=== PATIENT | female | born 1945 | race Caucasian/White ===

== ENCOUNTER → 2019-02-05 | Day surgery (SDC) | payer MEDICARE, OTHER ==
[~2019-02-05] MED LIST: AMLODIPINE BESY10 MG PO; ANORO INH; ASPIR 8181 MG PO; ATORVASTATIN CA20 MG PO; CO Q-10200 MG PO; FENTANYL CITRATE/PF 100MCG/2 ML INJ ONE; FLONASE; LEVOTHYROXINE75 MCG PO; LOSARTAN POTAS100 MG PO; METOPROLOL SUCC50 MG PO; MIDAZOLAM HCL 2 MG/2 ML VIAL ONE; MONTELUKAST SOD10 MG PO; MULTIVITAMINS1 EAC7 PO; OR PHACO EYE KIT ONE; PANTOPRAZOLE SO20 MG PO; POVIDONE IODINE 5% (OPTH) 30 ML BTL ONE; PREOP PHACO EYE KIT ONE; PROMETHAZINE DM PO; VITAMIN B12-FO1 EACH PO
--- OUTSIDE RECORDS SUMMARY | 2019-02-05 08:57 | XMS REPORT | Continuity of Care Document ---
Author Author [facility] Interface Address Unknown Phone Unavailable Problems Problem Status Onset Date Classification Date Reported Comments Source * Active 11/15/2018 [facility] M54.5 Active 09/20/2018 [facility] CCL/EP STUDY POSS SVT ABLATION W/RHYTHMI Active 01/29/2018 [facility] J18.9=PNEUMONIA, UNSPECIFIED ORGANISM Active 01/25/2018 [facility] CCL/LHC W/ POSS PCI Active 01/19/2018 [facility] Bronchopneumonia, unspecified organism 11/24/2017 02/25/2018 [facility] DEHYDRATION Active 11/14/2017 [facility] BRONCHIAL PNEUMONA, DEHYDRATION Active 11/14/2017 [facility] DX: M54.5=LOW BACK PAIN M54.6=PAIN Active 07/27/2017 [facility] M54.5 M54.6 Active 07/02/2017 [facility] DX: R92.8=OTHER ABNORMAL AND INCONCLUSIV Active 08/04/2016 [facility] ROUTINE Active 06/24/2015 [facility] 461.9 Active 11/05/2014 [facility] SCREENING Active 06/07/2013 [facility] ROUTINE SCREENING Active 04/24/2012 [facility] ARF - Acute renal failure Resolved 10/12/2010 Problem 02/25/2018 [facility] Abdominal hysterectomy Active Problem 02/25/2018 [facility] Appendectomy Active Problem 02/25/2018 [facility] Degenerative joint disease Active Problem 02/25/2018 [facility] GERD - Gastro-esophageal reflux disease Active Problem 02/25/2018 [facility] HTN - Hypertension Active Problem 02/25/2018 [facility] Hypothyroidism<sup>1</sup> Active Problem 02/25/2018 Data migrated from [facility] on 03/03/15. [facility] Knee replacement Active Problem 02/25/2018 [facility] Abdominal hysterectomy Active Problem 06/13/2013 [facility] Appendectomy Active Problem 06/13/2013 [facility] ARF - Acute renal failure Resolved Problem 06/13/2013 [facility] Degenerative joint disease Active Problem 06/13/2013 [facility] GERD - Gastro-esophageal reflux disease Active Problem 06/13/2013 [facility] HTN - Hypertension Active Problem 06/13/2013 [facility] Knee replacement Active Problem 06/13/2013 [facility] 02/25/2018 [facility],Enayet Rahi Acute kidney failure, unspecified 02/25/2018 [facility] Glomerular 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 02/25/2018 [facility] Occlusion and stenosis of right carotid artery 02/25/2018 [facility] Chronic kidney disease, stage 3 02/25/2018 [facility] Hypertensive chronic kidney disease with stage 1 through stage 4 chronic kidney disease, or unspecified chronic kidney disease 02/25/2018 [facility] Hypothyroidism, unspecified 02/25/2018 [facility] Encounter for immunization 02/25/2018 [facility] Personal history of nicotine dependence 02/25/2018 [facility] Proteinuria, unspecified 02/25/2018 [facility] Murmur Active Problem 02/25/2018 [facility] Hyperlipidemia Active Problem 02/25/2018 [facility] Hypertension Active Problem 02/25/2018 [facility] Lymphedema Active Problem 02/25/2018 [facility] Mitral valve prolapse Active Problem 02/25/2018 [facility] Tricuspid regurgitation Active Problem 02/25/2018 [facility] Breast cancer screening Active Problem 01/18/2019 Enayet Rahim Essential hypertension Active Problem 01/18/2019 Enayet Rahim Other chronic pain Active Problem 01/18/2019 Enayet Rahim Difficulty walking Active Problem 01/18/2019 Enayet Rahim Patient had no falls in past year Active Problem 01/18/2019 Enayet Rahim Screening for osteoporosis Active Problem 01/18/2019 Enayet Rahim Pure hypercholesterolemia Active Problem 01/18/2019 Enayet Rahim Chronic kidney disease , stage III (moderate) Active Diagnosis 01/18/2019 Enayet Rahim Acquired hypothyroidism Active Problem 01/18/2019 Enayet Rahim Acute tracheobronchitis Active Diagnosis 12/31/2017 Enayet Rahim Lumbar spine painful on movement Active Diagnosis 07/30/2017 Enayet Rahim Thoracic spine pain Active Diagnosis 07/30/2017 Enayet Rahim Pain of lumbar spine Active Diagnosis 07/30/2017 Enjade Rahim Persistent proteinuria Active Diagnosis 07/08/2017 Enfranket Rahim Toenail fungus Active Diagnosis 07/08/2017 Enjade Thomsonm Dysphagia Active Problem 05/20/2017 [id number] HTN Active Problem 05/20/2017 [id number] Hypothyroidism Active Problem 05/20/2017 [id number] CKD Active Problem 05/20/2017 [id number] Motion sickness Active Problem 05/20/2017 [id number] HLD Active Problem 05/20/2017 [id number] GERD Active Problem 05/20/2017 [id number] Pulmonary Mycobacterium avium complex infection Active Problem 01/18/2019 Dennis Suarez Near syncope Active Diagnosis 11/27/2017 Dennis Suarez Fatigue due to excessive exertion, subsequent encounter Active Diagnosis 02/14/2018 Dennis Thomsonm SOB Active Diagnosis 01/16/2018 Dennis Suarez Acute bronchitis, unspecified organism Active Diagnosis 12/04/2017 Dennis Suarez Community acquired pneumonia of left upper lobe of lung Active Diagnosis 01/16/2018 Dennis Suarez Pain in left knee Active Diagnosis 11/13/2016 Dennis Suarez At risk for falling Active Diagnosis 11/13/2016 Enjade Thomsonm Age-related nuclear cataract of both eyes Active Problem 01/18/2019 Dennis Thomsonm Pre-operative clearance Active Diagnosis 01/18/2019 John Pauljade Suarez ACUTE SINUSITIS NOS Active [facility] SCREEN MAMMOGRAM NEC Active [facility] OTH ABN AND INCONCLUSIVE FINDINGS ON DX Active [facility] LOW BACK PAIN Active [facility] SUPRAVENTRICULAR TACHYCARDIA Active [facility] RHEUMATIC MITRAL VALVE DISEASE, UNSPECIF Active [facility] AGE-RELATED OSTEOPOROSIS W/O CURRENT PAT Active [facility] ABNORMAL ELECTROCARDIOGRAM [ECG] [EKG] Active [facility] PNEUMONIA, UNSPECIFIED ORGANISM Active [facility] DEHYDRATION Active [facility] BRONCHOPNEUMONIA, UNSPECIFIED ORGANISM Active [facility] CHRONIC SINUSITIS, UNSPECIFIED Active [facility] Medications Medication Details Route Status Patient Instructions Ordering Provider Order Date Source Atorvastatin Calcium 1 tablet Orally Active 40 MG Orally Once a day [place]ver 09/17/2018 Dennis Suarez Amlodipine 10 mg, 1 tab, Route: PO, Drug form: TAB, Daily, Dosing Weight 89.091, kg, Start date: 02/14/18 9:00:00 CDT, Duration: 30 day, Stop date: 03/15/18 9:00:00 CDTNotes: (Same as: Norvasc) No Longer Active 02/14/2018 [facility] Thyroxine 150 microgram, 1 tab, Route: PO, Drug form: TAB, Daily, Dosing Weight 89.091, kg, Start date: 02/14/18 6:30:00 CDT, Duration: 30 day, Stop date: 03/15/18 6:30:00 CDTNotes: Take 1 hour before or 2 hours after meal; Enteral feeds may interefere with the absorption of this medication. (Same as: Levothroid) No Longer Active 02/14/2018 [facility] mycophenolate mofetil 1,000 mg, 2 tab, Route: PO, Drug form: TAB, Q12H, Dosing Weight 89.091, kg, Start date: 02/13/18 21:00:00 CDT, Duration: 30 day, Stop date: 03/15/18 9:00:00 CDTNotes: SEPARATE ANTACIDS from [employer] by 2 hrs. (Same As: CellCept) Inactive 02/14/2018 [facility] atorvastatin 80 mg, 2 tab, Route: PO, Drug form: TAB, Bedtime, Dosing Weight 89.091, kg, Start date: 02/13/18 21:00:00 CDT, Duration: 30 day, Stop date: 03/14/18 21:00:00 CDTNotes: (Same as: Lipitor) Inactive 02/14/2018 [facility] Aspirin 81 MG Enteric Coated Tablet 81 mg, 1 tab, Route: PO, Drug form: ECTAB, Bedtime, Dosing Weight 89.091, kg, Start date: 02/13/18 21:00:00 CDT, Duration: 30 day, Stop date: 03/14/18 21:00:00 CDTNotes: Do not crush or chew. (Same As: Ecotrin) Inactive 02/14/2018 [facility] pantoprazole 40 mg, 1 tab, Route: PO, Drug form: ECTAB, BID-Before Meals, Dosing Weight 89.091, kg, Start date: 02/13/18 16:30:00 CDT, Duration: 30 day, Stop date: 03/15/18 7:30:00 CDTNotes: Tablet should not be chewed or crushed. (Same as: Protonix) Inactive 02/13/2018 [facility] Nitroglycerin 0.4 mg, 1 tab, Route: SL, Drug form: TAB, Q5Min, Dosing Weight 89.091, kg, PRN Chest Pain, Start date: 02/13/18 16:05:00 CDT, Duration: 3 doses or times, Stop date: Limited # of timesNotes: (Same as: Nitroquick, Nitrostat) "Do Not Crush" Sublingual tablet Inactive 02/13/2018 [facility] Losartan 100 mg, 1 tab, Route: PO, Drug form: TAB, Daily, Dosing Weight 89.091, kg, PRN Hypertension, Start date: 02/13/18 16:04:00 CDT, Duration: 30 day, Stop date: 03/15/18 16:03:00 CDTNotes: (Same as: Nae) Inactive 02/13/2018 [facility] amLODIPine 10 mg oral tablet 10 mg=1 tab, PO, Daily, # 30 tab, 0 Refill(s) Active 02/13/2018 [facility] NS 1,000 mL 1,000 mL, Rate: 100 ml/hr, Infuse over: 10 hr, Route: IV, Dosing Weight 89.091 kg, Total Volume: 1,000, Start date: 02/13/18 7:42:00 CDT, Duration: 30 day, Stop date: 03/15/18 7:41:00 CDT, 2.13, m2 Inactive 02/13/2018 [facility] atorvastatin 80 mg, 1 tab, Route: PO, Drug form: TAB, Bedtime, Dosing Weight 87.727, kg, Start date: 01/22/18 21:00:00 CDT, Duration: 30 day, Stop date: 02/20/18 21:00:00 CDTNotes: Same as Lipitor No Longer Active 01/23/2018 [facility] Aspirin 81 MG Enteric Coated Tablet 81 mg, 1 tab, Route: PO, Drug form: ECTAB, Bedtime, Dosing Weight 87.727, kg, Start date: 01/22/18 21:00:00 CDT, Duration: 30 day, Stop date: 02/20/18 21:00:00 CDTNotes: Do not crush or chew. (Same As: Ecotrin) No Longer Active 01/23/2018 [facility] mycophenolate mofetil 1,000 mg, 2 tab, Route: PO, Drug form: TAB, [id number], Dosing Weight 87.727, kg, Start date: 01/22/18 20:00:00 CDT, Duration: 30 day, Stop date: 02/21/18 8:00:00 CDTNotes: SEPARATE ANTACIDS from [employer] by 2 hrs. (Same As: CellCept) No Longer Active 01/23/2018 [facility] Amiodarone 200 mg, 1 tab, Route: PO, Drug form: TAB, BID, Dosing Weight 87.727, kg, Start date: 01/22/18 17:00:00 CDT, Duration: 30 day, Stop date: 02/21/18 9:00:00 CDTNotes: (Same as: Cordarone) No Longer Active 01/22/2018 [facility] normal saline 0.9% IV 1,000 mL 1,000 mL, Rate: 100 ml/hr, Infuse over: 10 hr, Route: IV, Dosing Weight 87.727 kg, Total Volume: 1,000, Start date: 01/22/18 15:15:00 CDT, Duration: 30 day, Stop date: 02/21/18 15:14:00 CDT, 2.11, m2 No Longer Active 01/22/2018 [facility] Amlodipine 5 mg, 1 tab, Route: PO, Drug form: TAB, Daily, Dosing Weight 87.727, kg, PRN Hypertension, Start date: 01/22/18 15:14:00 CDT, Duration: 30 day, Stop date: 02/21/18 15:13:00 CDTNotes: (Same as: Norvas) No Longer Active 01/22/2018 [facility] metoprolol 50 mg oral tablet, extended release 50 mg=1 tab, PO, Daily, # 30 tab, 0 Refill(s) Active 01/22/2018 [facility] atorvastatin 80 mg oral tablet 80 mg=1 tab, PO, Bedtime, # 90 tab, 0 Refill(s) Active 01/22/2018 [facility] Aspirin 81 MG Enteric Coated Tablet 81 mg=1 tab, PO, Bedtime, # 90 tab, 3 Refill(s) Active 01/22/2018 [facility] AMIODarone 200 mg oral tablet 200 mg=1 tab, PO, BID, # 180 tab, 0 Refill(s) Active 01/22/2018 [facility] Amlodipine 5 mg, PO, Daily, PRN Hypertension, 0 Refill(s) Active 01/22/2018 [facility] PredniSONE as directed Orally Active 20 mg Orally 40mg, 30 mg 20 mg , 10 mg, taper dose [facility] 1 tab Orally Active 500 MG Orally daily 01/12/2018 [facility] Flutic[facility] Propionate 1 spray in each nostril Nasally Active 50 MCG/ACT Nasally Once a day 11/28/2017 [facility] Atrovent HFA 2 puffs Inhalation Active 17 MCG/ACT Inhalation Four times a day as needed 11/28/2017 [facility] Fexofenadine HCl 1 tablet as needed Orally Active 60 MG Orally Twice a day 11/28/2017 [facility] predniSONE 10 mg oral tablet See Special Instructions, PO, Daily, D 1 - 3 tabs D2 - 2 1/2 tab D3 - 2 tabs D 4 -1 1/2 tab D5 - 1 tab D 6 - 1/2 tab, X 6 day, # 12 tab, 0 Refill(s), Pharmacy: [facility] [id number] No Longer Active 11/19/2017 [facility] azithromycin 500 mg oral tablet 500 mg=1 tab, PO, Daily, X 5 day, # 5 tab, 0 Refill(s), Pharmacy: [facility] [id number] No Longer Active 11/19/2017 [facility] amLODIPine 5 mg oral tablet 5 mg=1 tab, PO, Daily, # 30 tab, 3 Refill(s), Pharmacy: [facility] [id number] No Longer Active 11/19/2017 [facility] Omnipaque 350 100 ml, Route: IV, Drug Form: SOLN, Dosing Weight 93.636, kg, ONCE, Start date: 11/18/17 10:03:00 FIELD REIMBURSEMENT MANAGER, Stop date: 11/18/17 10:03:00 CSTNotes: (same as:Omnipaque 350). WASTE: F/P - Black; E - [employer] Inactive 11/18/2017 [facility] Amlodipine 5 mg, 1 tab, Route: PO, Drug form: TAB, Daily, Dosing Weight 93.636, kg, Start date: 11/18/17 9:00:00 FIELD REIMBURSEMENT MANAGER, Duration: 30 day, Stop date: 12/17/17 9:00:00 CDTNotes: (Same as: Norvasc) No Longer Active 11/18/2017 [facility] Acetylcysteine 200 MG/ML Inhalant Solution 600 mg, Route: PO, Drug form: SOLN, BID, Dosing Weight 93.636, kg, Start date: 11/17/17 17:00:00 FIELD REIMBURSEMENT MANAGER, Duration: 2 day, Stop date: 11/19/17 9:00:00 FIELD REIMBURSEMENT MANAGER Inactive 11/17/2017 [facility] Plavix 75 mg, 1 tab, Route: PO, Drug form: TAB, Daily, Dosing Weight 93.636, kg, Start date: 11/17/17 9:00:00 FIELD REIMBURSEMENT MANAGER, Duration: 30 day, Stop date: 12/16/17 9:00:00 CDTNotes: (Same As: Plavix) Inactive 11/17/2017 [facility] Acetylcysteine 200 MG/ML Inhalant Solution 600 mg, 3 mL, Route: PO, Drug form: SOLN, BID, Dosing Weight 93.636, kg, Start date: 11/17/17 9:00:00 FIELD REIMBURSEMENT MANAGER, Duration: 2 day, Stop date: 11/18/17 17:00:00 FIELD REIMBURSEMENT MANAGER No Longer Active 11/17/2017 [facility] Xopenex 0.63 mg, 3 mL, Route: NEB, Drug form: SOLN, PRN, PRN Respiratory Protocol, Start date: 11/16/17 11:55:00 FIELD REIMBURSEMENT MANAGER, Duration: 30 day, Stop date: 12/16/17 12:54:00 CDTNotes: SEE RT DOCUMENTATION (Same as:Xopenex) Non-Formulary No Longer Active 11/16/2017 [facility] methylPREDNISolone SODium SUCCinate 40 mg, 1 mL, Route: IVP, Drug form: INJ, Q12H, Dosing Weight 93.636, kg, Start date: 11/16/17 9:07:00 FIELD REIMBURSEMENT MANAGER, Duration: 30 day, Stop date: 12/16/17 9:00:00 CDTNotes: (Same as:Solu-MEDROL, A-Methapred) No Longer Active 11/16/2017 [facility] Tylenol 650 mg, 20.3 mL, Route: PO, Drug form: LIQ, Q6H, Dosing Weight 93.636, kg, PRN Pain Score 6-10, Start date: 11/16/17 9:04:00 FIELD REIMBURSEMENT MANAGER, Duration: 30 day, Stop date: 12/16/17 9:03:00 CDTNotes: Max acetaminophe p=9332fb/day (4 gm/day). (Same as: Tylenol) No Longer Active 11/16/2017 [facility] Xopenex 0.63 mg, Route: NEB, PRN, Dosing Weight 93.636, kg, PRN Respiratory Protocol, Start date: 11/16/17 7:42:00 FIELD REIMBURSEMENT MANAGER, Duration: 30 day, Stop date: 12/16/17 8:41:00 CDT, Substitute Allowed Never Inactive 11/16/2017 [facility] albuterol 1.25 mg, 3 mL, Route: NEB, Drug form: SOLN, PRN, PRN Respiratory Protocol, Start date: 11/16/17 7:35:00 FIELD REIMBURSEMENT MANAGER, Duration: 30 day, Stop date: 12/16/17 8:34:00 CDTNotes: SEE RT DOCUMENTATION (Same as: Proventil) Inactive 11/16/2017 [facility] Xopenex 0.63 mg, Route: NEB, PRN, Dosing Weight 93.636, kg, PRN Respiratory Protocol, Start date: 11/16/17 7:31:00 FIELD REIMBURSEMENT MANAGER, Duration: 30 day, Stop date: 12/16/17 8:30:00 CDT Inactive 11/16/2017 [facility] Imodium A-D 2 mg, 1 cap, Route: PO, Drug form: CAP, Q6H, Dosing Weight 93.636, kg, PRN Loose Stools, Start date: 11/15/17 20:08:00 FIELD REIMBURSEMENT MANAGER, Duration: 30 day, Stop date: 12/15/17 20:07:00 CDTNotes: (Same as: Imodium) MAX adult dose is 8 caps/day No Longer Active 11/16/2017 [facility] Losartan 100 mg, 2 tab, Route: PO, Drug form: TAB, Daily, Dosing Weight 92.273, kg, Start date: 11/15/17 9:00:00 FIELD REIMBURSEMENT MANAGER, Duration: 30 day, Stop date: 12/14/17 9:00:00 CDTNotes: (Same as: Cozaar) No Longer Active 11/15/2017 [facility] Vitamin B12 500 microgram, 1 tab, Route: PO, Drug form: TAB, Daily, Dosing Weight 92.273, kg, Start date: 11/15/17 9:00:00 FIELD REIMBURSEMENT MANAGER, Duration: 30 day, Stop date: 12/14/17 9:00:00 CDTNotes: (Same As: Vitamin B12) No Longer Active 11/15/2017 [facility] Lipitor 40 mg, 1 tab, Route: PO, Drug form: TAB, Daily, Dosing Weight 92.273, kg, Start date: 11/15/17 9:00:00 FIELD REIMBURSEMENT MANAGER, Duration: 30 day, Stop date: 12/14/17 9:00:00 CDTNotes: (Same as: Lipitor) No Longer Active 11/15/2017 [facility] influenza virus vaccine, inactivated 0.5 mL, Route: IM, Drug Form: SUSP, Daily, Start date: 11/15/17 9:00:00 FIELD REIMBURSEMENT MANAGER, Duration: 1 doses or times, Stop date: 11/15/17 9:00:00 CSTNotes: (Same as: Fluzone Quadrivalent, Fluarix Quadrivalent) For 3 years of age and older (0.5 mL IM) Shake well before use Inactive 11/15/2017 [facility] Streptococcus pneumoniae serotype 1 capsular antigen diphtheria [id number] protein conjugate vaccine / Streptococcus pneumoniae serotype 14 capsular antigen diphtheria [id number] protein conjugate vaccine / Streptococcus pneumoniae serotype 18C capsular antigen d 0.5 mL, Route: IM, Drug Form: INJ, Daily, Start date: 11/15/17 9:00:00 FIELD REIMBURSEMENT MANAGER, Duration: 1 doses or times, Stop date: 11/15/17 9:00:00 CSTNotes: Shake well prior to use (Same as: Prevnar 13) Inactive 11/15/2017 [facility] Co-Q10 200 mg, Route: PO, Drug form: CAP, Daily, Dosing Weight 92.273, kg, Start date: 11/15/17 9:00:00 FIELD REIMBURSEMENT MANAGER, Duration: 30 day, Stop date: 12/14/17 9:00:00 CDT No Longer Active 11/15/2017 [facility] mycophenolate mofetil 1,000 mg, 2 tab, Route: PO, Drug form: TAB, Daily, Dosing Weight 92.273, kg, Start date: 11/15/17 9:00:00 FIELD REIMBURSEMENT MANAGER, Duration: 30 day, Stop date: 12/14/17 9:00:00 CDTNotes: SEPARATE ANTACIDS from [employer] by 2 hrs. (Same As: CellCept) No Longer Active 11/15/2017 [facility] metoprolol extended release 25 mg, 1 tab, Route: PO, Drug form: ERTAB, BID, Dosing Weight 92.273, kg, Start date: 11/15/17 9:00:00 FIELD REIMBURSEMENT MANAGER, Duration: 30 day, Stop date: 12/14/17 21:00:00 CDTNotes: (Same as: Toprol XL) Do Not Crush No Longer Active 11/15/2017 [facility] Robitussin DM 10 mL, Route: PO, Drug Form: LIQ, Dosing Weight 92.273, kg, Q4H, PRN as needed for cough, Start date: 11/15/17 8:49:00 FIELD REIMBURSEMENT MANAGER, Duration: 30 day, Stop date: 12/15/17 8:48:00 CDTNotes: (dextromethorphan-g uaifenesin 10-100/5 ml LIQ) (Same as: Robitussin-DM) No Longer Active 11/15/2017 [facility] Albuterol 0.83 MG/ML Inhalant Solution 2.49 mg, 3 mL, Route: NEB, Drug form: SOLN, PRN, Dosing Weight 92.273, kg, PRN Respiratory Protocol, Start date: 11/15/17 8:49:00 FIELD REIMBURSEMENT MANAGER, Duration: 30 day, Stop date: 12/15/17 9:48:00 CDTNotes: SEE RT DOCUMENTATION (Same as: Proventil) No Longer Active 11/15/2017 [facility] pantoprazole 40 mg, 1 tab, Route: PO, Drug form: ECTAB, BID-Before Meals, Dosing Weight 92.273, kg, Start date: 11/15/17 7:30:00 FIELD REIMBURSEMENT MANAGER, Duration: 30 day, Stop date: 12/14/17 16:30:00 CDTNotes: Tablet should not be chewed or crushed. (Same as: Protonix) No Longer Active 11/15/2017 [facility] Thyroxine 150 microgram, 1 tab, Route: PO, Drug form: TAB, Q630AM, Dosing Weight 92.273, kg, Start date: 11/15/17 6:30:00 FIELD REIMBURSEMENT MANAGER, Duration: 30 day, Stop date: 12/14/17 6:30:00 CDTNotes: Take 1 hour before or 2 hours after meal; Enteral feeds may interefere with the absorption of this medication. (Same as: Levothroid) No Longer Active 11/15/2017 [facility] *RN pls bring pts home med Co-Q10 to pharmacy to label* *RN pls bring pts home med Co-Q10 to pharmacy to label*, Reminder, Drug form: MISC, Route: MISC, QSHIFT, 11/15/17 0:00:00 FIELD REIMBURSEMENT MANAGER, Duration: 30 day, Stop date: 12/14/17 16:00:00 CDT No Longer Active 11/15/2017 [facility] Lipitor 40 mg, 1 tab, Route: PO, Drug form: TAB, Bedtime, Dosing Weight 92.273, kg, Start date: 11/14/17 21:30:00 FIELD REIMBURSEMENT MANAGER, Duration: 30 day, Stop date: 12/14/17 21:00:00 CDTNotes: (Same as: Lipitor) No Longer Active 11/15/2017 [facility] benazepril 40 mg, Route: PO, Drug form: TAB, Bedtime, Dosing Weight 92.273, kg, Start date: 11/14/17 21:00:00 FIELD REIMBURSEMENT MANAGER, Duration: 30 day, Stop date: 12/13/17 21:00:00 CDT Inactive 11/15/2017 [facility] Robitussin 100 mg, 5 mL, Route: PO, Drug Form: LIQ, Dosing Weight 92.273, kg, Q4H, PRN as needed for congestion, Start date: 11/14/17 21:00:00 FIELD REIMBURSEMENT MANAGER, Duration: 30 day, Stop date: 12/14/17 20:59:00 CDTNotes: (Same as: Robitussin) No Longer Active 11/15/2017 [facility] mycophenolate mofetil 500 mg, 1 tab, Route: PO, Drug form: TAB, Bedtime, Dosing Weight 92.273, kg, Start date: 11/14/17 21:00:00 FIELD REIMBURSEMENT MANAGER, Duration: 30 day, Stop date: 12/13/17 21:00:00 CDTNotes: SEPARATE ANTACIDS from [employer] by 2 hrs. (Same As: CellCept) No Longer Active 11/15/2017 [facility] lisinopril 40 mg, 2 tab, Route: PO, Drug form: TAB, Bedtime, Start date: 11/14/17 21:00:00 FIELD REIMBURSEMENT MANAGER, Duration: 30 day, Stop date: 12/13/17 21:00:00 CDTNotes: (Same as: Prinivil, Zestril) No Longer Active 11/15/2017 [facility] mycophenolate mofetil 500 mg oral tablet 1,000 mg=2 tab, PO, Q12H, # 360 tab, 0 Refill(s) Active 11/15/2017 [facility] levothyroxine 150 mcg (0.15 mg) oral tablet 150 microgram=1 tab, PO, Daily, # 90 tab, 1 Refill(s) Active 11/15/2017 [facility] Promethazine DM oral syrup 5 mL, PO, BID-Before Meals, PRN for cough, # 120 mL, 0 Refill(s) No Longer Active 11/15/2017 [facility] benazepril 40 mg oral tablet 40 mg=1 tab, PO, Bedtime, # 90 tab, 0 Refill(s) No Longer Active 11/15/2017 [facility] Rocephin 1 gm, Route: IV, Drug form: PDR/INJ, [id number], Dosing Weight 90.909, kg, Start date: 11/14/17 18:00:00 FIELD REIMBURSEMENT MANAGER, Duration: 7 day, Stop date: 11/20/17 18:00:00 FIELD REIMBURSEMENT MANAGER, ABX Indication: PneumoniaNotes: (Same As: Michelle cephin). Use with 100 mL NS and infuse over 30 min MEDICATION WASTE Product Size: 1000 mg Product Wasted: ___ mg No Longer Active 11/15/2017 [facility] Azithromycin 500 mg, Route: IVPB, [id number], Dosing Weight 90.909, kg, Start date: 11/14/17 18:00:00 FIELD REIMBURSEMENT MANAGER, Duration: 10 day, Stop date: 11/23/17 18:00:00 FIELD REIMBURSEMENT MANAGER, ABX Indication: PneumoniaNotes: (Same As: Zithromax IV) No Longer Active 11/15/2017 [facility] Albuterol 0.83 MG/ML Inhalant Solution 2.49 mg, 3 mL, Route: NEB, Drug form: SOLN, PRN, Dosing Weight 92.273, kg, PRN Respiratory Protocol, Start date: 11/14/17 17:47:00 FIELD REIMBURSEMENT MANAGER, Duration: 30 day, Stop date: 12/14/17 18:46:00 CDTNotes: SEE RT DOCUMENTATION (Same as: Proventil) No Longer Active 11/14/2017 [facility] Docusate 100 mg, 1 cap, Route: PO, Drug form: CAP, BID, Dosing Weight 90.909, kg, PRN as needed for constipation, 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, Duration: 30 day, Stop date: 12/14/17 17:39:00 CDTNotes: (Same as: Colace) (Do Not Crush) No Longer Active 11/14/2017 [facility] Ondansetron 4 mg, 2 mL, Route: IVP, Drug form: INJ, Q6H, Dosing Weight 90.909, kg, PRN Nausea & Vomiting, 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, Duration: 30 day, Stop date: 12/14/17 17:39:00 CDTNotes: (Same as: Zofran) MEDICATION WASTE Product Size: 4 mg Product Wasted: ___ mg No Longer Active 11/14/2017 [facility] Morphine 6 mg, 3 mL, Route: PO, Drug form: SOLN, Q4H, Dosing Weight 90.909, kg, PRN Pain Score 7-10, 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, Duration: 30 day, Stop date: 12/14/17 17:39:00 CDTNotes: (Same as:MORPhine Sulfate) No Longer Active 11/14/2017 [facility] Saline Flush 0.9% 10 ml, Route: IVP, Drug Form: INJ, Dosing Weight 90.909, kg, PRN, PRN Line Flush, 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, Duration: 30 day, Stop date: 12/14/17 18:39:00 CDTNotes: (Same as: BD Posiflush) No Longer Active 11/14/2017 [facility] Sodium Chloride 0.9% IV 1,000 mL 1,000 mL, Rate: 75 ml/hr, Infuse over: 13.3 hr, Route: IV, Dosing Weight 93.636 kg, Total Volume: 1,000, 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, Stop date: 12/14/17 16:39:00 CDT, 2.18, m2 No Longer Active 11/14/2017 [facility] Promethazine-DM 5 ml as needed Orally Active 6.25-15 MG/5ML Orally twice a day (bid) as needed (prn) 11/06/2017 Dennis Suarez Levaquin 1 tablet Orally Active 500 MG Orally Once a day 11/06/2017 Dennis Suarez Albuterol Sulfate HFA 2 puffs as needed Inhalation Active 108 (90 Base) MCG/ACT Inhalation twice a day as needed 11/06/2017 Dennis Suarez Medrol as directed Orally Active 4 MG Orally as directed 11/06/2017 Dennis Suarez LamISIL AT [place] 1 drop to affected area Externally Active 1 % Externally Twice a day 06/28/2017 Enjade Thomsonm LamISIL AT [place] 1 drop to affected area Externally Active 1 % Externally Twice a day 06/28/2017 Dennis Suarez influenza virus vaccine, inactivated 0.5 ml, Route: IM, Drug Form: INJ, ONCALL, Start date: 10/11/10 15:00:00, Duration: 1 doses or times IM No Longer Active SYSTEM 10/11/2010 [facility] pneumococcal 23-valent vaccine 0.5 ml, Route: IM, Drug Form: INJBLANCA, Start date: 10/22/08 23:30:45, Stop date: 11/21/08 23:15:45 IM No Longer Active SYSTEM 10/23/2008 [facility] influenza virus vaccine, inactivated 0.5 ml, Route: IM, Drug Form: INJBLANCA, Start date: 10/22/08 23:30:44, Stop date: 11/21/08 23:15:44 IM No Longer Active SYSTEM 10/23/2008 [facility] Losartan Potassium 1 tablet Orally Active 100 MG Orally Once a day [facility] Dennis Thomson,[id number] Levothyroxine Sodium 1 TABLET ONCE A DAY ORALLY 90 DAYS orally Active 150 MCG orally daily [facility] Losartan Potassium 1 TABLET ONCE A DAY ORALLY 90 DAYS orally Active 100 MG orally daily [facility] Amlodipine Besylate 1 tablet Orally Active 10 mg Orally bid [facility] Benazepril HCl 1 tablet once a day orally 90 days by mouth Active 40 mg by mouth daily [facility] Atorvastatin Calcium 1 tablet Orally Active 80 MG Orally Once a day [facility] Metoprolol Succinate ER 1 tablet Orally Active 50 mg Orally Twice a day [facility] Mycophenolate Mofetil 2 tablets in the morning and 1 tablet at night time Orally Active 500 MG Orally Trever Thomson Vagifem 1 tablet Vaginal Active 10 MCG Vaginal [facility] Multi Vitamin Daily 1 tablet Orally Active Orally Once a day [facility] [id number] not defined Orally Active 1 MG Orally [facility] Benzonatate 1 capsule Orally Active 200 MG Orally Three times a day [facility] Baby Aspirin not defined NA Active [facility] Atorvastatin Calcium 1/2 tablet Orally Active 80 mg Orally at bedtime [facility] Pantoprazole Sodium 1 tablet Orally Active 40 MG Orally BID [facility] Montelukast Sodium 1 tablet Orally Active 10 MG Orally Once a day [facility] Atorvastatin Calcium 1 tablet Orally Active 40 MG Orally Once a day [facility] Breo Ellipta 1 puff Inhalation Active 100-25 MCG/INH Inhalation Once a day [facility] Mycophenolate Mofetil 1 tablet Orally Active 500 mg Orally daily [facility] Metoprolol Succinate ER 1 tablet Orally Active 50 mg Orally Twice a day [facility] Amlodipine Besylate 1 tablet Orally Active 10 mg Orally Once a day as needed [facility] Amlodipine Besylate 1 tablet Orally Active 10 MG Orally Once a day [place] [id number] Lipitor 1 tablet Orally Active 40 MG Orally Once a day [place] [id number] Metoprolol Succinate ER 1 tablet Orally Active 50 MG Orally Once a day [place] [id number] Levothyroxine Sodium TAKE 1 TABLET BY MOUTH EVERY DAY NA Active 150 [place] [id number] Lipitor 1 tablet Orally Active 80 mg Orally Once a day [place] [id number] Atorvastatin Calcium 1 tablet Orally Active 80 MG Orally Once a day [facility] [id number] Unknown Orally Active 1 MG Orally [facility] Benazepril HCl 1 tablet Orally Active 40 MG Orally Once a day [facility] Vagifem 1 tablet Vaginal Active 10 MCG Vaginal [facility] Multi Vitamin Daily 1 tablet Orally Active Orally Once a day [facility] Metoprolol Succinate ER 1 tablet Orally Active 50 MG Orally Once a day [facility] Levothyroxine Sodium 1 tablet Orally Active 150 MCG Orally Once a day [facility] Baby Aspirin Unknown NA Active [facility] Pantoprazole Sodium 1 tablet Orally Active 40 MG Orally BID [facility] Anoro Ellipta 1 puff Inhalation Active 62.5-25 MCG/INH Inhalation Once a day [facility] John Pauljade Haddadmagalyneil Allergies, Adverse Reactions, Alerts Substance Category Reaction Severity Reaction type Status Date Reported Comments Source sulfa drugs<sup>1</sup> Assertion Drug allergy Active 02/16/2009 Data migrated from [employer] on 04/30/15. Originally documented as SULFA. Dermatological problems, e.g., rash, hives [facility] sulfa Adverse Reaction Info Not Available Adverse Reaction Active 02/01/2018 Dennis Haddadmagalyneil Vicodin Adverse Reaction Info Not Available Adverse Reaction Active 01/15/2019 John Paulfrankchristiana Alixneil Celebrex Assertion Drug allergy Active [facility] codeine Assertion Drug allergy Active [facility] Albuterol Sulfate Assertion Drug allergy Active [facility] sulfa drugs drug allergy Allergy Active [facility] Immunizations Immunization Date Given Site Status Last Updated Comments Source pneumococcal 13-valent vaccine 11/15/2017 Right Deltoid completed Judy [facility] influenza virus vaccine, inactivated 11/15/2017 Left Deltoid completed Judy [facility] influenza virus vaccine, inactivated 10/14/2010 Left deltoid completed Marilee [facility] influenza virus vaccine, inactivated 10/14/2010 completed Marilee [facility] pneumococcal 23-valent vaccine 10/24/2008 Left Arm completed Deena [facility] influenza virus vaccine, inactivated 10/24/2008 Left Arm completed Deena [facility] pneumococcal 23-valent vaccine 10/24/2008 Left Arm completed Deena [facility] pneumococcal 23-valent vaccine 10/24/2008 completed Deena [facility] influenza virus vaccine, inactivated 10/24/2008 completed Deena [facility] Results Order Name Results Value Reference Range Date Interpretation Comments Source Sinus paranasal series DX Sinus paranasal series DX Exam: Sinus paranasal series DX Clinical Indication: - J32.9 Chronic sinusitis, unspecified Comparison: Brain/neck CTA 11/18/2017 FINDINGS: 3 views of the sinuses are performed. Mucosal thickening present in bilateral maxillary sinuses. Suspected mucosal thickening also present in bilateral sphenoid sinuses. The frontal sinuses and ethmoid air cells appear clear. No air-fluid levels appreciated. No acute osseous abnormality identified. The nasal septum is midline. The nasopharynx region is grossly unremarkable. The visualized mastoid air cells are adequately aerated. If there is further concern, sinus CT may be performed for complete assessment. IMPRESSION: 1. Bilateral maxillary sinus mucosal thickening and suspected bilateral sphenoid sinus mucosal thickening without appreciable air-fluid levels consistent with chronic sinusitis. Similar findings present on prior brain/neck CTA on 11/18/2017. SL: [id number] 11/15/2018 - - Read by: Jon Spears MD Dictated Date/time: 11/15/18 16:43 Electronically Signed by: Jon Spears MD 11/15/18 16:50 FINAL REPORT [facility] Spine lumbar series DX Spine lumbar series DX Exam: Spine lumbar series DX Clinical Indication: - m54.5 lower back pain Comparison: Lumbar spine radiographs 08/12/2009 FINDINGS: 5 views of the lumbar spine are performed. There are 5 nonrib-bearing lumbar type vertebral bodies identified in anatomic alignment. No significant spondylolisthesis or evidence of spondylolysis. Chronic mild to moderate compression deformity at L1 status post vertebroplasty/kyphoplasty. Remaining lumbar vertebral heights are maintained. Posterior elements, spinous processes and transverse processes are unremarkable. Moderate multilevel degenerative disc disease throughout the lumbar spine with loss of disc height and marginal endplate osteophyte formation. Facet arthropathy is present most prominent in the lower lumbar spine. The visualized sacroiliac joints are unremarkable. Atherosclerotic ulcerations are present in the abdominal aorta. IVC filter is in place. If there is further concern or neurological abnormalities on clinical exam, MRI or CT of the lumbar spine may be performed for complete assessment. IMPRESSION: 1. No acute radiographic abnormality in the lumbar spine. 2. Moderate multilevel degenerative changes of the lumbar spine. 3. Chronic mild to moderate L1 compression deformity status post vertebroplasty/kyphoplasty. SL: [id number] 09/20/2018 - - Read by: Jon Spears MD Dictated Date/time: 09/20/18 14:28 Electronically Signed by: Jon Spears MD 09/20/18 14:30 FINAL REPORT [facility] BLOOD BANK RESULTS Antibody Scrn Negative (02/13/18 7:51 AM) 02/13/2018 [facility] BLOOD BANK RESULTS ABO/Rh A POS 02/13/2018 [facility] CHEM PANEL Magnesium Lvl 2.0 mg/dL 1.8 - 2.4 02/13/2018 [facility] ELECTROLYTES AGAP 13.5 meq/L 10.0 - 20.0 02/13/2018 [facility] ELECTROLYTES eGFR 41 mL/min/1.73m2 02/13/2018 Result Comment: The eGFR is calculated using the CKD-EPI formula. In most young, healthy individuals the eGFR will be >90 mL/min/1.73m2. The eGFR declines with age. An eGFR of 60-89 may be normal in some populations, particularly the elderly, for whom the CKD-EPI formula has not been extensively validated. Use of the eGFR is not recommended in the following populations: Individuals with unstable creatinine concentrations, including patients and those with serious co-morbid conditions. Patients with extremes in muscle mass or diet. The data above are obtained from the National Kidney Disease Education Program (NKDEP) which additionally recommends that when the eGFR is used in patients with extremes of body mass index for purposes of drug dosing, the eGFR should be multiplied by the estimated BMI. [facility] ELECTROLYTES Potassium Lvl 3.5 meq/L 3.5 - 5.1 02/13/2018 [facility] ELECTROLYTES Chloride Lvl 105 meq/L 95 - 109 02/13/2018 [facility] ELECTROLYTES Glucose Lvl 117 mg/dL 70 - 99 02/13/2018 [facility] ELECTROLYTES Calcium Lvl 9.4 mg/dL 8.5 - 10.5 02/13/2018 [facility] ELECTROLYTES CO2 28 meq/L 24 - 32 02/13/2018 [facility] ELECTROLYTES Sodium Lvl 143 meq/L 135 - 145 02/13/2018 [facility] ELECTROLYTES Creatinine Lvl 1.29 mg/dL 0.50 - 1.40 02/13/2018 [facility] ELECTROLYTES BUN 16 mg/dL 7 - 22 02/13/2018 [facility] HEMATOLOGY INR 1.00 0.85 - 1.17 02/13/2018 [facility] HEMATOLOGY PT 13.2 s 12.0 - 14.7 02/13/2018 [facility] HEMATOLOGY PTT 35.3 s 22.9 - 35.8 02/13/2018 [facility] HEMATOLOGY MPV 8.4 fL 7.4 - 10.4 02/13/2018 [facility] HEMATOLOGY RDW 15.8 % 11.5 - 14.5 02/13/2018 [facility] HEMATOLOGY Platelet 203 K/CMM 133 - 450 02/13/2018 [facility] HEMATOLOGY MCHC 33.0 g/dL 32.0 - 36.0 02/13/2018 [facility] HEMATOLOGY MCH 30.1 pg 27.0 - 31.0 02/13/2018 [facility] HEMATOLOGY Hct 36.8 % 36.0 - 48.0 02/13/2018 [facility] HEMATOLOGY MCV 91.1 fL 80.0 - 98.0 02/13/2018 [facility] HEMATOLOGY WBC 5.8 K/CMM 3.7 - 10.4 02/13/2018 [facility] HEMATOLOGY RBC 4.04 M/CMM 4.20 - 5.40 02/13/2018 [facility] HEMATOLOGY Hgb 12.1 g/dL 12.0 - 16.0 02/13/2018 [facility] HEMATOLOGY Monocytes 10.8 % 2.0 - 12.0 02/13/2018 [facility] HEMATOLOGY Basophils 0.7 % 0.0 - 1.0 02/13/2018 [facility] HEMATOLOGY Eosinophils 3.6 % 0.0 - 4.0 02/13/2018 [facility] HEMATOLOGY Lymphocytes # 1.1 K/CMM 1.0 - 5.5 02/13/2018 [facility] HEMATOLOGY Segs-Bands # 3.9 K/CMM 1.5 - 8.1 02/13/2018 [facility] HEMATOLOGY Eosinophils # 0.2 K/CMM 0.0 - 0.5 02/13/2018 [facility] HEMATOLOGY Monocytes # 0.6 K/CMM 0.0 - 0.8 02/13/2018 [facility] HEMATOLOGY Segs 66.9 % 45.0 - 75.0 02/13/2018 [facility] HEMATOLOGY Lymphocytes 18.0 % 20.0 - 40.0 02/13/2018 [facility] Chest wo contrast CT Chest wo contrast CT Patient Name: ROSALINDA PRATT : 1945; Age: 72 years y/o Female MR: [id number] Study: Chest wo contrast CT 01/27/2018 12:06 PM CDT Ordering Physician: Juventino Shaffer MD Clinical Indication: - J18.9 Pneumonia, unspecified organism; Comparison: None TECHNIQUE: Sequential trans-axial images were obtained thru the chest and upper abdomen without iodinated contrast. Coronal and sagittal reconstructions were obtained. Dose: JBY=299 mGy-cm FINDINGS: LUNG PARENCHYMA AND PLEURA: Lungs are mildly hyperinflated. There is small bullous changes within the upper lobes. Very mild bronchiectatic changes are present peripherally within the right lower lobe. Small band of reticular fibrosis or atelectasis is present within the posterior lateral right lower lobe. 3 mm indeterminate nodule right lower lobe, image 129 series 4. There is tree-in-bud infiltrate within the right lower lobe and minimally within the lingular segment. No other specific pulmonary findings. AIRWAY: The central airway is otherwise normal. MEDIASTINUM: No significant mediastinal lymphadenopathy. HEART: Prominent coronary calcifications. Mitral annular calcifications. No pericardial effusion. VASCULAR STRUCTURES: No thoracic aortic aneurysm. Main pulmonary artery caliber is normal. OSSEOUS STRUCTURES: There are no significant osseous abnormalities seen. VISUALIZED UPPER ABDOMEN: The visualized upper abdomen is within normal limits. And IVC filter is present. ESOPHAGUS: No gross abnormalities. IMPRESSION: Mildly hyperinflated lungs. Mild bullous and bronchiectatic changes. Correlate for underlying obstructive lung disease. Tree-in-bud infiltrate within the right lower lobe and lingular region. Endobronchial spread of infection would be likely consideration. 3 mm nodule in the right lower lobe can be followed by noncontrast CT in 12 months to ensure stability. SL: [id number] 01/27/2018 - - Read by: Hugh Hawkins MD Dictated Date/time: 01/27/18 12:26 Electronically Signed by: Hugh Hawkins MD 01/27/18 12:34 FINAL REPORT [facility] BLOOD BANK RESULTS ABO/Rh A POS 01/22/2018 [facility] BLOOD BANK RESULTS Antibody Scrn Negative (01/22/18 11:51 AM) 01/22/2018 [facility] CHEM PANEL Magnesium Lvl 1.7 mg/dL 1.8 - 2.4 01/22/2018 [facility] CHEM PANEL B/C Ratio 14 6 - 25 01/22/2018 [facility] CHEM PANEL AGAP 13.7 meq/L 10.0 - 20.0 01/22/2018 [facility] CHEM PANEL A/G Ratio 0.8 0.7 - 1.6 01/22/2018 [facility] CHEM PANEL Globulin 3.6 g/dL 2.7 - 4.2 01/22/2018 [facility] CHEM PANEL eGFR 27 mL/min/1.73m2 01/22/2018 Result Comment: The eGFR is calculated using the CKD-EPI formula. In most young, healthy individuals the eGFR will be >90 mL/min/1.73m2. The eGFR declines with age. An eGFR of 60-89 may be normal in some populations, particularly the elderly, for whom the CKD-EPI formula has not been extensively validated. Use of the eGFR is not recommended in the following populations: Individuals with unstable creatinine concentrations, including patients and those with serious co-morbid conditions. Patients with extremes in muscle mass or diet. The data above are obtained from the National Kidney Disease Education Program (NKDEP) which additionally recommends that when the eGFR is used in patients with extremes of body mass index for purposes of drug dosing, the eGFR should be multiplied by the estimated BMI. [facility] CHEM PANEL Calcium Lvl 9.1 mg/dL 8.5 - 10.5 01/22/2018 [facility] CHEM PANEL Potassium Lvl 3.7 meq/L 3.5 - 5.1 01/22/2018 [facility] CHEM PANEL Chloride Lvl 107 meq/L 95 - 109 01/22/2018 [facility] CHEM PANEL Sodium Lvl 143 meq/L 135 - 145 01/22/2018 [facility] CHEM PANEL CO2 26 meq/L 24 - 32 01/22/2018 [facility] CHEM PANEL BUN 25 mg/dL 7 - 22 01/22/2018 [facility] CHEM PANEL Glucose Lvl 115 mg/dL 70 - 99 01/22/2018 [facility] CHEM PANEL Creatinine Lvl 1.83 mg/dL 0.50 - 1.40 01/22/2018 [facility] CHEM PANEL Bili Total 0.6 mg/dL 0.2 - 1.3 01/22/2018 [facility] CHEM PANEL AST 19 unit/L 0 - 37 01/22/2018 [facility] CHEM PANEL Total Protein 6.6 g/dL 6.4 - 8.4 01/22/2018 [facility] CHEM PANEL Albumin Lvl 3.0 g/dL 3.5 - 5.0 01/22/2018 [facility] CHEM PANEL ALT 26 unit/L 0 - 65 01/22/2018 [facility] CHEM PANEL Alk Phos 84 unit/L 39 - 136 01/22/2018 [facility] HEMATOLOGY INR 0.98 0.85 - 1.17 01/22/2018 [facility] HEMATOLOGY PT 13.0 s 12.0 - 14.7 01/22/2018 [facility] HEMATOLOGY PTT 31.7 s 22.9 - 35.8 01/22/2018 [facility] HEMATOLOGY Hgb 11.5 g/dL 12.0 - 16.0 01/22/2018 [facility] HEMATOLOGY Hct 34.8 % 36.0 - 48.0 01/22/2018 [facility] HEMATOLOGY RBC 3.92 M/CMM 4.20 - 5.40 01/22/2018 [facility] HEMATOLOGY WBC 7.6 K/CMM 3.7 - 10.4 01/22/2018 [facility] HEMATOLOGY MPV 8.6 fL 7.4 - 10.4 01/22/2018 [facility] HEMATOLOGY Platelet 216 K/CMM 133 - 450 01/22/2018 [facility] HEMATOLOGY MCHC 33.2 g/dL 32.0 - 36.0 01/22/2018 [facility] HEMATOLOGY MCH 29.5 pg 27.0 - 31.0 01/22/2018 [facility] HEMATOLOGY MCV 88.7 fL 80.0 - 98.0 01/22/2018 [facility] HEMATOLOGY RDW 14.7 % 11.5 - 14.5 01/22/2018 [facility] HEMATOLOGY Segs-Bands # 5.8 K/CMM 1.5 - 8.1 01/22/2018 [facility] HEMATOLOGY Eosinophils 2.4 % 0.0 - 4.0 01/22/2018 [facility] HEMATOLOGY Basophils 0.9 % 0.0 - 1.0 01/22/2018 [facility] HEMATOLOGY Lymphocytes 13.0 % 20.0 - 40.0 01/22/2018 [facility] HEMATOLOGY Monocytes 7.4 % 2.0 - 12.0 01/22/2018 [facility] HEMATOLOGY Segs 76.3 % 45.0 - 75.0 01/22/2018 [facility] HEMATOLOGY Eosinophils # 0.2 K/CMM 0.0 - 0.5 01/22/2018 [facility] HEMATOLOGY Basophils # 0.1 K/CMM 0.0 - 0.2 01/22/2018 [facility] HEMATOLOGY Lymphocytes # 1.0 K/CMM 1.0 - 5.5 01/22/2018 [facility] HEMATOLOGY Monocytes # 0.6 K/CMM 0.0 - 0.8 01/22/2018 [facility] Brain/Neck CTA Brain/Neck CTA Brain/Neck CTA, and CT head without IV contrast, 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 0.625 mm thick axial images of the head and neck were obtained with IV contrast via arteriographic protocol, with subsequent 2 mm thick axial reconstructions. Coronal and sagittal reformations were created. Three- dimensional reconstructions of the intracranial and cervical arterial circulation were created at an independent workstation. FINDINGS: CT HEAD: Mild bilateral patchy hypoattenuating foci noted in the subcortical deep white matter of the centrum semiovale.. No acute intracranial hemorrhage is present. Ventricles, sulci, and cisterns are slightly prominent in size. No midline shift is present. Orbits are normal. Mild mucosal thickening is noted in the bilateral maxillary sinuses and sphenoid sinuses. Otherwise, remaining sinuses and air cells are clear. Calvarium is intact. CTA HEAD: Bilateral intracranial internal carotid artery segments are patent, with mild calcified plaque in the internal carotid artery siphons. Prominent focal calcified plaque is noted in a right MCA M2 M3 junction branch within the deep sylvian fissure, but with normal patent distal branch perfusion. [place] and its major branches are patent from their respective origins to their distal perfusional territories. Mild calcified plaque is present in the intracranial right vertebral artery and proximal basilar artery. Otherwise, vertebrobasilar system is patent. No aneurysm is present. Bilateral PI Gloria,AICAs, and SCAs are patent. Dural venous sinuses are patent. CTA NECK: Mild bilateral carotid bulb and proximal internal carotid artery calcified plaque formation is present, but creating less than 25% endoluminal stenosis. Bilateral vertebral arteries are patent. Aortic arch mild scattered calcified plaque is present. Thyroid gland is present. No abnormal mass, focal fluid collection, or lymphadenopathy is present. Pharyngeal soft tissues are normal. Salivary glands are normal. Bones demonstrate lower cervical spine spondylosis. Visualized upper lungs demonstrate mild centra acinar emphysematous changes and mild scattered right apical tree-in-bud airspace opacities. IMPRESSION: 1. CT head: No acute abnormality of the brain by CT. Mild chronic microangiopathic ischemic changes with diffuse volume loss. 2. CTA head: No significant abnormality. 3. CTA neck: Bilateral carotid bulb and proximal internal carotid artery mild calcified plaque formation, but without hemodynamically significant stenosis. NASCET criteria were utilized. SL: [id number] 11/18/2017 - - Read by: Ina Cortes MD Dictated Date/time: 11/18/17 12:21 Electronically Signed by: Ina Cortes MD 11/18/17 12:36 FINAL REPORT [facility] ELECTROLYTES AGAP 13.4 meq/L 10.0 - 20.0 11/18/2017 [facility] ELECTROLYTES eGFR 83 mL/min/1.73m2 11/18/2017 Result Comment: The eGFR is calculated using the CKD-EPI formula. In most young, healthy individuals the eGFR will be >90 mL/min/1.73m2. The eGFR declines with age. An eGFR of 60-89 may be normal in some populations, particularly the elderly, for whom the CKD-EPI formula has not been extensively validated. Use of the eGFR is not recommended in the following populations: Individuals with unstable creatinine concentrations, including patients and those with serious co-morbid conditions. Patients with extremes in muscle mass or diet. The data above are obtained from the National Kidney Disease Education Program (NKDEP) which additionally recommends that when the eGFR is used in patients with extremes of body mass index for purposes of drug dosing, the eGFR should be multiplied by the estimated BMI. [facility] ELECTROLYTES CO2 23 meq/L 24 - 32 11/18/2017 [facility] ELECTROLYTES Chloride Lvl 111 meq/L 95 - 109 11/18/2017 [facility] ELECTROLYTES Calcium Lvl 7.8 mg/dL 8.5 - 10.5 11/18/2017 [facility] ELECTROLYTES Sodium Lvl 143 meq/L 135 - 145 11/18/2017 [facility] ELECTROLYTES Creatinine Lvl 0.72 mg/dL 0.50 - 1.40 11/18/2017 [facility] ELECTROLYTES BUN 16 mg/dL 7 - 22 11/18/2017 [facility] ELECTROLYTES Glucose Lvl 144 mg/dL 70 - 99 11/18/2017 [facility] ELECTROLYTES Potassium Lvl 4.4 meq/L 3.5 - 5.1 11/18/2017 [facility] Monocytes # 0.2 K/CMM 0.0 - 0.8 11/18/2017 [facility] HEMATOLOGY Basophils 0.1 % 0.0 - 1.0 11/18/2017 [facility] HEMATOLOGY Segs-Bands # 8.3 K/CMM 1.5 - 8.1 11/18/2017 [facility] Lymphocytes # 0.8 K/CMM 1.0 - 5.5 11/18/2017 [facility] Segs 89.5 % 45.0 - 75.0 11/18/2017 [facility] Lymphocytes 8.5 % 20.0 - 40.0 11/18/2017 [facility] Monocytes 1.9 % 2.0 - 12.0 11/18/2017 [facility] MPV 9.8 fL 7.4 - 10.4 11/18/2017 [facility] RDW 13.4 % 11.5 - 14.5 11/18/2017 [facility] Platelet 165 K/CMM 133 - 450 11/18/2017 [facility] MCHC 33.4 g/dL 32.0 - 36.0 11/18/2017 [facility] Hct 34.1 % 36.0 - 48.0 11/18/2017 [facility] Hgb 11.4 g/dL 12.0 - 16.0 11/18/2017 [facility] MCH 29.8 pg 27.0 - 31.0 11/18/2017 [facility] MCV 89.4 fL 80.0 - 98.0 11/18/2017 [facility] RBC 3.81 M/CMM 4.20 - 5.40 11/18/2017 [facility] WBC 9.2 K/CMM 3.7 - 10.4 11/18/2017 [facility] URINE AND STOOL UA Urobilinogen <=1.0 mg/dL 0.1 - 1.0 11/18/2017 [facility] URINE AND STOOL UA Color Ltyellow 11/18/2017 [facility] URINE AND STOOL UA Mucus Few /LPF None Seen /LPF 11/18/2017 [facility] URINE AND STOOL UA Bacteria Occasional /HPF None Seen /HPF 11/18/2017 [facility] URINE AND STOOL UA RBC null 0 - 2 11/18/2017 [facility] URINE AND STOOL UA WBC null 0 - 5 11/18/2017 [facility] URINE AND STOOL UA Sq Epi Occasional /LPF Few /LPF 11/18/2017 [facility] URINE AND STOOL UA Leuk Est Negative (11/17/17 8:31 PM) Negative 11/18/2017 [facility] URINE AND STOOL UA Nitrite Negative (11/17/17 8:31 PM) Negative 11/18/2017 [facility] URINE AND STOOL UA Blood Negative (11/17/17 8:31 PM) Negative 11/18/2017 [facility] URINE AND STOOL UA Ketones Negative mg/dL Negative mg/dL 11/18/2017 [facility] URINE AND STOOL UA Bili Negative *NA* (11/17/17 8:31 PM) Negative 11/18/2017 [facility] URINE AND STOOL UA Glucose 50 mg/dL Negative mg/dL 11/18/2017 [facility] URINE AND STOOL UA Protein 100 mg/dL Negative mg/dL 11/18/2017 [facility] URINE AND STOOL UA Spec Grav 1.013 <=1.030 11/18/2017 [facility] URINE AND STOOL UA pH 6.0 5.0 - 8.0 11/18/2017 [facility] URINE AND STOOL UA Turbidity Clear (11/17/17 8:31 PM) Clear 11/18/2017 [facility] URINE CHEM U Creatinine 69.90 mg/dL 11/18/2017 [facility] URINE CHEM U Alb/Crea 693.8 mcg/mg creat <=30.0 mcg/mg creat 11/18/2017 [facility] URINE CHEM U Microalb 485.0 mg/L 11/18/2017 [facility] CHEM PANEL eGFR 84 mL/min/1.73m2 11/17/2017 Result Comment: The eGFR is calculated using the CKD-EPI formula. In most young, healthy individuals the eGFR will be >90 mL/min/1.73m2. The eGFR declines with age. An eGFR of 60-89 may be normal in some populations, particularly the elderly, for whom the CKD-EPI formula has not been extensively validated. Use of the eGFR is not recommended in the following populations: Individuals with unstable creatinine concentrations, including patients and those with serious co-morbid conditions. Patients with extremes in muscle mass or diet. The data above are obtained from the National Kidney Disease Education Program (NKDEP) which additionally recommends that when the eGFR is used in patients with extremes of body mass index for purposes of drug dosing, the eGFR should be multiplied by the estimated BMI. [facility] CHEM PANEL AGAP 12.3 meq/L 10.0 - 20.0 11/17/2017 [facility] CHEM PANEL CO2 24 meq/L 24 - 32 11/17/2017 [facility] CHEM PANEL Calcium Lvl 7.7 mg/dL 8.5 - 10.5 11/17/2017 [facility] CHEM PANEL Chloride Lvl 110 meq/L 95 - 109 11/17/2017 [facility] CHEM PANEL Potassium Lvl 4.3 meq/L 3.5 - 5.1 11/17/2017 [facility] CHEM PANEL Sodium Lvl 142 meq/L 135 - 145 11/17/2017 [facility] CHEM PANEL Creatinine Lvl 0.71 mg/dL 0.50 - 1.40 11/17/2017 [facility] CHEM PANEL BUN 15 mg/dL 7 - 22 11/17/2017 [facility] CHEM PANEL Glucose Lvl 136 mg/dL 70 - 99 11/17/2017 [facility] Carotid artery Doppler bilat US Carotid artery Doppler bilat US Patient Name: ROSALINDA PRATT : 1945; Age: 72 years y/o Female MR: [id number] CAROTID DOPPLER Clinical Indication: - SYNCOPAL EPISODES; Comparison: 04/27/2009 TECHNIQUE: Kirby-scale, color Doppler and spectral Doppler of the carotid arteries was performed. Any reported ICA stenoses indirectly reference the distal internal carotid diameter as the denominator for the stenosis measurement, utilizing consensus panel criteria. FINDINGS: * KIRBY SCALE AND COLOR-FLOW: There is extensive soft and calcific plaquing involving the right carotid bulb and proximal internal carotid artery. Velocity measurements demonstrate elevation of the peak systolic velocity indicating a significant stenosis. Please refer to the velocity measurements below. * There is moderate soft plaquing involving the left carotid bulb and proximal internal carotid arteries. There is also a velocity elevation within the left internal carotid artery which will be described below. * VELOCITY MEASUREMENTS RIGHT CAROTID SYSTEM : -Right internal carotid artery peak systolic velocity: Markedly elevated, 279 cm/sec -ICA/CCA ratio (systolic velocity ratio): Elevated, 2.47, The findings are consistent with a hemodynamically significant stenosis on the order of 50-70%. LEFT CAROTID SYSTEM : -Left internal carotid artery peak systolic velocity: Elevated, 187 cm/sec -ICA/CCA ratio (systolic velocity ratio): Within normal limits, 1.32 The elevated velocity would indicate a hemodynamically significant stenosis although the systolic velocity ratio is normal. It is likely there is a stenosis on the order of 40-50%. * VERTEBRAL ARTERIES: Both vertebral arteries were demonstrated. There is antegrade flow within both vertebral arteries. Overall, there is been significant progression in the disease from the study from 2008. IMPRESSION: 1. Extensive plaquing involving the right carotid bulb and proximal internal carotid artery with hemodynamically significant stenosis is estimated to be on the order of 50-70%. 2. There is velocity elevation within the left internal carotid artery. A borderline hemodynamically significant stenosis on the order of 40-50% is suspected. 3. If further anatomic evaluation is indicated, and the patient can tolerate contrast, CT angiography of the carotid arteries is suggested for confirmation and further evaluation. Consensus panel Doppler US criteria for diagnosis of ICA stenosis: Stenosis (%) ICA PSV (cm/sec) ICA/CCA ratio <50 <125 <2.0 50-69 125-230 2.0-4.0 >70 but less than >230 >4.0 near occlusion Near occlusion High, low, or Variable undetectable SL: [id number] 11/15/2017 - - Read by: Kike Chiang MD Dictated Date/time: 11/15/17 14:43 Electronically Signed by: Kike Chiang MD 11/15/17 14:48 FINAL REPORT [facility] CHEM PANEL Lactic Acid Lvl 1.4 mMol/L 0.5 - 2.2 11/15/2017 [facility] CHEM PANEL Procalcitonin Lvl 0.06 0.00 - 0.10 11/15/2017 [facility] ELECTROLYTES AGAP 16.0 meq/L 10.0 - 20.0 11/15/2017 [facility] ELECTROLYTES A/G Ratio 0.8 0.7 - 1.6 11/15/2017 [facility] ELECTROLYTES B/C Ratio 22 6 - 25 11/15/2017 [facility] ELECTROLYTES Globulin 3.8 g/dL 2.7 - 4.2 11/15/2017 [facility] ELECTROLYTES eGFR 34 mL/min/1.73m2 11/15/2017 Result Comment: The eGFR is calculated using the CKD-EPI formula. In most young, healthy individuals the eGFR will be >90 mL/min/1.73m2. The eGFR declines with age. An eGFR of 60-89 may be normal in some populations, particularly the elderly, for whom the CKD-EPI formula has not been extensively validated. Use of the eGFR is not recommended in the following populations: Individuals with unstable creatinine concentrations, including patients and those with serious co-morbid conditions. Patients with extremes in muscle mass or diet. The data above are obtained from the National Kidney Disease Education Program (NKDEP) which additionally recommends that when the eGFR is used in patients with extremes of body mass index for purposes of drug dosing, the eGFR should be multiplied by the estimated BMI. [facility] ELECTROLYTES Calcium Lvl 8.8 mg/dL 8.5 - 10.5 11/15/2017 [facility] ELECTROLYTES Albumin Lvl 3.2 g/dL 3.5 - 5.0 11/15/2017 [facility] ELECTROLYTES CO2 23 meq/L 24 - 32 11/15/2017 [facility] ELECTROLYTES Total Protein 7.0 g/dL 6.4 - 8.4 11/15/2017 [facility] ELECTROLYTES Alk Phos 93 unit/L 39 - 136 11/15/2017 [facility] ELECTROLYTES ALT 18 unit/L 0 - 65 11/15/2017 [facility] ELECTROLYTES Bili Total 0.7 mg/dL 0.2 - 1.3 11/15/2017 [facility] ELECTROLYTES AST 19 unit/L 0 - 37 11/15/2017 [facility] ELECTROLYTES Sodium Lvl 136 meq/L 135 - 145 11/15/2017 [facility] ELECTROLYTES Chloride Lvl 101 meq/L 95 - 109 11/15/2017 [facility] ELECTROLYTES Potassium Lvl 4.0 meq/L 3.5 - 5.1 11/15/2017 [facility] ELECTROLYTES Creatinine Lvl 1.50 mg/dL 0.50 - 1.40 11/15/2017 [facility] ELECTROLYTES Glucose Lvl 85 mg/dL 70 - 99 11/15/2017 [facility] ELECTROLYTES BUN 33 mg/dL 7 - 22 11/15/2017 [facility] HEMATOLOGY Hgb 14.3 g/dL 12.0 - 16.0 11/15/2017 [facility] HEMATOLOGY Hct 42.6 % 36.0 - 48.0 11/15/2017 [facility] RBC 4.71 M/CMM 4.20 - 5.40 11/15/2017 [facility] RDW 13.6 % 11.5 - 14.5 11/15/2017 [facility] Platelet 192 K/CMM 133 - 450 11/15/2017 [facility] WBC 8.4 K/CMM 3.7 - 10.4 11/15/2017 [facility] MCHC 33.5 g/dL 32.0 - 36.0 11/15/2017 [facility] MPV 9.1 fL 7.4 - 10.4 11/15/2017 [facility] MCV 90.4 fL 80.0 - 98.0 11/15/2017 [facility] MCH 30.2 pg 27.0 - 31.0 11/15/2017 [facility] Lymphocytes 8.7 % 20.0 - 40.0 11/15/2017 [facility] Segs 78.4 % 45.0 - 75.0 11/15/2017 [facility] Basophils 0.5 % 0.0 - 1.0 11/15/2017 [facility] Eosinophils 2.9 % 0.0 - 4.0 11/15/2017 [facility] Monocytes 9.5 % 2.0 - 12.0 11/15/2017 [facility] Monocytes # 0.8 K/CMM 0.0 - 0.8 11/15/2017 [facility] Lymphocytes # 0.7 K/CMM 1.0 - 5.5 11/15/2017 [facility] Eosinophils # 0.2 K/CMM 0.0 - 0.5 11/15/2017 [facility] Segs-Bands # 6.6 K/CMM 1.5 - 8.1 11/15/2017 [facility] C4 Complement 27 mg/dL 16 - 47 11/15/2017 [facility] C3 Complement 116 mg/dL 88 - 201 11/15/2017 [facility] Chest 1view DX Chest 1view DX Clinical Indication: - bronchitis/ pneumonia. Dyspnea, cough and failed outpatient treatment; Comparison: None FINDINGS: Single AP chest radiograph shows normal lung volumes without interstitial or airspace opacities, pleural effusions or pneumothorax. Apparent left apical curvilinear lucency extends beyond the rib cage and likely represents skinfold or other artifact. The heart size and pulmonary vasculature are normal. Thoracic aorta contains atherosclerotic calcifications. The trachea is midline. There are no clinically significant osseous abnormalities noted. IMPRESSION: No chest radiographic evidence of acute cardiopulmonary disease. SL: JOSE 11/14/2017 - - Read by: Enzo Sams MD Dictated Date/time: 11/14/17 20:18 Electronically Signed by: Enzo Sams MD 11/14/17 20:19 FINAL REPORT [facility] Bone Density Scan Bone Density Scan Study: Bone Density Scan Clinical Indication: - osteoporosis. Images of the axial lumbar spine and left hip have been performed using Hologic Discovery SL scanner. COMPARISON: 05/17/2011. FINDINGS: The left hip bone mineral density is 96% of the expected peak bone mass with a T-score of -0.3. Left hip BMD is 0.905 g/cm2. Femoral neck BMD is 0.940 g/cm2. There is a 8.3% bone mineral density change from previous which is statistically significant. The axial lumbar bone mineral density is 120% of the expected peak bone mass with a T-score 2.0. Axial lumbar average BMD is 1.298 g/cm2. There is a 12.0% bone mineral density change from previous which is statistically significant. IMPRESSION: 1. Normal bone mineral density of the left femoral neck. 2. Normal bone mineral density of the total left hip. 3. Normal bone mineral density of the lumbar spine. The World Health Organization has established that OSTEOPOROSIS occurs at -2.5 or more standard deviations (SD) below peak bone mass (T-score on the Hologic report). OSTEOPENIA (low bone mass) occurs at -1.0 standard deviations to -2.5 standard deviations below peak bone mass. SL: [id number] 07/31/2017 - - Read by: Kenn Hunter MD Dictated Date/time: 07/31/17 15:54 Electronically Signed by: Kenn Hunter MD 07/31/17 15:57 FINAL REPORT [facility] Spine thoracic 2 views DX Spine thoracic 2 views DX Study: 2 views of thoracic spine History: Back pain Comments: Normal bone mineralization. Normal curvature of the spine. Upper thoracic vertebra not visualized on the lateral view. No acute fracture or subluxation in the remaining spine Kyphoplasty changes in L1 vertebra Impression: Upper thoracic vertebra not visualized on the lateral view. No acute fracture or subluxation in the remaining spine 07/26/2017 - - Read by: Zulema Martines MD Dictated Date/time: 07/26/17 18:30 Electronically Signed by: Zulema Martines MD 07/26/17 18:32 FINAL REPORT [facility] Digital Mammo DX [place] Digital Mammo DX [place] - DIGITAL MAMMO DX [place] BILATERAL DIGITAL DIAGNOSTIC MAMMOGRAM WITH CAD: 08/15/2016 CLINICAL: Fibrocystic Disease h/o abnormal mammograms. Current study was evaluated with a Computer Aided Detection (CAD) system. Comparison is made to exams dated: 06/30/2015 mammogram, 06/11/2013 mammogram, 04/25/2012 mammogram, 03/22/2011 mammogram, 12/17/2008 mammogram and 02/16/2010 mammogram - [facility]. There are scattered fibroglandular densities in both breasts. There are benign vascular calcifications and calcifications in both breasts. There also is a benign density in the right breast. Additionally there is a benign intramammary node in the left breast. No significant masses, calcifications, or other findings are seen in either breast. There has been no significant interval change. IMPRESSION: BENIGN There is no mammographic evidence of malignancy. A 1 year screening mammogram is recommended. The results were reviewed with the patient. Boni orellana/penrad:08/15/2016 15:19:58 Pad Assembler: Tammy Ayala, [facility] This exam was dictated and interpreted by [id number] for [facility]. letter sent: Normal exam Mammogram BI-RADS: 2 Benign 08/15/2016 - - Read by: Boni Hooper MD Dictated Date/time: 08/15/16 15:19 Electronically Signed by: Boni Hooper MD 08/15/16 15:19 FINAL REPORT [facility] Digital Mammo Screening [place] Digital Mammo Screening [place] - DIGITAL MAMMO SCREENING [place] BILATERAL DIGITAL SCREENING MAMMOGRAM WITH CAD: 06/30/2015 CLINICAL: Routine. Current study was evaluated with a Computer Aided Detection (CAD) system. Comparison is made to exams dated: 06/11/2013 mammogram, 04/25/2012 mammogram, 03/22/2011 mammogram, 02/16/2010 mammogram, 12/17/2008 mammogram and 11/09/2007 mammogram - [facility]. Current study contains 4 films. There are scattered fibroglandular densities in both breasts. There are benign vascular calcifications and calcifications in both breasts. There also is a benign density in the right breast. Additionally there is a benign intramammary node in the left breast. No significant masses, calcifications, or other findings are seen in either breast. There has been no significant interval change. IMPRESSION: BENIGN There is no mammographic evidence of malignancy. A 1 year screening mammogram is recommended. Sawyer Jaquez sns/penrad:07/01/2015 09:16:08 Pad Assembler: Elina Lagos, [facility] This exam was dictated and interpreted by [id number] for [facility]. letter sent: Normal exam Mammogram BI-RADS: 2 Benign 06/30/2015 - - Read by: Sawyer Jaquez MD Dictated Date/time: 07/01/15 09:16 Electronically Signed by: Sawyer Jaquez MD 07/01/15 09:16 FINAL REPORT [facility] Chest 1view Chest 1view Examination: Chest x-ray, single view History: 461.9 Acute Sinusitis Comparison: 02/16/2010 Findings: Cardiac silhouette is normal in size. Aortic arch calcification is seen. Emphysematous changes of the lungs are again seen. No consolidation or congestion is seen. There is no pleural effusion or pneumothorax. The osseous structures are without focal abnormality. IMPRESSION: COPD without acute disease SL: 16 11/05/2014 - - Read by: Omar Orozco MD Dictated Date/time: 11/05/14 13:44 Electronically Signed by: Omar Orozco MD 11/05/14 13:44 FINAL REPORT [facility] Digital Mammo Screening [place] Digital Mammo Screening [place] - DIGITAL MAMMO SCREENING [place] BILATERAL DIGITAL SCREENING MAMMOGRAM WITH CAD: 06/11/2013 CLINICAL: Other Screening Mammogram. Current study was evaluated with a Computer Aided Detection (CAD) system. Comparison is made to exams dated: 04/25/2012 mammogram, 03/22/2011 mammogram, 02/16/2010 mammogram, 12/17/2008 mammogram, 11/09/2007 mammogram - [facility] and 06/19/2006 mammogram. There are scattered fibroglandular elements in both breasts that could obscure a lesion on mammography. There are benign vascular calcifications and calcifications in both breasts. There also is a benign density in the right breast. Additionally there is a benign intramammary node in the left breast. No significant masses, calcifications, or other findings are seen in either breast. There has been no significant interval change. IMPRESSION: BENIGN There is no mammographic evidence of malignancy. A screening mammogram in one year is recommended. SUMMARY: SL: Sherry. Boni orellana/penrad:06/12/2013 09:02:17 Pad Assembler: Tammy Ayala, [facility] letter sent: Normal exam Mammogram BI-RADS: 2 Benign 06/11/2013 - - Read by: Boni Hooper Dictated Date/time: 06/12/13 09:02 Electronically Signed by: Boni Hooper MD 06/12/13 09:02 FINAL REPORT [facility] Vital Signs Vital Sign Value Date Comments Source Weight 215 01/15/2019 [facility] Height 71 01/15/2019 [facility] Temperature Oral (F) 98.3 F 01/15/2019 [facility] Diastolic (mm Hg) 77 01/15/2019 [facility] Systolic (mm Hg) 155 01/15/2019 [facility] Weight 225 09/17/2018 [facility] Height 71 09/17/2018 [facility] Temperature Oral (F) 98.0 F 09/17/2018 [facility] Diastolic (mm Hg) 73 09/17/2018 [facility] Systolic (mm Hg) 142 09/17/2018 [facility] Systolic (mm Hg) 148 02/14/2018 [facility] Diastolic (mm Hg) 67 02/14/2018 [facility] Systolic (mm Hg) 148 02/13/2018 [facility] Diastolic (mm Hg) 67 02/13/2018 [facility] Systolic (mm Hg) 150 02/13/2018 [facility] Diastolic (mm Hg) 70 02/13/2018 [facility] BMI Calculated 27.39 02/13/2018 [facility] Weight 89.091 02/13/2018 [facility] Height 180.34 cm 02/13/2018 [facility] Weight 199 02/01/2018 [facility] Height 71 02/01/2018 [facility] Temperature Oral (F) 97.8 F 02/01/2018 [facility] Diastolic (mm Hg) 70 02/01/2018 [facility] Systolic (mm Hg) 136 02/01/2018 Enay[facility] Rahim Respitory Rate 18 01/22/2018 [facility] Systolic (mm Hg) 119 01/22/2018 [facility] Diastolic (mm Hg) 56 01/22/2018 [facility] Respitory Rate 18 01/22/2018 [facility] Systolic (mm Hg) 118 01/22/2018 [facility] Diastolic (mm Hg) 56 01/22/2018 [facility] Respitory Rate 18 01/22/2018 [facility] Systolic (mm Hg) 116 01/22/2018 [facility] Diastolic (mm Hg) 57 01/22/2018 [facility] Temperature Oral (F) 98.4 F 01/22/2018 [facility] BMI Calculated 26.97 01/22/2018 [facility] Weight 87.727 01/22/2018 [facility] Height 180.34 cm 01/22/2018 [facility] Weight 192 01/12/2018 [facility] Height 71 01/12/2018 [facility] Temperature Oral (F) 102.6 F 01/12/2018 [facility] Diastolic (mm Hg) 63 01/12/2018 [facility] Systolic (mm Hg) 125 01/12/2018 [facility] Weight 203 11/28/2017 [facility] Height 71 11/28/2017 [facility] Temperature Oral (F) 99.0 F 11/28/2017 [facility] Diastolic (mm Hg) 72 11/28/2017 [facility] Systolic (mm Hg) 137 11/28/2017 [facility] Rah[facility] Temperature Oral (F) 97.3 F 11/19/2017 [facility] Heart Rate 77 11/19/2017 [facility] Respitory Rate 18 11/19/2017 [facility] Systolic (mm Hg) 154 11/19/2017 [facility] Diastolic (mm Hg) 83 11/19/2017 [facility] Heart Rate 64 11/19/2017 [facility] Rate 16 11/19/2017 [facility] Temperature Oral (F) 97.8 F 11/19/2017 [facility] Systolic (mm Hg) 153 11/19/2017 [facility] Diastolic (mm Hg) 77 11/19/2017 [facility] Systolic (mm Hg) 157 11/19/2017 [facility] Diastolic (mm Hg) 82 11/19/2017 [facility] Temperature Oral (F) 97.4 F 11/19/2017 [facility] Heart Rate 70 11/19/2017 [facility] Respitory Rate 16 11/19/2017 [facility] Weight 93.636 11/15/2017 [facility] Height 180.34 cm 11/14/2017 [facility] BMI Calculated 28.37 11/14/2017 [facility] Weight 92.273 11/14/2017 [facility] Weight 204 11/14/2017 [facility] Height 71 11/14/2017 [facility] Temperature Oral (F) 98.7 F 11/14/2017 [facility] Diastolic (mm Hg) 62 11/14/2017 [facility] Systolic (mm Hg) 112 11/14/2017 [facility] Weight 210 11/06/2017 [facility] Rah[facility] Height 71 11/06/2017 [facility] Temperature Oral (F) 99.0 F 11/06/2017 [facility] Diastolic (mm Hg) 89 11/06/2017 [facility] Systolic (mm Hg) 164 11/06/2017 [facility] Weight 220 07/26/2017 Enayet Rahim Height 71 07/26/2017 Enayet Rahim Temperature Oral (F) 98.8 F 07/26/2017 Enayet Rahim Diastolic (mm Hg) 77 07/26/2017 Enayet Rahim Systolic (mm Hg) 153 07/26/2017 Enayet Rahim Weight 218 06/28/2017 Enayet Rahim Height 71 06/28/2017 Enayet Rahim Temperature Oral (F) 98.3 F 06/28/2017 Enayet Rahim Diastolic (mm Hg) 91 06/28/2017 Enayet Rahim Systolic (mm Hg) 174 06/28/2017 Enayet Rahim Weight 213 11/10/2016 Enayet Rahim Height 71 11/10/2016 Enayet Rahim Temperature Oral (F) 97.2 F 11/10/2016 Enayet Rahim Diastolic (mm Hg) 85 11/10/2016 Dennis Suarez Systolic (mm Hg) 164 11/10/2016 Dennis Suarez Encounters Location Location Details Encounter Type Encounter Number Reason For Visit Attending Provider ADM Date DC Date Status Source [facility] [id number] 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 Active [facility] Unknown [id number] 08/13/2014 08/13/2014 2.16.840.1.558445.4.391.11.99142 [facility] Unknown [id number] 08/13/2014 08/13/2014 Dennis Suarez [facility] Unknown [id number] 08/13/2014 08/13/2014 2.16.840.1.290628.4.391.11.89464 [facility] Unknown [id number] 08/13/2014 08/13/2014 2.16.840.1.708516.4.391.11.69656 [facility] Unknown [id number] 08/13/2014 08/13/2014 2.16.840.1.832924.4.391.11.17837 [facility] Unknown [id number] 08/13/2014 08/13/2014 2.16.840.1.301873.4.391.11.14845 [facility] Unknown [id number] 08/13/2014 08/13/2014 Dennis Suarez [facility] Unknown [id number] 08/13/2014 08/13/2014 Dennis Suarez [facility] Unknown [id number] 08/13/2014 08/13/2014 Dennis Suarez [facility] Unknown [id number] 09/02/2014 09/02/2014 2.16.840.1.088334.4.391.11.68428 [facility] Unknown [id number] 09/02/2014 09/02/2014 Dennis Suarez [facility] Unknown [id number] 09/02/2014 09/02/2014 2.16.840.1.554509.4.391.11.73214 [facility] Unknown [id number] 09/02/2014 09/02/2014 2.16.840.1.744453.4.391.11.92344 [facility] Unknown [id number] 09/02/2014 09/02/2014 2.16.840.1.148315.4.391.11.98418 [facility] Unknown [id number] 09/02/2014 09/02/2014 2.16.840.1.367582.4.391.11.84388 [facility] Unknown [id number] 09/02/2014 09/02/2014 2.16.840.1.973251.4.391.11.16077 [facility] Unknown [id number] 09/02/2014 09/02/2014 2.16.840.1.983100.4.391.11.75241 [facility] Unknown [id number] 09/02/2014 [facility]02/[facility] [id number] 09/02/2014 09/02/2014 Dennis Suarez [facility] Unknown [id number] 09/02/2014 09/02/2014 [facility] [id number] 10/15/2014 10/15/2014 2.16.840.1.089137.4.391.11.66043 [facility] Unknown [id number] 10/15/2014 10/15/2014 [facility] [id number] 10/15/2014 10/15/2014 2.16.840.1.277187.4.391.11.57448 [facility] Unknown [id number] 10/15/2014 10/15/2014 2.16.840.1.652058.4.391.11.90462 [facility] Unknown [id number] 10/15/2014 10/15/2014 2.16.840.1.708198.4.391.11.20550 [facility] Unknown [id number] 10/15/2014 10/15/2014 2.16.840.1.406339.4.391.11.35977 [facility] Unknown [id number] 10/15/2014 10/15/2014 2.16.840.1.291849.4.391.11.07004 [facility] Unknown [id number] 10/15/2014 10/15/2014 [facility] [id number] 10/15/2014 10/15/2014 [facility] Unknown [id number] 10/15/2014 10/15/2014 [facility] [id number] 11/01/2014 11/01/2014 2.16.840.1.713328.4.391.11.50950 [facility] New Refill Request [id number] 11/01/2014 11/01/2014 [facility] New Refill Request [id number] 11/01/2014 11/01/2014 2.16.840.1.474512.4.391.11.12222 [facility] New Refill Request [id number] 11/01/2014 11/01/2014 2.16.840.1.619166.4.391.11.62851 [facility] New Refill Request [id number] 11/01/2014 11/01/2014 2.16.840.1.881329.4.391.11.14140 [facility] New Refill Request [id number] 11/01/2014 11/01/2014 2.16.840.1.416036.4.391.11.62455 [facility] New Refill Request [id number] 11/01/2014 11/01/2014 [facility] New Refill Request [id number] 11/01/2014 11/01/2014 [facility] New Refill Request [id number] 11/01/2014 11/01/2014 [facility] sinus issues [id number] 11/05/2014 11/05/2014 [facility] sinus issues [id number] 11/05/2014 11/05/2014 2.16.840.1.977695.4.391.11.80984 [facility] sinus issues [id number] 11/05/2014 11/05/2014 2.16.840.1.600632.4.391.11.86880 [facility] sinus issues [id number] 11/05/2014 11/05/2014 2.16.840.1.873135.4.391.11.22703 [facility] sinus issues [id number] 11/05/2014 11/05/2014 2.16.840.1.435236.4.391.11.69219 [facility] sinus issues [id number] 11/05/2014 11/05/2014 [facility] [id number] 11/05/2014 11/05/2014 [facility] [id number] 11/05/2014 11/05/2014 [facility] Outpatient [id number] Jeanne Perera 11/05/2014 11/06/2014 [facility] New Refill Request [id number] 05/20/2015 05/20/2015 2.16.840.1.381518.4.391.11.10358 [facility] New Refill Request [id number] 05/20/2015 05/20/2015 [facility] Request [id number] 05/20/2015 05/20/2015 2.16.840.1.384395.4.391.11.71290 [facility] New Refill Request [id number] 05/20/2015 05/20/2015 2.16.840.1.886575.4.391.11.19020 [facility] New Refill Request [id number] 05/20/2015 05/20/2015 2.16.840.1.075364.4.391.11.12096 [facility] New Refill Request [id number] 05/20/2015 05/20/2015 2.16.840.1.654440.4.391.11.27722 [facility] New Refill Request [id number] 05/20/2015 05/20/2015 [facility] [id number] 05/20/2015 05/20/2015 [facility] New Refill Request [id number] 05/20/2015 05/20/2015 [facility] New Refill Request [id number] 06/19/2015 06/19/2015 [facility] [id number] 06/19/2015 06/19/2015 2.16.840.1.018015.4.391.11.76404 [facility] New Refill Request [id number] 06/19/2015 06/19/2015 2.16.840.1.587964.4.391.11.12014 [facility] New Refill Request [id number] 06/19/2015 06/19/2015 2.16.840.1.356767.4.391.11.96391 [facility] New Refill Request [id number] 06/19/2015 06/19/2015 2.16.840.1.656150.4.391.11.49249 [facility] New Refill Request [id number] 06/19/2015 06/19/2015 [facility] New Refill Request [id number] 06/19/2015 06/19/2015 [facility] New Refill Request [id number] 06/19/2015 06/19/2015 [facility] Unknown [id number] 06/29/2015 06/29/2015 [facility] Unknown [id number] 06/29/2015 06/29/2015 2.16.840.1.101032.4.391.11.78173 [facility] Unknown [id number] 06/29/2015 06/29/2015 2.16.840.1.587672.4.391..40795 [facility] Unknown [id number] 06/29/2015 06/29/2015 2.16.840.1.973068.4.391..61451 [facility] Unknown [id number] 06/29/2015 06/29/2015 2.16.840.1.749271.4.391..35986 [facility] Unknown [id number] 06/29/2015 06/29/2015 [facility] Unknown [id number] 06/29/2015 06/29/2015 [facility] Unknown [id number] 06/29/2015 06/29/2015 [facility] [id number] Christen Gileslyric 06/30/2015 07/01/2015 [facility] New Refill Request [id number] 08/14/2015 08/14/2015 [facility] New Refill Request [id number] 08/14/2015 08/14/2015 2.16.840.1.875466.4.391..63108 [facility] New Refill Request [id number] 08/14/2015 08/14/2015 2.16.840.1.746877.4.391..07269 [facility] New Refill Request [id number] 08/14/2015 08/14/2015 2.16.840.1.571542.4.391..24717 [facility] New Refill Request [id number] 08/14/2015 08/14/2015 2.16.840.1.552280.4.391..78834 [facility] New Refill Request [id number] 08/14/2015 08/14/2015 [facility] New Refill Request [id number] 08/14/2015 08/14/2015 [facility] New Refill Request [id number] 08/14/2015 08/14/2015 [facility] New Refill Request [id number] 11/24/2015 11/24/2015 [facility] New Refill Request [id number] 11/24/2015 11/24/2015 2.16.840.1.000256.4.391..60462 [facility] New Refill Request [id number] 11/24/2015 11/24/2015 2.16.840.1.522243.4.391..67871 [facility] New Refill Request [id number] 11/24/2015 11/24/2015 2.16.840.1.262599.4.391..38087 [facility] New Refill Request [id number] 11/24/2015 11/24/2015 [facility] New Refill Request [id number] 11/24/2015 11/24/2015 [facility] New Refill Request [id number] 11/24/2015 11/24/2015 [facility] New Refill Request [id number] 03/29/2016 03/29/2016 [facility] New Refill Request [id number] 03/29/2016 03/29/2016 2.16.840.1.491926.4.391.11.41677 [facility] New Refill Request [id number] 03/29/2016 03/29/2016 2.16.840.1.221661.4.391.11.59480 [facility] New Refill Request [id number] 03/29/2016 03/29/2016 [facility] New Refill Request [id number] 03/29/2016 03/29/2016 [facility] New Refill Request [id number] 03/29/2016 03/29/2016 [facility] New Refill Request [id number] 07/20/2016 07/20/2016 [facility] New Refill Request [id number] 07/20/2016 07/20/2016 2.16.840.1.079069.4.391.11.93650 [facility] New Refill Request [id number] 07/20/2016 07/20/2016 Dennis Suarez [facility] New Refill Request [id number] 07/20/2016 07/20/2016 Dennis Suarez [facility] New Refill Request [id number] 07/20/2016 07/20/2016 [facility] Unknown [id number] 08/03/2016 08/03/2016 [facility] Unknown [id number] 08/03/2016 08/03/2016 [facility] Unknown [id number] 08/03/2016 08/03/2016 [facility] Unknown [id number] 08/03/2016 08/03/2016 Dennis Suarez [facility] Outpatient [id number] Jeanne Perera 08/15/2016 08/16/2016 [facility] New Refill Request [id number] 09/04/2016 09/04/2016 [facility] New Refill Request [id number] 09/04/2016 09/04/2016 [facility] New Refill Request [id number] 09/04/2016 09/04/2016 [facility] New Refill Request [id number] 11/08/2016 11/08/2016 [facility] New Refill Request [id number] 11/08/2016 11/08/2016 [facility] [id number] 11/10/2016 11/10/2016 Dennis Suarez [facility] Outpatient [id number] Jeanne Perera 07/26/2017 07/27/2017 [facility] Outpatient [id number] Jeanne Perera 07/31/2017 08/01/2017 [facility] Inpatient [id number] [facility] [place] 11/14/2017 11/19/2017 [facility] Bed[facility] Outpatient [id number] Ibrahima Alvarado 01/22/2018 01/22/2018 [facility] Outpatient [id number] Juventino Shaffer 01/27/2018 01/28/2018 [facility] Bedded Outpatient [id number] Omega Escalera 02/13/2018 02/14/[address] [facility] Outpatient [id number] SCREENING CHRISTEN Avery [facility] Procedures Procedure Code Date Perfomer Comments Source
--- OUTSIDE RECORDS SUMMARY | 2019-02-05 08:57 | XMS REPORT | Summary of Care ---
Author Author [facility] Organization [facility] Address Unknown Phone Unavailable Encounter KRAIG Rose(MYRTLE) [id number] Date(s): 01/22/18 - 01/22/18 [facility] [address] [employer] provided by [facility] [place] [address]- Discharge Disposition: Home or Self Care Attending Physician: Ibrahima Serrano MD Referring Physician: Ibrahima Serrano MD Vital Signs 1 2 3 Most recent to oldest [Reference Range]: 180.34 cm (01/22/18 11:50 AM) Height 98.4 DegF (01/22/18 12:15 PM) Temperature Oral [96.4-99.1 DegF] 119/56 mmHg (01/22/18 5:00 PM) 118/56 mmHg (01/22/18 4:45 PM) 116/57 mmHg (01/22/18 4:30 PM) Blood Pressure [90-140/60-90 mmHg] 18 BRMIN (01/22/18 5:00 PM) 18 BRMIN (01/22/18 4:45 PM) 18 BRMIN (01/22/18 4:30 PM) Respiratory Rate [14-20 BRMIN] 87.727 kg (01/22/18 11:50 AM) Weight 26.97 m2 (01/22/18 11:50 AM) Body Mass Index Problem List Condition Effective Dates Status Health Status Informant Abdominal Active hysterectomy(Confirm ed) Appendectomy(Confirm Active ed) ARF - Acute renal < 10/12/10 Resolved failure(Confirmed) Degenerative joint Active disease(Confirmed) GERD - Active Gastro-esophageal reflux disease(Confirmed) HTN - Active Hypertension(Confirm ed) Hypothyroidism1 Active Knee Active replacement(Confirme d) 1Data migrated from [facility] on 03/03/15. Allergies, Adverse Reactions, Alerts Substance Reaction Severity Status sulfa drugs1 Active codeine Active Vicodin Active Celebrex Active Albuterol Sulfate Active 1Data migrated from [facility] on 04/30/15. Originally documented as SULFA. Dermatological problems, e.g., rash, hives Medications AMIODarone 200 mg, 1 tab, Route: PO, Drug form: TAB, BID, Dosing Weight 87.727, kg, Start d ate: 01/22/18 17:00:00 CDT, Duration: 30 day, Stop date: 02/21/18 9:00:00 CDT Notes: (Same as: Cordarone) Start Date: 01/22/18 Stop Date: 01/23/18 Status: Discontinued AMIODarone 200 mg oral tablet 200 mg=1 tab, PO, BID, # 180 tab, 0 Refill(s) Start Date: 01/22/18 Status: Ordered amLODIPine 5 mg, 1 tab, Route: PO, Drug form: TAB, Daily, Dosing Weight 87.727, kg, PRN Hyp ertension, Start date: 01/22/18 15:14:00 CDT, Duration: 30 day, Stop date: 02/21 15:13:00 CDT Notes: (Same as: Norvasc) Start Date: 01/22/18 Stop Date: 01/23/18 Status: Discontinued amLODIPine 5 mg, PO, Daily, PRN Hypertension, 0 Refill(s) Start Date: 01/22/18 Status: Ordered aspirin 81 mg tablet, enteric coated 81 mg, 1 tab, Route: PO, Drug form: ECTAB, Bedtime, Dosing Weight 87.727, kg, St art date: 01/22/18 21:00:00 CDT, Duration: 30 day, Stop date: 02/20/18 21:00:00 CDT Notes: Do not crush or chew.(Same As: Ecotrin) Start Date: 01/22/18 Stop Date: 01/23/18 Status: Discontinued aspirin 81 mg tablet, enteric coated 81 mg=1 tab, PO, Bedtime, # 90 tab, 3 Refill(s) Start Date: 01/22/18 Status: Ordered atorvastatin 80 mg, 1 tab, Route: PO, Drug form: TAB, Bedtime, Dosing Weight 87.727, kg, Star t date: 01/22/18 21:00:00 CDT, Duration: 30 day, Stop date: 02/20/18 21:00:00 CD T Notes: Same as Lipitor Start Date: 01/22/18 Stop Date: 01/23/18 Status: Discontinued atorvastatin 80 mg oral tablet 80 mg=1 tab, PO, Bedtime, # 90 tab, 0 Refill(s) Start Date: 01/22/18 Status: Ordered metoprolol 50 mg oral tablet, extended release 50 mg=1 tab, PO, Daily, # 30 tab, 0 Refill(s) Start Date: 01/22/18 Status: Ordered mycophenolate mofetil 1,000 mg, 2 tab, Route: PO, Drug form: TAB, [id number], Dosing Weight 87.727, kg, S tart date: 01/22/18 20:00:00 CDT, Duration: 30 day, Stop date: 02/21/18 8:00:00 CDT Notes: SEPARATE ANTACIDS from [employer] by 2 hrs.(Same As: CellCept) Start Date: 01/22/18 Stop Date: 01/23/18 Status: Discontinued normal saline 0.9% IV 1,000 mL 1,000 mL, Rate: 100 ml/hr, Infuse over: 10 hr, Route: IV, Dosing Weight 87.727 k g, Total Volume: 1,000, Start date: 01/22/18 15:15:00 CDT, Duration: 30 day, Sto p date: 02/21/18 15:14:00 CDT, 2.11, m2 Start Date: 01/22/18 Stop Date: 01/23/18 Status: Discontinued Results BLOOD BANK RESULTS Most recent to 1 oldest [Reference Range]: ABO/Rh A POS *Unknown* (01/22/18 11:51 AM) Antibody Scrn Negative (01/22/18 11:51 AM) ELECTROLYTES Most recent to 1 oldest [Reference Range]: Sodium Lvl [135-145 143 mEq/L mEq/L] (01/22/18 11:51 AM) Potassium Lvl 3.7 mEq/L [3.5-5.1 mEq/L] (01/22/18 11:51 AM) Chloride Lvl [95-109 107 mEq/L mEq/L] (01/22/18 11:51 AM) CO2 [24-32 mEq/L] 26 mEq/L (01/22/18 11:51 AM) AGAP [10.0-20.0 13.7 mEq/L mEq/L] (01/22/18 11:51 AM) CHEM PANEL Most recent to 1 oldest [Reference Range]: Creatinine Lvl 1.83 mg/dL [0.50-1.40 mg/dL] *HI* (01/22/18 11:51 AM) eGFR 27 mL/min/1.73m2 1 *NA* (01/22/18 11:51 AM) BUN [7-22 mg/dL] 25 mg/dL *HI* (01/22/18 11:51 AM) B/C Ratio [6-25] 14 (01/22/18 11:51 AM) Glucose Lvl [70-99 115 mg/dL mg/dL] *HI* (01/22/18 11:51 AM) Total Protein 6.6 g/dL [6.4-8.4 g/dL] (01/22/18 11:51 AM) Albumin Lvl [3.5-5.0 3.0 g/dL g/dL] *LOW* (01/22/18 11:51 AM) Globulin [2.7-4.2 3.6 g/dL g/dL] (01/22/18 11:51 AM) A/G Ratio [0.7-1.6] 0.8 (01/22/18 11:51 AM) Calcium Lvl 9.1 mg/dL [8.5-10.5 mg/dL] (01/22/18 11:51 AM) Magnesium Lvl 1.7 mg/dL [1.8-2.4 mg/dL] *LOW* (01/22/18 11:51 AM) ALT [0-65 unit/L] 26 unit/L (01/22/18 11:51 AM) AST [0-37 unit/L] 19 unit/L (01/22/18 11:51 AM) Alk Phos [39-136 84 unit/L unit/L] (01/22/18 11:51 AM) Bili Total [0.2-1.3 0.6 mg/dL mg/dL] (01/22/18 11:51 AM) 1Result Comment: The eGFR is calculated using the [...] from the National Kidney Disease Education Program ( NKDEP) which additionally recommends that when the eGFR is used in patients with extremes of body mass index for purposes of drug dosing, the eGFR should be mul tiplied by the estimated BMI. HEMATOLOGY Most recent to 1 oldest [Reference Range]: WBC [3.7-10.4 K/CMM] 7.6 K/CMM (01/22/18 11:51 AM) RBC [4.20-5.40 3.92 M/CMM M/CMM] *LOW* (01/22/18 11:51 AM) Hgb [12.0-16.0 g/dL] 11.5 g/dL *LOW* (01/22/18 11:51 AM) Hct [36.0-48.0 %] 34.8 % *LOW* (01/22/18 11:51 AM) MCV [80.0-98.0 fL] 88.7 fL (01/22/18 11:51 AM) MCH [27.0-31.0 pg] 29.5 pg (01/22/18 11:51 AM) MCHC [32.0-36.0 33.2 g/dL g/dL] (01/22/18 11:51 AM) RDW [11.5-14.5 %] 14.7 % *HI* (01/22/18 11:51 AM) MPV [7.4-10.4 fL] 8.6 fL (01/22/18 11:51 AM) Platelet [133-450 216 K/CMM K/CMM] (01/22/18 11:51 AM) Segs [45.0-75.0 %] 76.3 % *HI* (01/22/18 11:51 AM) Lymphocytes 13.0 % [20.0-40.0 %] *LOW* (01/22/18 11:51 AM) Monocytes [2.0-12.0 7.4 % %] (01/22/18 11:51 AM) Eosinophils [0.0-4.0 2.4 % %] (01/22/18 11:51 AM) Basophils [0.0-1.0 0.9 % %] (01/22/18 11:51 AM) Segs-Bands # 5.8 K/CMM [1.5-8.1 K/CMM] (01/22/18 11:51 AM) Lymphocytes # 1.0 K/CMM [1.0-5.5 K/CMM] (01/22/18 11:51 AM) Monocytes # [0.0-0.8 0.6 K/CMM K/CMM] (01/22/18 11:51 AM) Eosinophils # 0.2 K/CMM [0.0-0.5 K/CMM] (01/22/18 11:51 AM) Basophils # [0.0-0.2 0.1 K/CMM K/CMM] (01/22/18 11:51 AM) PT [12.0-14.7 13.0 seconds seconds] (01/22/18 11:51 AM) INR [0.85-1.17] 0.98 (01/22/18 11:51 AM) PTT [22.9-35.8 31.7 seconds seconds] (01/22/18 11:51 AM) Immunizations Given and Recorded Vaccine Date Status Refusal Reason pneumococcal 13-valent vaccine 11/15/17 Given influenza virus vaccine, inactivated 11/15/17 Given influenza virus vaccine, inactivated 10/14/10 Given influenza virus vaccine, inactivated 10/24/08 Given pneumococcal 23-valent vaccine 10/24/08 Given Procedures No data available for this section Social History Social History Type Response Substance Abuse Use: None. Alcohol Current, Type Beer, Wine, Liquor. Frequency: 1-2 times per week. Previous treatment: None. Alcohol use interferes with work or home: No. Drinks more than intended: No. Others hurt by drinking: No. Ready to change: No. Household alcohol concerns: No. Smoking Status Former smoker; Type: Cigarettes; Previous treatment: None; Ready to change: Yes; Concerns about tobacco use in household: No; Exposure to Tobacco Smoke None; Cigarette Smoking Last 365 Days No; Reg Smoking Cessation Counseling No entered on: 01/22/18 Assessment and Plan No data available for this section
--- OUTSIDE RECORDS SUMMARY | 2019-02-05 08:57 | XMS REPORT | Summary of Care ---
Author Author [facility] Organization [facility] Address Unknown Phone Unavailable Encounter KRAIG Rose(MYRTLE) [id number] Date(s): 01/27/18 - 01/27/18 [facility] [address] [place] [address]- [phone] Discharge Disposition: Home or Self Care Attending Physician: Juventino Shaffer MD Referring Physician: Juventino Shaffer MD Vital Signs No data available for this section Problem List Condition Effective Dates Status Health Status Informant Abdominal Active hysterectomy(Confirm ed) Appendectomy(Confirm Active ed) ARF - Acute renal < 10/12/10 Resolved failure(Confirmed) Degenerative joint Active disease(Confirmed) GERD - Active Gastro-esophageal reflux disease(Confirmed) HTN - Active Hypertension(Confirm ed) Hypothyroidism1 Active Knee Active replacement(Confirme d) 1Data migrated from [employer] on 03/03/15. Allergies, Adverse Reactions, Alerts Substance Reaction Severity Status sulfa drugs1 Active codeine Active Vicodin Active Celebrex Active Albuterol Sulfate Active 1Data migrated from [facility] [employer] on 04/30/15. Originally documented as SULFA. Dermatological problems, e.g., rash, hives Medications No data available for this section Results No data available for this section Immunizations Given and Recorded Vaccine Date Status [...]
--- OUTSIDE RECORDS SUMMARY | 2019-02-05 08:57 | XMS REPORT | Summary of Care ---
Author Author [facility] Organization [facility] Address Unknown Phone Unavailable Encounter HQ Gladys_john(FIN) [id number] Date(s): 07/31/17 - 07/31/17 [facility] [address] [place] [address]- [phone] Discharge Disposition: Home or Self Care Attending Physician: Jeanne Perera MD Referring Physician: Jeanne Perera MD Vital Signs No data available for this section Problem List Condition Effective Dates Status Health Status Informant Abdominal Active hysterectomy(Confirm ed) Appendectomy(Confirm Active ed) ARF - Acute renal < 10/12/10 Resolved failure(Confirmed) Degenerative joint Active disease(Confirmed) GERD - Active Gastro-esophageal reflux disease(Confirmed) HTN - Active Hypertension(Confirm ed) Hypothyroidism1 Active Knee Active replacement(Confirme d) 1Data migrated from [employer] on 03/03/15. Allergies, Adverse Reactions, Alerts Substance Reaction Severity Status Celebrex Active codeine Active sulfa drugs1 Active Vicodin Active 1Data migrated from [employer] on 04/30/15. Originally documented as SULFA. Dermatological problems, e.g., rash, hives Medications No data available for this section Results No data available for this section Immunizations Given and Recorded Vaccine Date Status Refusal Reason influenza virus vaccine, inactivated 10/14/10 Given influenza virus vaccine, inactivated 10/24/08 Given pneumococcal 23-valent vaccine 10/24/08 Given Procedures No data available for this section Social History Social History Type Response Assessment and Plan No data available for this section
--- OUTSIDE RECORDS SUMMARY | 2019-02-05 08:57 | XMS REPORT | Summary of Care ---
Author Author [facility] Organization [facility] Address Unknown Phone Unavailable Encounter HQ Gladys_john(FIN) [id number] Date(s): 07/26/17 - 07/26/17 [facility] [address] [place] [address]- Discharge Disposition: Home or Self Care Attending Physician: Jeanne Perera MD Vital Signs No data available for this section Problem List Condition Effective Dates Status Health Status Informant Abdominal Active hysterectomy(Confirm ed) Appendectomy(Confirm Active ed) ARF - Acute renal < 10/12/10 Resolved failure(Confirmed) Degenerative joint Active disease(Confirmed) GERD - Active Gastro-esophageal reflux disease(Confirmed) HTN - Active Hypertension(Confirm ed) Hypothyroidism1 Active Knee Active replacement(Confirme d) 1Data migrated from [facility] [employer] on 03/03/15. Allergies, Adverse Reactions, Alerts Substance [...]
--- OUTSIDE RECORDS SUMMARY | 2019-02-05 08:58 | XMS REPORT ---
Author Author Jeanne Perera Organization [employer] Address Unknown Phone Unavailable Care Team Providers Care Associate Store Leader Name Role Phone Jeanne Perera CP Unavailable Allergies, Adverse Reactions, Alerts Substance Reaction Event Type codeine Info Not Available Drug Allergy sulfa Info Not Available Drug Allergy Vicodin Info Not Available Drug Allergy Problems Problem Type Condition Code Onset Dates Condition Status Assessment Lumbar spine painful on movement M54.5 Active Problem Pure hypercholesterolemia E78.00 Active Problem Chronic kidney disease (CKD), stage III (moderate) N18.3 Active Assessment Thoracic spine pain M54.6 Active Assessment Pain of lumbar spine M54.5 Active Problem Other chronic pain G89.29 Active Problem Difficulty walking R26.2 Active Problem Acquired hypothyroidism E03.9 Active Problem Patient had no falls in past year Z78.9 Active Problem Screening for osteoporosis Z13.820 Active Problem Essential hypertension I10 Active Problem Breast cancer screening Z12.39 Active Medications Medication Code System Code Instructions Start Date End Date Status Dosage LamISIL AT [facility] [address]-96 1 % Externally Twice a day Jun 28, 2017 December 25, 2017 Active 1 drop to affected area Losartan Potassium ND 04700823192 100 MG Orally Once a day Active 1 tablet Atorvastatin Calcium ND 53579915342 80 MG Orally Once a day Active 1 tablet Amlodipine Besylate ND 34056592956 10 MG Orally Once a day Active 1 tablet Benazepril HCl [facility] 19122888777 40 MG by mouth daily Active 1 tablet once a day orally 90 days Baby Aspirin NDC 0 Active not defined Vagifem [facility] 16375393351 10 MCG Vaginal Active 1 tablet G67-Brwynx [facility] 04976071025 1 MG Orally Active not defined Multi Vitamin Daily ND 18045301579 Orally Once a day Active 1 tablet Metoprolol Succinate ER ND 05286259644 50 MG Orally Once a day Active 1 tablet Levothyroxine Sodium ND 35290758749 150 MCG orally daily Active 1 TABLET ONCE A DAY ORALLY 90 DAYS Mycophenolate Mofetil [facility] 17088863174 500 MG Orally Twice a day Active 2 tablets Vital Signs Date/Time: Jul 26, 2017 BMI 30.68 Index Weight 220 lbs Height 71 in Temperature 98.8 F Blood Pressure Diastolic 77 mm Hg Blood Pressure Systolic 153 mm Hg Results No Known Results Summary Purpose [employer] Submission
--- OUTSIDE RECORDS SUMMARY | 2019-02-05 08:58 | XMS REPORT | Summary of Care ---
Author Author [facility] Organization [facility] Address Unknown Phone Unavailable Encounter HQ Rose(MYRTLE) [id number] Date(s): 06/30/15 - 06/30/15 [facility] [address] [place] [address]- Discharge Disposition: Home Attending Physician: Christen Johnson MD Referring Physician: Christen Johnson MD Vital Signs No data available for this section Problem List Condition Effective Dates Status Health Status Informant Abdominal Active hysterectomy(Confirm ed) Appendectomy(Confirm Active ed) ARF - Acute renal < 10/12/10 Resolved failure(Confirmed) Degenerative joint Active disease(Confirmed) GERD - Active Gastro-esophageal reflux disease(Confirmed) HTN - Active Hypertension(Confirm ed) Hypothyroidism1 Active Knee Active replacement(Confirme d) 1Data migrated from [facility] [employer] on 03/03/15. Allergies, Adverse Reactions, Alerts Substance Reaction Severity Status Celebrex Active codeine Active sulfa drugs1 Active Vicodin Active 1Data migrated from [facility] [employer] on 04/30/15. Originally documented as SULFA. Dermatological problems, e.g., rash, hives Medications No data available for this section Results No data available for this section Immunizations Vaccine Date Refusal Reason influenza virus vaccine, inactivated 10/14/10 influenza virus vaccine, inactivated 10/24/08 pneumococcal 23-valent vaccine 10/24/08 Procedures No data available for this section Social History Social History Type Response Assessment and Plan No data available for this section
--- OUTSIDE RECORDS SUMMARY | 2019-02-05 08:58 | XMS REPORT | CCD ---
Author Author [facility] Organization [facility] Address Unknown Phone Unavailable Care Team Providers Care Psychologist Private Practice Name Role Phone Dion Shaffer RP Allergies, Adverse Reactions, Alerts Substance Reaction Status Celebrex Active codeine Active sulfa drugs Active Vicodin Active Problem List Condition Effective Dates Status Abdominal hysterectomy Active Appendectomy Active ARF - Acute renal failure < 10/12/2010 Resolved Degenerative joint disease Active GERD - Gastro-esophageal reflux disease Active HTN - Hypertension Active Knee replacement Active Medications Medication Instructions Start Date End Date Status pneumococcal 0.5 ml, Route: IM, Drug Form: INJ, 10/22/2008 10/24/2008 Completed 23-valent vaccine ONCALL, Start date: 10/22/08 23:30:45, Stop date: 11/21/08 23:15:45 influenza virus 0.5 ml, Route: IM, Drug Form: INJ, 10/22/2008 10/24/2008 Completed vaccine, inactivated ONCALL, Start date: 10/22/08 23:30:44, Stop date: 11/21/08 23:15:44 influenza virus 0.5 ml, Route: IM, Drug Form: INJ, 10/11/2010 10/14/2010 Completed vaccine, inactivated ONCALL, Start date: 10/11/10 15:00:00, Duration: 1 doses or times Immunizations Vaccine Date Status influenza virus vaccine, inactivated 10/24/2008 Auth (Verified) influenza virus vaccine, inactivated 10/14/2010 Auth (Verified) pneumococcal 23-valent vaccine 10/24/2008 Auth (Verified)
--- OUTSIDE RECORDS SUMMARY | 2019-02-05 08:58 | XMS REPORT | Summary of Care ---
Author Organization Unknown Address Unknown Phone Unavailable Encounter KRAIG Rose(MYRTLE) [id number] Date(s): 11/05/14 - 11/05/14 [facility] [address] Discharge Disposition: Home Physician Attending: Jeanne Perera MD Physician Admitting: Jeanne Perera MD Reason for Visit 461.9 Problem List Condition Effective Dates Status Health Status Informant Abdominal Active hysterectomy(Confirm ed) Appendectomy(Confirm Active ed) ARF - Acute renal < 10/12/10 Resolved failure(Confirmed) Degenerative joint Active disease(Confirmed) GERD - Active Gastro-esophageal reflux disease(Confirmed) HTN - Active Hypertension(Confirm ed) Knee Active replacement(Confirme d) Allergies, Adverse Reactions, Alerts Substance Reaction Severity Status Celebrex Active codeine Active sulfa drugs Active Vicodin Active Medications No data available for this section Medications Administered During Your Visit No data available for this section Immunizations Vaccine Date Refusal Reason influenza virus vaccine, inactivated 10/14/10 influenza virus vaccine, inactivated 10/24/08 pneumococcal 23-valent vaccine 10/24/08 Social History Social History Type Response
--- OUTSIDE RECORDS SUMMARY | 2019-02-05 08:58 | XMS REPORT ---
Author Author Jeanne Perera Organization [employer] Address Unknown Phone Unavailable Care Team Providers Care Semiconductor Engineer Name Role Phone Jeanne Perera CP Unavailable Allergies No Known Allergies Problems Problem Type Condition Code Onset Dates Condition Status Problem Dysphagia 787.20 Active Problem HTN (hypertension) 401.9 Active Problem Hypothyroidism 244.9 Active Problem CKD (chronic kidney disease) 585.9 Active Problem Motion sickness 994.6 Active Problem HLD (hyperlipidemia) 272.4 Active Problem GERD (gastroesophageal reflux disease) 530.81 Active Medications No Known Medications Results No Known Results Summary Purpose [employer] Submission
--- OUTSIDE RECORDS SUMMARY | 2019-02-05 08:58 | XMS REPORT | Summary of Care ---
Author Author [facility] Organization [facility] Address Unknown Phone Unavailable Encounter KRAIG Rose(MYRTLE) [id number] Date(s): 01/27/18 - 01/27/18 [facility] [address] [place] [address]- Discharge Disposition: Home or Self Care Attending [...] Active replacement(Confirme d) 1Data migrated from [employer] on 03/03/15. Allergies, Adverse Reactions, Alerts Substance Reaction Severity Status sulfa drugs1 Active codeine Active Vicodin Active Celebrex Active Albuterol Sulfate Active 1Data migrated from [employer] on 04/30/15. Originally documented as SULFA. Dermatological [...]
--- OUTSIDE RECORDS SUMMARY | 2019-02-05 08:58 | XMS REPORT ---
Author Author Jeanne Perera Organization [employer] Address Unknown Phone Unavailable Care Team Providers Care Support Director Name Role Phone Jeanne Perera CP Unavailable Allergies, Adverse Reactions, Alerts Substance Reaction Event Type codeine Info Not Available Drug Allergy sulfa Info Not Available Drug Allergy Vicodin Info Not Available Drug Allergy Problems Problem Type Condition Code Onset Dates Condition Status Assessment SOB (shortness of breath) R06.02 Active Problem Pure hypercholesterolemia E78.00 Active Problem Chronic kidney disease (CKD), stage III (moderate) N18.3 Active Assessment Acute bronchitis, unspecified organism J20.9 Active Problem Other chronic pain G89.29 Active Problem Difficulty walking R26.2 Active Problem Acquired hypothyroidism E03.9 Active Problem Patient had no falls in past year Z78.9 Active Problem Screening for osteoporosis Z13.820 Active Problem Essential hypertension I10 Active Problem Breast cancer screening Z12.39 Active Medications Medication Code System Code Instructions Start Date End Date Status Dosage Atrovent HFA [facility] 19099742053 17 MCG/ACT Inhalation Four times a day as needed Nov 28, 2017 January 27, 2018 Active 2 puffs Fexofenadine HCl [facility] 67986899349 60 MG Orally Twice a day Nov 28, 2017 January 27, 2018 Active 1 tablet as needed Medrol [facility] 70244860819 4 MG Orally as directed Nov 06, 2017 Active as directed Levothyroxine Sodium [facility] 04642830434 150 MCG orally daily Active 1 TABLET ONCE A DAY ORALLY 90 DAYS Amlodipine Besylate [facility] 14577175706 10 MG Orally Once a day as needed Active 1/2 tablet Baby Aspirin ND 0 Active not defined Fluticasone Propionate [facility] 32946793429 50 MCG/ACT Nasally Once a day Nov 28, 2017 Active 1 spray in each nostril Albuterol Sulfate HFA [facility] [address]-86 108 (90 Base) MCG/ACT Inhalation twice a day as needed Nov 06, 2017 Active 2 puffs as needed LamISIL AT [place] [facility] [address]-16 1 % Externally Twice a day Jun 28, 2017 December 25, 2017 Active 1 drop to affected area Atorvastatin Calcium [facility] 96178948100 80 MG Orally at bedtime Active 1/2 tablet R76-[id number] [facility] 58253375742 1 MG Orally Active not defined Multi Vitamin Daily [facility] 91362352458 Orally Once a day Active 1 tablet Mycophenolate Mofetil [facility] 21597755157 500 MG Orally Active 2 tablets in the morning and 1 tablet at night time Benazepril HCl [facility] 72980768106 40 MG by mouth daily Active 1 tablet once a day orally 90 days Benzonatate [facility] 33122548153 200 MG Orally Three times a day Active 1 capsule Vagifem [facility] 27362050256 10 MCG Vaginal Active 1 tablet Metoprolol Succinate ER [facility] 46877166105 50 MG Orally Twice a day Active 1/2 tablet Losartan Potassium [facility] 19584808605 100 MG Orally Once a day Active 1 tablet Vital Signs Date/Time: Nov 28, 2017 BMI 28.31 Index Weight 203 lbs Height 71 in Temperature 99.0 F Blood Pressure Diastolic 72 mm Hg Blood Pressure Systolic 137 mm Hg Results No Known Results Summary Purpose [employer] Submission
--- OUTSIDE RECORDS SUMMARY | 2019-02-05 08:58 | XMS REPORT ---
Author Author Jeanne Perera Organization [employer] Address Unknown Phone Unavailable Care Team Providers Care Exchange Administrator Name Role Phone Jeanne Perera CP Unavailable Allergies No Known Allergies Problems Problem Type Condition Code Onset Dates Condition Status Assessment Chronic kidney disease (CKD), stage III (moderate) N18.3 Active Problem Pure hypercholesterolemia E78.00 Active Problem Chronic kidney disease (CKD), stage III (moderate) N18.3 Active Problem Other chronic pain G89.29 Active Problem Difficulty walking R26.2 Active Problem Acquired hypothyroidism E03.9 Active Problem Patient had no falls in past year Z78.9 Active Problem Screening for osteoporosis Z13.820 Active Problem Essential hypertension I10 Active Problem Breast cancer screening Z12.39 Active Assessment Pure hypercholesterolemia E78.00 Active Assessment Acquired hypothyroidism E03.9 Active Assessment Essential hypertension I10 Active Medications Medication Code System Code Instructions Start Date End Date Status Dosage Levothyroxine Sodium [facility] 34602664681 150 MCG orally daily Active 1 TABLET ONCE A DAY ORALLY 90 DAYS Atorvastatin Calcium ND 88319145958 80 mg Orally at bedtime Active 1/2 tablet Metoprolol Succinate ER ND 22576082543 50 mg Orally Twice a day Active 1/2 tablet Losartan Potassium ND 34078408795 100 mg Orally Once a day Active 1 tablet Benazepril HCl [facility] 65712913457 40 mg by mouth daily Active 1 tablet once a day orally 90 days Amlodipine Besylate [facility] 89081682461 10 mg Orally Once a day as needed Active 1/2 tablet Results No Known Results Summary Purpose [employer] Submission
--- OUTSIDE RECORDS SUMMARY | 2019-02-05 08:58 | XMS REPORT ---
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
--- OUTSIDE RECORDS SUMMARY | 2019-02-05 08:58 | XMS REPORT | CCD ---
Author Author Auto Generated Organization [facility] Address Unknown Phone Unavailable Care Team Providers Care Boat Hop Name Role Phone Christen Johnson RP Allergies, Adverse Reactions, Alerts Substance Reaction [...]
--- OUTSIDE RECORDS SUMMARY | 2019-02-05 08:58 | XMS REPORT ---
Author Author Jeanne Perera Organization [employer] Address Unknown Phone Unavailable Care Team Providers Care Admissions Evaluator Name Role Phone Jeanne Perera CP Unavailable [...]
--- OUTSIDE RECORDS SUMMARY | 2019-02-05 08:58 | XMS REPORT ---
Author Author Jeanne Perera Organization [employer] Address Unknown Phone Unavailable Care Team Providers Care Roof Bolter Name Role Phone Jeanne Perera CP Unavailable Allergies, Adverse Reactions, Alerts Substance Reaction Event Type codeine Info Not Available Drug Allergy sulfa Info Not Available Drug Allergy Vicodin Info Not Available Drug Allergy Problems Problem Type Condition Code Onset Dates Condition Status Assessment Essential hypertension I10 Active Problem Pure hypercholesterolemia E78.00 Active Problem Chronic kidney disease (CKD), stage III (moderate) N18.3 Active Problem Other chronic pain G89.29 Active Problem Difficulty walking R26.2 Active Problem Acquired hypothyroidism E03.9 Active Problem Patient had no falls in past year Z78.9 Active Problem Screening for osteoporosis Z13.820 Active Problem Essential hypertension I10 Active Problem Breast cancer screening Z12.39 Active Assessment Persistent proteinuria R80.1 Active Assessment Acquired hypothyroidism E03.9 Active Assessment Chronic kidney disease (CKD), stage III (moderate) N18.3 Active Assessment Toenail fungus B35.1 Active Assessment Pure hypercholesterolemia E78.00 Active Medications Medication Code System Code Instructions Start Date End Date Status Dosage Metoprolol Succinate ER [facility] 69773958999 50 MG Orally Once a day Active 1 tablet Atorvastatin Calcium [facility] 46545458561 80 MG Orally Once a day Active 1 tablet Levothyroxine Sodium [facility] 20932242678 150 MCG orally daily Active 1 TABLET ONCE A DAY ORALLY 90 DAYS Benazepril HCl [facility] 51886111147 40 MG by mouth daily Active 1 tablet once a day orally 90 days Losartan Potassium ND 24118176872 100 MG Orally Once a day Active 1 tablet Mycophenolate Mofetil ND 24109523161 500 MG Orally Twice a day Active 2 tablets LamISIL AT [place] [facility] [address]-26 1 % Externally Twice a day Jun 28, 2017 December 25, 2017 Active 1 drop to affected area Multi Vitamin Daily ND 77014244994 Orally Once a day Active 1 tablet Amlodipine Besylate ND 13180056336 10 MG Orally Once a day Active 1 tablet G82-Lvwfhg NDC 53841263946 1 MG Orally Active not defined Baby Aspirin NDC 0 Active not defined Vagifem [facility] 54696266615 10 MCG Vaginal Active 1 tablet Vital Signs Date/Time: Jun 28, 2017 BMI 30.40 Index Weight 218 lbs Height 71 in Temperature 98.3 F Blood Pressure Diastolic 91 mm Hg Blood Pressure Systolic 174 mm Hg Results No Known Results Summary Purpose [employer] Submission
--- OUTSIDE RECORDS SUMMARY | 2019-02-05 08:58 | XMS REPORT | Summary of Care ---
Author Author [facility] Organization [facility] Address Unknown Phone Unavailable Encounter KRAIG Rose(MYRTLE) [id number] Date(s): 11/14/17 - 11/19/17 [facility] [address] [place] [address]- Encounter Diagnosis Dehydration (Final) - Bronchopneumonia, unspecified organism (Final) - 11/23/17 Acute kidney failure, unspecified (Final) - Glomerular 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 (Final) - Dehydration (Final) - Occlusion and stenosis of right carotid artery (Final) - Chronic kidney disease, stage 3 (moderate) (Final) - Hypertensive chronic kidney disease with stage 1 through stage 4 chronic kidney disease, or unspecified chronic kidney disease (Final) - Hypothyroidism, unspecified (Final) - Encounter for immunization (Final) - Personal history of nicotine dependence (Final) - Proteinuria, unspecified (Final) - Discharge Disposition: Home or Self Care Attending Physician: Jeanne Perera MD Admitting Physician: Jeanne Perera MD Vital Signs 1 2 3 Most recent to oldest [Reference Range]: 180.34 cm (11/14/17 5:42 PM) Height 97.3 DegF (11/19/17 3:36 PM) 97.8 DegF (11/19/17 11:22 AM) 97.4 DegF (11/19/17 7:28 AM) Temperature Oral [96.4-99.1 DegF] 154/83 mmHg *HI* (11/19/17 3:36 PM) 153/77 mmHg *HI* (11/19/17 11:22 AM) 157/82 mmHg *HI* (11/19/17 7:28 AM) Blood Pressure [90-140/60-90 mmHg] 18 BRMIN (11/19/17 3:36 PM) 16 BRMIN (11/19/17 11:22 AM) 16 BRMIN (11/19/17 7:28 AM) Respiratory Rate [14-20 BRMIN] 77 bpm (11/19/17 3:36 PM) 64 bpm (11/19/17 11:22 AM) 70 bpm (11/19/17 7:28 AM) Peripheral Pulse Rate [60-100 bpm] 93.636 kg (11/15/17 5:00 PM) 92.273 kg (11/14/17 5:42 PM) Weight 28.37 m2 (11/14/17 5:42 PM) Body Mass Index Problem List Condition Effective Dates Status Health Status Informant Abdominal Active hysterectomy(Confirm ed) Appendectomy(Confirm Active ed) ARF - Acute renal < 10/12/10 Resolved failure(Confirmed) Degenerative joint Active disease(Confirmed) GERD - Active Gastro-esophageal reflux disease(Confirmed) Murmur(Confirmed) Active HTN - Active Hypertension(Confirm ed) Hyperlipidemia(Confi Active rmed) Hypertension(Confirm Active ed) Hypothyroidism1 Active Knee Active replacement(Confirme d) Lymphedema(Confirmed Active ) Mitral valve Active prolapse(Confirmed) Tricuspid Active regurgitation(Confir med) 1Data migrated from [employer] on 03/03/15. Allergies, Adverse Reactions, Alerts Substance Reaction Severity Status sulfa drugs1 Active codeine Active Vicodin Active Celebrex Active Albuterol Sulfate Active 1Data migrated from [employer] on 04/30/15. Originally documented as SULFA. Dermatological problems, e.g., rash, hives Medications *RN pls bring pts home med Co-Q10 to pharmacy to label* *RN pls bring pts home med Co-Q10 to pharmacy to label*, Reminder, Drug form: UT SC, Route: MISC, QSHIFT, 11/15/17 0:00:00 WAISTLINE JOINER OVERLOCK, Duration: 30 day, Stop date: 11/30 02/16 16:00:00 CDT Start Date: 11/15/17 Stop Date: 11/19/17 Status: Discontinued acetylcysteine oral solution (mg) 600 mg, Route: PO, Drug form: SOLN, BID, Dosing Weight 93.636, kg, Start date: 0 11/17/17 17:00:00 WAISTLINE JOINER OVERLOCK, Duration: 2 day, Stop date: 11/19/17 9:00:00 WAISTLINE JOINER OVERLOCK Start Date: 11/17/17 Stop Date: 11/17/17 Status: Deleted acetylcysteine oral solution (mg) 600 mg, 3 mL, Route: PO, Drug form: SOLN, BID, Dosing Weight 93.636, kg, Start d ate: 11/17/17 9:00:00 WAISTLINE JOINER OVERLOCK, Duration: 2 day, Stop date: 11/18/17 17:00:00 WAISTLINE JOINER OVERLOCK Start Date: 11/17/17 Stop Date: 11/18/17 Status: Completed albuterol 1.25 mg, 3 mL, Route: NEB, Drug form: SOLN, PRN, PRN Respiratory Protocol, Start date: 11/16/17 7:35:00 WAISTLINE JOINER OVERLOCK, Duration: 30 day, Stop date: 12/16/17 8:34:00 CDT Notes: SEE RT DOCUMENTATION (Same as: Cecy) Start Date: 11/16/17 Stop Date: 11/16/17 Status: Discontinued albuterol 0.083% inhalation solution 2.49 mg, 3 mL, Route: NEB, Drug form: SOLN, PRN, Dosing Weight 92.273, kg, PRN R espiratory Protocol, Start date: 11/14/17 17:47:00 WAISTLINE JOINER OVERLOCK, Duration: 30 day, Stop d ate: 12/14/17 18:46:00 CDT Notes: SEE RT DOCUMENTATION (Same as: Cecy) Start Date: 11/14/17 Stop Date: 11/15/17 Status: Discontinued albuterol 0.083% inhalation solution 2.49 mg, 3 mL, Route: NEB, Drug form: SOLN, PRN, Dosing Weight 92.273, kg, PRN R espiratory Protocol, Start date: 11/15/17 8:49:00 WAISTLINE JOINER OVERLOCK, Duration: 30 day, Stop da te: 12/15/17 9:48:00 CDT Notes: SEE RT DOCUMENTATION (Same as: Proventil) Start Date: 11/15/17 Stop Date: 11/19/17 Status: Discontinued amLODIPine 5 mg, 1 tab, Route: PO, Drug form: TAB, Daily, Dosing Weight 93.636, kg, Start d ate: 11/18/17 9:00:00 WAISTLINE JOINER OVERLOCK, Duration: 30 day, Stop date: 12/17/17 9:00:00 CDT Notes: (Same as: Norvasc) Start Date: 11/18/17 Stop Date: 11/19/17 Status: Discontinued amLODIPine 5 mg oral tablet 5 mg=1 tab, PO, Daily, # 30 tab, 3 Refill(s), Pharmacy: [id number] Start Date: 11/19/17 Stop Date: 01/22/18 Status: Completed azithromycin + Sodium Chloride 0.9% IV 250 mL 500 mg, Route: IVPB, [id number], Dosing Weight 90.909, kg, Start date: 11/14/17 18: 00:00 WAISTLINE JOINER OVERLOCK, Duration: 10 day, Stop date: 11/23/17 18:00:00 WAISTLINE JOINER OVERLOCK, ABX Indication: P neumonia Notes: (Same As: Zithromax IV) Start Date: 11/14/17 Stop Date: 11/19/17 Status: Discontinued azithromycin 500 mg oral tablet 500 mg=1 tab, PO, Daily, X 5 day, # 5 tab, 0 Refill(s), Pharmacy: [facility] [id number] Start Date: 11/19/17 Stop Date: 11/24/17 Status: Completed benazepril 40 mg, Route: PO, Drug form: TAB, Bedtime, Dosing Weight 92.273, kg, Start date: 11/14/17 21:00:00 WAISTLINE JOINER OVERLOCK, Duration: 30 day, Stop date: 12/13/17 21:00:00 CDT Start Date: 11/14/17 Stop Date: 11/14/17 Status: Deleted benazepril 40 mg oral tablet 40 mg=1 tab, PO, Bedtime, # 90 tab, 0 Refill(s) Start Date: 11/14/17 Stop Date: 01/22/18 Status: Deleted Co-Q10 200 mg, Route: PO, Drug form: CAP, Daily, Dosing Weight 92.273, kg, Start date: 11/15/17 9:00:00 WAISTLINE JOINER OVERLOCK, Duration: 30 day, Stop date: 12/14/17 9:00:00 CDT Start Date: 11/15/17 Stop Date: 11/19/17 Status: Discontinued docusate 100 mg, 1 cap, Route: PO, Drug form: CAP, BID, Dosing Weight 90.909, kg, PRN as needed for constipation, Start date: 11/14/17 17:40:00 WAISTLINE JOINER OVERLOCK, Duration: 30 day, St op date: 12/14/17 17:39:00 CDT Notes: (Same as: Colace) (Do Not Crush) Start Date: 11/14/17 Stop Date: 11/19/17 Status: Discontinued Imodium A-D 2 mg, 1 cap, Route: PO, Drug form: CAP, Q6H, Dosing Weight 93.636, kg, PRN Loose Stools, Start date: 11/15/17 20:08:00 WAISTLINE JOINER OVERLOCK, Duration: 30 day, Stop date: 12/15/17 20:07:00 CDT Notes: (Same as: Imodium) MAX adult dose is 8 caps/day Start Date: 11/15/17 Stop Date: 11/19/17 Status: Discontinued influenza virus vaccine, inactivated 0.5 mL, Route: IM, Drug Form: SUSP, Daily, Start date: 11/15/17 9:00:00 WAISTLINE JOINER OVERLOCK, Dur ation: 1 doses or times, Stop date: 11/15/17 9:00:00 WAISTLINE JOINER OVERLOCK Notes: (Same as: Fluzone Quadrivalent, Fluarix Quadrivalent)For 3 years of age a nd older (0.5 mL IM)Shake well before use Start Date: 11/15/17 Stop Date: 11/15/17 Status: Completed levothyroxine 150 microgram, 1 tab, Route: PO, Drug form: TAB, Q630AM, Dosing Weight 92.273, k g, Start date: 11/15/17 6:30:00 WAISTLINE JOINER OVERLOCK, Duration: 30 day, Stop date: 12/14/17 6:30: 00 CDT Notes: Take 1 hour before or 2 hours after meal; Enteral feeds may interefere wi th the absorption of this medication. (Same as: Levothroid) Start Date: 11/15/17 Stop Date: 11/19/17 Status: Discontinued levothyroxine 150 mcg (0.15 mg) oral tablet 150 microgram=1 tab, PO, Daily, # 90 tab, 1 Refill(s) Start Date: 11/14/17 Status: Ordered Lipitor 40 mg, 1 tab, Route: PO, Drug form: TAB, Daily, Dosing Weight 92.273, kg, Start date: 11/15/17 9:00:00 WAISTLINE JOINER OVERLOCK, Duration: 30 day, Stop date: 12/14/17 9:00:00 CDT Notes: (Same as: Lipitor) Start Date: 11/15/17 Stop Date: 11/14/17 Status: Canceled Lipitor 40 mg, 1 tab, Route: PO, Drug form: TAB, Bedtime, Dosing Weight 92.273, kg, Star t date: 11/14/17 21:30:00 WAISTLINE JOINER OVERLOCK, Duration: 30 day, Stop date: 12/14/17 21:00:00 CD T Notes: (Same as: Lipitor) Start Date: 11/14/17 Stop Date: 11/19/17 Status: Discontinued lisinopril 40 mg, 2 tab, Route: PO, Drug form: TAB, Bedtime, Start date: 11/14/17 21:00:00 WAISTLINE JOINER OVERLOCK, Duration: 30 day, Stop date: 12/13/17 21:00:00 CDT Notes: (Same as: Prinivil, Zestril) Start Date: 11/14/17 Stop Date: 11/19/17 Status: Discontinued losartan 100 mg, 2 tab, Route: PO, Drug form: TAB, Daily, Dosing Weight 92.273, kg, Start date: 11/15/17 9:00:00 WAISTLINE JOINER OVERLOCK, Duration: 30 day, Stop date: 12/14/17 9:00:00 CDT Notes: (Same as: Harjitzaar) Start Date: 11/15/17 Stop Date: 11/19/17 Status: Discontinued methylPREDNISolone SODium SUCCinate 40 mg, 1 mL, Route: IVP, Drug form: INJ, Q12H, Dosing Weight 93.636, kg, Start d ate: 11/16/17 9:07:00 WAISTLINE JOINER OVERLOCK, Duration: 30 day, Stop date: 12/16/17 9:00:00 CDT Notes: (Same as:Solu-MEDROL, A-Methapred) Start Date: 11/16/17 Stop Date: 11/19/17 Status: Discontinued metoprolol extended release 25 mg, 1 tab, Route: PO, Drug form: ERTAB, BID, Dosing Weight 92.273, kg, Start date: 11/15/17 9:00:00 WAISTLINE JOINER OVERLOCK, Duration: 30 day, Stop date: 12/14/17 21:00:00 CDT Notes: (Same as: Toprol XL) Do Not Crush Start Date: 11/15/17 Stop Date: 11/19/17 Status: Discontinued morphine Sulfate 6 mg, 3 mL, Route: PO, Drug form: SOLN, Q4H, Dosing Weight 90.909, kg, PRN Pain Score 7-10, Start date: 11/14/17 17:40:00 WAISTLINE JOINER OVERLOCK, Duration: 30 day, Stop date: 11/30 02/16 17:39:00 CDT Notes: (Same as:MORPhine Sulfate) Start Date: 11/14/17 Stop Date: 11/19/17 Status: Discontinued mycophenolate mofetil 1,000 mg, 2 tab, Route: PO, Drug form: TAB, Daily, Dosing Weight 92.273, kg, Sta rt date: 11/15/17 9:00:00 WAISTLINE JOINER OVERLOCK, Duration: 30 day, Stop date: 12/14/17 9:00:00 CDT Notes: SEPARATE ANTACIDS from Cellcept by 2 hrs.(Same As: CellCept) Start Date: 11/15/17 Stop Date: 11/19/17 Status: Discontinued mycophenolate mofetil 500 mg, 1 tab, Route: PO, Drug form: TAB, Bedtime, Dosing Weight 92.273, kg, Sta rt date: 11/14/17 21:00:00 WAISTLINE JOINER OVERLOCK, Duration: 30 day, Stop date: 12/13/17 21:00:00 C DT Notes: SEPARATE ANTACIDS from Cellcept by 2 hrs.(Same As: CellCept) Start Date: 11/14/17 Stop Date: 11/19/17 Status: Discontinued mycophenolate mofetil 500 mg oral tablet 1,000 mg=2 tab, PO, Q12H, # 360 tab, 0 Refill(s) Start Date: 11/14/17 Status: Ordered mycophenolate mofetil 500 mg oral tablet 500 mg=1 tab, PO, Bedtime, 0 Refill(s) Start Date: 11/14/17 Stop Date: 01/22/18 Status: Deleted Omnipaque 350 100 ml, Route: IV, Drug Form: SOLN, Dosing Weight 93.636, kg, ONCE, Start date: 11/18/17 10:03:00 WAISTLINE JOINER OVERLOCK, Stop date: 11/18/17 10:03:00 WAISTLINE JOINER OVERLOCK Notes: (same as:Omnipaque 350).WASTE: F/P - Black; E - Municipal Trash Bin Start Date: 11/18/17 Stop Date: 11/18/17 Status: Completed ondansetron 4 mg, 2 mL, Route: IVP, Drug form: INJ, Q6H, Dosing Weight 90.909, kg, PRN Nause a & Vomiting, Start date: 11/14/17 17:40:00 WAISTLINE JOINER OVERLOCK, Duration: 30 day, Stop date: 12/14/17 17:39:00 CDT Notes: (Same as: Preston) MEDICATION WASTE Product Size: 4 mgProduct Was shaunna: ___ mg Start Date: 11/14/17 Stop Date: 11/19/17 Status: Discontinued pantoprazole 40 mg, 1 tab, Route: PO, Drug form: ECTAB, BID-Before Meals, Dosing Weight 92.27 3, kg, Start date: 11/15/17 7:30:00 WAISTLINE JOINER OVERLOCK, Duration: 30 day, Stop date: 12/14/17 1 6:30:00 CDT Notes: Tablet should not be chewed or crushed.(Same as: Protonix) Start Date: 11/15/17 Stop Date: 11/19/17 Status: Discontinued Plavix 75 mg, 1 tab, Route: PO, Drug form: TAB, Daily, Dosing Weight 93.636, kg, Start date: 11/17/17 9:00:00 WAISTLINE JOINER OVERLOCK, Duration: 30 day, Stop date: 12/16/17 9:00:00 CDT Notes: (Same As: Plavix) Start Date: 11/17/17 Stop Date: 11/17/17 Status: Discontinued pneumococcal 13-valent vaccine 0.5 mL, Route: IM, Drug Form: INJ, Daily, Start date: 11/15/17 9:00:00 WAISTLINE JOINER OVERLOCK, Dura tion: 1 doses or times, Stop date: 11/15/17 9:00:00 WAISTLINE JOINER OVERLOCK Notes: Shake well prior to use (Same as: Prevnar 13) Start Date: 11/15/17 Stop Date: 11/15/17 Status: Completed predniSONE 10 mg oral tablet See Special Instructions, PO, Daily, D 1 - 3 tabs D2 - 2 1/2 tab D3 - 2 tabs D 4 -1 1/2 tab D5 - 1 tab D 6 - 1/2 tab, X 6 day, # 12 tab, 0 Refill(s), Pharm acy: [facility] [id number] Start Date: 11/19/17 Stop Date: 11/25/17 Status: Completed Promethazine DM oral syrup 5 mL, PO, BID-Before Meals, PRN for cough, # 120 mL, 0 Refill(s) Start Date: 11/14/17 Stop Date: 11/19/17 Status: Discontinued Robitussin 100 mg, 5 mL, Route: PO, Drug Form: LIQ, Dosing Weight 92.273, kg, Q4H, PRN as n eeded for congestion, Start date: 11/14/17 21:00:00 WAISTLINE JOINER OVERLOCK, Duration: 30 day, Stop date: 12/14/17 20:59:00 CDT Notes: (Same as: Robitussin) Start Date: 11/14/17 Stop Date: 11/15/17 Status: Discontinued Robitussin-DM 10 mL, Route: PO, Drug Form: LIQ, Dosing Weight 92.273, kg, Q4H, PRN as needed f or cough, Start date: 11/15/17 8:49:00 WAISTLINE JOINER OVERLOCK, Duration: 30 day, Stop date: 8 8:48:00 CDT Notes: (dextromethorphan-guaifenesin 10-100/5 ml LIQ) (Same as: Robitussin-DM) Start Date: 11/15/17 Stop Date: 11/19/17 Status: Discontinued Rocephin + sterile water 10 mL 1 gm, Route: IV, Drug form: PDR/INJ, [id number], Dosing Weight 90.909, kg, Start da te: 11/14/17 18:00:00 WAISTLINE JOINER OVERLOCK, Duration: 7 day, Stop date: 11/20/17 18:00:00 WAISTLINE JOINER OVERLOCK, AB X Indication: Pneumonia Notes: (Same As: Rocephin).Use with 100 mL NS and infuse over 30 min MEDICA TION WASTE Product Size: 1000 mgProduct Wasted: ___ mg Start Date: 11/14/17 Stop Date: 11/19/17 Status: Discontinued Saline Flush 0.9% 10 ml, Route: IVP, Drug Form: INJ, Dosing Weight 90.909, kg, PRN, PRN Line Flush , Start date: 11/14/17 17:40:00 WAISTLINE JOINER OVERLOCK, Duration: 30 day, Stop date: 12/14/17 18:39 :00 CDT Notes: (Same as: BD Posiflush) Start Date: 11/14/17 Stop Date: 11/19/17 Status: Discontinued Sodium Chloride 0.9% IV 1,000 mL 1,000 mL, Rate: 75 ml/hr, Infuse over: 13.3 hr, Route: IV, Dosing Weight 93.636 kg, Total Volume: 1,000, Start date: 11/14/17 17:40:00 WAISTLINE JOINER OVERLOCK, Stop date: 12/14/17 16:39:00 CDT, 2.18, m2 Start Date: 11/14/17 Stop Date: 11/19/17 Status: Discontinued Tylenol 650 mg, 20.3 mL, Route: PO, Drug form: LIQ, Q6H, Dosing Weight 93.636, kg, PRN P ain Score 6-10, Start date: 11/16/17 9:04:00 WAISTLINE JOINER OVERLOCK, Duration: 30 day, Stop date: 0 12/16/17 9:03:00 CDT Notes: Max [id number]=9400uu/day (4 gm/day). (Same as: Tylenol) Start Date: 11/16/17 Stop Date: 11/19/17 Status: Discontinued Vitamin B12 500 microgram, 1 tab, Route: PO, Drug form: TAB, Daily, Dosing Weight 92.273, kg , Start date: 11/15/17 9:00:00 WAISTLINE JOINER OVERLOCK, Duration: 30 day, Stop date: 12/14/17 9:00:0 0 CDT Notes: (Same As: Vitamin B12) Start Date: 11/15/17 Stop Date: 11/19/17 Status: Discontinued Xopenex 0.63 mg, 3 mL, Route: NEB, Drug form: SOLN, PRN, PRN Respiratory Protocol, Start date: 11/16/17 11:55:00 WAISTLINE JOINER OVERLOCK, Duration: 30 day, Stop date: 12/16/17 12:54:00 CDT Notes: SEE RT DOCUMENTATION (Same as:Xopenex)Non-Formulary Start Date: 11/16/17 Stop Date: 11/19/17 Status: Discontinued Xopenex 0.63 mg, Route: NEB, PRN, Dosing Weight 93.636, kg, PRN Respiratory Protocol, St art date: 11/16/17 7:42:00 WAISTLINE JOINER OVERLOCK, Duration: 30 day, Stop date: 12/16/17 8:41:00 CD T, Substitute Allowed Never Start Date: 11/16/17 Stop Date: 11/16/17 Status: Voided With Results Xopenex 0.63 mg, Route: NEB, PRN, Dosing Weight 93.636, kg, PRN Respiratory Protocol, St art date: 11/16/17 7:31:00 WAISTLINE JOINER OVERLOCK, Duration: 30 day, Stop date: 12/16/17 8:30:00 CD T Start Date: 11/16/17 Stop Date: 11/16/17 Status: Deleted Results ELECTROLYTES 1 2 3 Most recent to oldest [Reference Range]: 143 mEq/L (11/18/17 4:54 AM) 142 mEq/L (11/17/17 7:23 AM) 136 mEq/L (11/14/17 6:31 PM) Sodium Lvl [135-145 mEq/L] 4.4 mEq/L (11/18/17 4:54 AM) 4.3 mEq/L (11/17/17 7:23 AM) 4.0 mEq/L (11/14/17 6:31 PM) Potassium Lvl [3.5-5.1 mEq/L] 111 mEq/L *HI* (11/18/17 4:54 AM) 110 mEq/L *HI* (11/17/17 7:23 AM) 101 mEq/L (11/14/17 6:31 PM) Chloride Lvl [95-109 mEq/L] 23 mEq/L *LOW* (11/18/17 4:54 AM) 24 mEq/L (11/17/17 7:23 AM) 23 mEq/L *LOW* (11/14/17 6:31 PM) CO2 [24-32 mEq/L] 13.4 mEq/L (11/18/17 4:54 AM) 12.3 mEq/L (11/17/17 7:23 AM) 16.0 mEq/L (11/14/17 6:31 PM) AGAP [10.0-20.0 mEq/L] CHEM PANEL 1 2 3 Most recent to oldest [Reference Range]: 0.72 mg/dL (11/18/17 4:54 AM) 0.71 mg/dL (11/17/17 7:23 AM) 1.50 mg/dL *HI* (11/14/17 6:31 PM) Creatinine Lvl [0.50-1.40 mg/dL] 83 mL/min/1.73m2 1 *NA* (11/18/17 4:54 AM) 84 mL/min/1.73m2 2 *NA* (11/17/17 7:23 AM) 34 mL/min/1.73m2 3 *NA* (11/14/17 6:31 PM) eGFR 16 mg/dL (11/18/17 4:54 AM) 15 mg/dL (11/17/17 7:23 AM) 33 mg/dL *HI* (11/14/17 6:31 PM) BUN [7-22 mg/dL] 22 (11/14/17 6:31 PM) B/C Ratio [6-25] 144 mg/dL *HI* (11/18/17 4:54 AM) 136 mg/dL *HI* (11/17/17 7:23 AM) 85 mg/dL (11/14/17 6:31 PM) Glucose Lvl [70-99 mg/dL] 7.0 g/dL (11/14/17 6:31 PM) Total Protein [6.4-8.4 g/dL] 3.2 g/dL *LOW* (11/14/17 6:31 PM) Albumin Lvl [3.5-5.0 g/dL] 3.8 g/dL (11/14/17 6:31 PM) Globulin [2.7-4.2 g/dL] 0.8 (11/14/17 6:31 PM) A/G Ratio [0.7-1.6] 7.8 mg/dL *LOW* (11/18/17 4:54 AM) 7.7 mg/dL *LOW* (11/17/17 7:23 AM) 8.8 mg/dL (11/14/17 6:31 PM) Calcium Lvl [8.5-10.5 mg/dL] 18 unit/L (11/14/17 6:31 PM) ALT [0-65 unit/L] 19 unit/L (11/14/17 6:31 PM) AST [0-37 unit/L] 93 unit/L (11/14/17 6:31 PM) Alk Phos [39-136 unit/L] 0.7 mg/dL (11/14/17 6:31 PM) Bili Total [0.2-1.3 mg/dL] 1.4 mMol/L (11/14/17 6:31 PM) Lactic Acid Lvl [0.5-2.2 mMol/L] 0.06 (11/14/17 6:31 PM) Procalcitonin Lvl [0.00-0.10] 1Result Comment: The eGFR is calculated using [...] be mul tiplied by the estimated BMI. 2Result Comment: The eGFR is calculated using the [...] be mul tiplied by the estimated BMI. 3Result Comment: The eGFR is calculated using the [...] be mul tiplied by the estimated BMI. URINE CHEM 1 2 3 Most recent to oldest [Reference Range]: 485.0 mg/L *NA* (11/17/17 8:31 PM) U Microalb 693.8 mcg/mg creat *HI* (11/17/17 8:31 PM) U Alb/Crea [<=30.0 mcg/mg creat] 69.90 mg/dL *NA* (11/17/17 8:31 PM) U Creatinine URINE AND STOOL 1 2 3 Most recent to oldest [Reference Range]: Clear (11/17/17 8:31 PM) UA Turbidity [Clear] Ltyellow *NA* (11/17/17 8:31 PM) UA Color 6.0 (11/17/17 8:31 PM) UA pH [5.0-8.0] 1.013 (11/17/17 8:31 PM) UA Spec Grav [<=1.030] 50 mg/dL *ABN* (11/17/17 8:31 PM) UA Glucose [Negative mg/dL] Negative (11/17/17 8:31 PM) UA Blood [Negative] Negative mg/dL *NA* (11/17/17 8:31 PM) UA Ketones [Negative mg/dL] 100 mg/dL *ABN* (11/17/17 8:31 PM) UA Protein [Negative mg/dL] <=1.0 mg/dL *NA* (11/17/17 8:31 PM) UA Urobilinogen [0.1-1.0 mg/dL] Negative *NA* (11/17/17 8:31 PM) UA Bili [Negative] Negative (11/17/17 8:31 PM) UA Leuk Est [Negative] Negative (11/17/17 8:31 PM) UA Nitrite [Negative] <1 /HPF (11/17/17 8:31 PM) UA WBC [0-5 /HPF] <1 /HPF (11/17/17 8:31 PM) UA RBC [0-2 /HPF] Occasional /HPF *NA* (11/17/17 8:31 PM) UA Bacteria [None Seen /HPF] Occasional /LPF *NA* (11/17/17 8:31 PM) UA Sq Epi [Few /LPF] Few /LPF *NA* (11/17/17 8:31 PM) UA Mucus [None Seen /LPF] IMMUNOLOGY 1 2 3 Most recent to oldest [Reference Range]: 116 mg/dL (11/14/17 6:31 PM) C3 Complement [88-201 mg/dL] 27 mg/dL (11/14/17 6:31 PM) C4 Complement [16-47 mg/dL] HEMATOLOGY 1 2 3 Most recent to oldest [Reference Range]: 9.2 K/CMM (11/18/17 4:54 AM) 8.4 K/CMM (11/14/17 6:31 PM) WBC [3.7-10.4 K/CMM] 3.81 M/CMM *LOW* (11/18/17 4:54 AM) 4.71 M/CMM (11/14/17 6:31 PM) RBC [4.20-5.40 M/CMM] 11.4 g/dL *LOW* (11/18/17 4:54 AM) 14.3 g/dL (11/14/17 6:31 PM) Hgb [12.0-16.0 g/dL] 34.1 % *LOW* (11/18/17 4:54 AM) 42.6 % (11/14/17 6:31 PM) Hct [36.0-48.0 %] 89.4 fL (11/18/17 4:54 AM) 90.4 fL (11/14/17 6:31 PM) MCV [80.0-98.0 fL] 29.8 pg (11/18/17 4:54 AM) 30.2 pg (11/14/17 6:31 PM) MCH [27.0-31.0 pg] 33.4 g/dL (11/18/17 4:54 AM) 33.5 g/dL (11/14/17 6:31 PM) MCHC [32.0-36.0 g/dL] 13.4 % (11/18/17 4:54 AM) 13.6 % (11/14/17 6:31 PM) RDW [11.5-14.5 %] 9.8 fL (11/18/17 4:54 AM) 9.1 fL (11/14/17 6:31 PM) MPV [7.4-10.4 fL] 165 K/CMM (11/18/17 4:54 AM) 192 K/CMM (11/14/17 6:31 PM) Platelet [133-450 K/CMM] 89.5 % *HI* (11/18/17 4:54 AM) 78.4 % *HI* (11/14/17 6:31 PM) Segs [45.0-75.0 %] 8.5 % *LOW* (11/18/17 4:54 AM) 8.7 % *LOW* (11/14/17 6:31 PM) Lymphocytes [20.0-40.0 %] 1.9 % *LOW* (11/18/17 4:54 AM) 9.5 % (11/14/17 6:31 PM) Monocytes [2.0-12.0 %] 2.9 % (11/14/17 6:31 PM) Eosinophils [0.0-4.0 %] 0.1 % (11/18/17 4:54 AM) 0.5 % (11/14/17 6:31 PM) Basophils [0.0-1.0 %] 8.3 K/CMM *HI* (11/18/17 4:54 AM) 6.6 K/CMM (11/14/17 6:31 PM) Segs-Bands # [1.5-8.1 K/CMM] 0.8 K/CMM *LOW* (11/18/17 4:54 AM) 0.7 K/CMM *LOW* (11/14/17 6:31 PM) Lymphocytes # [1.0-5.5 K/CMM] 0.2 K/CMM (11/18/17 4:54 AM) 0.8 K/CMM (11/14/17 6:31 PM) Monocytes # [0.0-0.8 K/CMM] 0.2 K/CMM (11/14/17 6:31 PM) Eosinophils # [0.0-0.5 K/CMM] Immunizations Given and Recorded Vaccine Date Status [...] Reg Smoking Cessation Counseling No entered on: 02/13/18 Assessment and Plan Extracted from: Title: Clinical Document Author: Tam Jones MD Date: 11/19/17 VASCULAR SURGERY PROGRESS NOTE DIAGNOSIS: Carotid stenosis Renal insufficiency SUBJECTIVE: _No new neurosymptoms OBJECTIVE: _ General: AAO Chest: Clear to auscultation, Basilar rhonchi/ Rales Cardiac: Rate rhythym is regular, no murmurs Abdomen: Soft, nonTender, No peritoneal signs No pulsatile mass ASSESSMENT & PLAN: CTA reveals no significant carotid artery stenosis and bilateral carotid arteries. Patient is cleared from my standpoint to be discharged home. I recommend continued best medical therapy. _ VitalsTmp(F)Tmp(C)[id number] 11/19 11:2297.836.41noiq390/77---[id number]------ 11/19 07:2897.436.05uskg516/82---[id number]------ 11/19 07:09 1293------ 11/19 04:0097.736.12erow713/75---8818--------- 11/19 00:2998.136.12eacl070/71---8018--------- 24 Hr Tmax: 98.1F (36.72c) at 11/19 00:29Vital Signs are the last 5 in the past 48 hours. 24 Hr Tmin: 97.4F (36.33c) at 11/19 07:28Weights are the last 5 in 60 days, plus initial. DateWt(kg)Wt(lb)Ht(cm)Ht(in)MethodBMIBSA 11/15 93.64 206.00Measured 11/14 (initial) 92.27 203.00Estimated 28.4 77045.34 71.00Stated (no point of care glucose results charted in last 24 hours) Most Recent Scores: 11/19/17Pain Intensity NRS (0-10)0 11/19/17Glasgow Coma Score15 11/19/17Johns Carrion Fall Score3 11/19/17Braden Score20 Lines, Tubes, and Drains: 11/17/2017 20:46 Peripheral Lines: Forearm Right 20 gauge Over the needle catheter (no surgical procedures documented) I/O Intake OutputBalance 11/19/2017 7a-3p 331.00 0.00 331.00 3p-11p 0.00 0.00 0.00 11p-7a 0.00 0.00 0.00 Totals 331.00 0.00 331.00 As of 14:01 11/18/2017 7a-3p 774.00 0.00 774.00 3p-11p 614.30 0.00 614.30 11p-7a 300.00 0.00 300.00 Totals 1688.30 0.00 1688.30 11/17/2017 7a-3p 494.00 0.00 494.00 3p-11p 551.00 0.00 551.00 11p-7a 60.00 0.00 60.00 Totals 1105.00 0.00 1105.00 (no lab data in past 24 hours) Scheduled Meds (15): 11/18/17 9:00 amLODIPine 5 mg PO Daily [eMAR Schedule: (11/19/17) 09:00] [Future Dose: 11/20/17 09:00] 11/14/17 21:30 atorvastatin (Lipitor) 40 mg PO Bedtime [Last Rescheduled Dt/Tm: 11/15/17 21:00:00 WAISTLINE JOINER OVERLOCK] [eMAR Schedule: (11/19/17) 21:00] [Future Dose: 11/20/17 21:00] 11/14/17 18:00 azithromycin + Sodium Chloride 0.9% IV 250 mL 500 mg IVPB [id number] 166.67 ml/hr [eMAR Schedule: (11/19/17) 18:00] [Future Dose: 11/20/17 18:00] 11/14/17 18:00 cefTRIAXone + sterile water 10 mL (Rocephin + sterile water 10 mL) 1 gm IV [id number] 120 ml/hr [eMAR Schedule: (11/19/17) 18:00] [Future Dose: 11/20/17 18:00] 11/15/17 9:00 cyanocobalamin (Vitamin B12) 500 microgram PO Daily [eMAR Schedule: (11/19/17) 09:00] [Future Dose: 11/20/17 09:00] 11/15/17 6:30 levothyroxine 150 microgram PO Q630AM [Last Rescheduled Dt/Tm: 11/15/17 6:30:00 WAISTLINE JOINER OVERLOCK] [eMAR Schedule: (11/19/17) 06:30] [Future Dose: 11/20/17 06:30] 11/17/17 12:24 (Suspended) lisinopril 40 mg PO Bedtime 11/17/17 12:20 (Suspended) losartan 100 mg PO Daily 11/16/17 9:07 methylPREDNISolone (methylPREDNISolone SODium SUCCinate) 40 mg IVP Q12H [Last Rescheduled Dt/Tm: 11/16/17 21:00:00 WAISTLINE JOINER OVERLOCK] [eMAR Schedule: (11/19/17) 09:00, 21:00] 11/15/17 9:00 metoprolol (metoprolol extended release) 25 mg PO BID [eMAR Schedule: (11/19/17) 09:00, 21:00] 11/14/17 21:00 mycophenolate mofetil 500 mg PO Bedtime [Last Rescheduled Dt/Tm: 11/15/17 21:00:00 WAISTLINE JOINER OVERLOCK] [eMAR Schedule: (11/19/17) 21:00] [Future Dose: 11/20/17 21:00] 11/15/17 9:00 mycophenolate mofetil 1,000 mg PO Daily [eMAR Schedule: (11/19/17) 09:00] [Future Dose: 11/20/17 09:00] 11/15/17 0:00 non-formulary (*RN pls bring pts home med Co-Q10 to pharmacy to label*) MISC QSHIFT [eMAR Schedule: (11/19/17) 00:00, 08:00, 16:00; (11/20/17) 00:00] 11/15/17 7:30 pantoprazole 40 mg PO BID-Before Meals [eMAR Schedule: (11/19/17) 07:30, 16:30] 11/15/17 9:00 ubiquinone (Co-Q10) 200 mg PO Daily Unscheduled Meds: None PRN Meds (9): 11/16/17 9:04 acetaminophen (Tylenol) 650 mg PO Q6H 11/15/17 8:49 albuterol (albuterol 0.083% inhalation solution) 2.49 mg NEB PRN 11/15/17 8:49 dextromethorphan-guaiFENesin (Robitussin-DM) 10 mL PO Q4H 11/14/17 17:40 docusate 100 mg PO BID 11/16/17 11:55 levalbuterol (Xopenex) 0.63 mg NEB PRN 11/15/17 20:08 loperamide (Imodium A-D) 2 mg PO Q6H 11/14/17 17:40 morphine Sulfate 6 mg PO Q4H 11/14/17 17:40 ondansetron 4 mg IVP Q6H 11/14/17 17:40 sodium chloride (Saline Flush 0.9%) 10 ml IVP PRN One Time Meds (1): 11/18/17 10:03 (Completed) iohexol (Omnipaque 350) 100 ml IV ONCE Continuous Infusions (1): 11/14/17 17:40 Sodium Chloride 0.9% IV 1,000 mL 1,000 mL 75 ml/hr Extracted from: Title: Clinical Document Author: Jeanne Perera MD Date: 11/14/17 Chart reveiwed. Patient seen and examined. WIll continue to follow. [id number]
--- OUTSIDE RECORDS SUMMARY | 2019-02-05 08:58 | XMS REPORT ---
Author Author Jeanne Perera Organization [employer] Address Unknown Phone Unavailable Care Team Providers Care Cloth Grader Supervisor Name Role Phone Jeanne Perera CP Unavailable Allergies, Adverse Reactions, Alerts Substance Reaction Event Type codeine Info Not Available Drug Allergy sulfa Info Not Available Drug Allergy Vicodin Info Not Available Drug Allergy Problems Problem Type Condition Code Onset Dates Condition Status Assessment Near syncope R55 Active Problem Pure hypercholesterolemia E78.00 Active Problem Chronic kidney disease (CKD), stage III (moderate) N18.3 Active Assessment Dehydration E86.0 Active Problem Other chronic pain G89.29 Active Problem Difficulty walking R26.2 Active Problem Acquired hypothyroidism E03.9 Active Problem Patient had no falls in past year Z78.9 Active Problem Screening for osteoporosis Z13.820 Active Problem Essential hypertension I10 Active Problem Breast cancer screening Z12.39 Active Medications Medication Code System Code Instructions Start Date End Date Status Dosage Vagifem [facility] 62356046206 10 MCG Vaginal Active 1 tablet Amlodipine Besylate ND 95776529833 10 MG Orally Once a day as needed Active 1/2 tablet Medrol [facility] 26529857007 4 MG Orally as directed Nov 06, 2017 Active as directed Losartan Potassium ND 20874574745 100 MG Orally Once a day Active 1 tablet Baby Aspirin NDC 0 Active not defined [id number] [facility] 93611507342 1 MG Orally Active not defined Levaquin [facility] 96527143539 500 MG Orally Once a day Nov 06, 2017 Nov 16, 2017 Active 1 tablet Albuterol Sulfate HFA [facility] [address]-79 108 (90 Base) MCG/ACT Inhalation twice a day as needed Nov 06, 2017 Active 2 puffs as needed Benazepril HCl [facility] 12580978000 40 MG by mouth daily Active 1 tablet once a day orally 90 days Levothyroxine Sodium ND 64999792114 150 MCG orally daily Active 1 TABLET ONCE A DAY ORALLY 90 DAYS Mycophenolate Mofetil ND 01061632061 500 MG Orally Active 2 tablets in the morning and 1 tablet at night time Benzonatate [facility] 59739921362 200 MG Orally Three times a day Active 1 capsule LamISIL AT [place] [facility] [address]-83 1 % Externally Twice a day Jun 28, 2017 December 25, 2017 Active 1 drop to affected area Multi Vitamin Daily [facility] 20462348235 Orally Once a day Active 1 tablet Metoprolol Succinate ER [facility] 52651577183 50 MG Orally Twice a day Active 1/2 tablet Atorvastatin Calcium [facility] 67348284698 80 MG Orally at bedtime Active 1/2 tablet Vital Signs Date/Time: Nov 14, 2017 BMI 28.45 Index Weight 204 lbs Height 71 in Temperature 98.7 F Blood Pressure Diastolic 62 mm Hg Blood Pressure Systolic 112 mm Hg Results No Known Results Summary Purpose eClinicalWorks Submission
--- OUTSIDE RECORDS SUMMARY | 2019-02-05 08:58 | XMS REPORT | Summary of Care ---
Author Author [facility] Organization [facility] Address Unknown Phone Unavailable Encounter HQ Gladys_john(FIN) [id number] Date(s): 08/15/16 - 08/15/16 [facility] [address] [place] [address]- Discharge Disposition: Home or Self Care Attending [...] Active replacement(Confirme d) 1Data migrated from [employer] on 03/03/15. Allergies, Adverse Reactions, Alerts Substance [...]
--- OUTSIDE RECORDS SUMMARY | 2019-02-05 08:58 | XMS REPORT ---
Author Author Jeanne Perera Organization [employer] Address Unknown Phone Unavailable Care Team Providers Care Wood Grainer Name Role Phone Jeanne Perera CP Unavailable [...] Instructions Start Date End Date Status Dosage Losartan Potassium ND 37742057745 100 MG Orally Once a day Active 1 tablet Levothyroxine Sodium ND 80809923475 150 MCG orally daily Active 1 TABLET ONCE A DAY ORALLY 90 DAYS Amlodipine Besylate ND 87176087675 10 MG Orally Once a day as needed Active 1/2 tablet Benazepril HCl ND 66761921928 40 MG by mouth daily Active 1 tablet once a day orally 90 days Atorvastatin Calcium ND 97177206524 80 MG Orally at bedtime Active 1/2 tablet Metoprolol Succinate ER ND 96849561170 50 MG Orally Twice a day Active 1/2 tablet Results No Known Results Summary Purpose eClinicalWorks Submission
--- OUTSIDE RECORDS SUMMARY | 2019-02-05 08:58 | XMS REPORT ---
Author Author Jeanne Perera Organization [employer] Address Unknown Phone Unavailable Care Team Providers Care Farmworker Poultry Name Role Phone Jeanne Perera CP Unavailable Allergies No Known Allergies Problems Problem Type Condition Code Onset Dates Condition Status Problem Pure hypercholesterolemia E78.00 Active Problem Chronic kidney disease (CKD), stage III (moderate) N18.3 Active Problem Other chronic pain G89.29 Active Problem Difficulty walking R26.2 Active Problem Acquired hypothyroidism E03.9 Active Problem Patient had no falls in past year Z78.9 Active Problem Screening for osteoporosis Z13.820 Active Problem Essential hypertension I10 Active Problem Breast cancer screening Z12.39 Active Medications No Known Medications Results No Known Results Summary Purpose eClinicalWorks Submission
--- OUTSIDE RECORDS SUMMARY | 2019-02-05 08:58 | XMS REPORT | Summary of Care ---
Author Author [facility] Organization [facility] Address Unknown Phone Unavailable Encounter KRAIG Rose(MYRTLE) [id number] Date(s): 02/13/18 - 02/13/18 [facility] [address] [employer] provided by [employer] [facility] [employer] [facility] [place] [address]- Discharge Disposition: Home or Self Care Attending Physician: Omega Ortiz MD Referring Physician: Omega Ortiz MD Vital Signs 1 2 3 Most recent to oldest [Reference Range]: 180.34 cm (02/13/18 7:42 AM) Height 148/67 mmHg *HI* (02/13/18 7:00 PM) 148/67 mmHg *HI* (02/13/18 6:45 PM) 150/70 mmHg *HI* (02/13/18 6:30 PM) Blood Pressure [90-140/60-90 mmHg] 89.091 kg (02/13/18 7:42 AM) Weight 27.39 m2 (02/13/18 7:42 AM) Body Mass Index Problem List Condition [...] Tricuspid Active regurgitation(Confir med) 1Data migrated from [employer] on 03/03/15. Allergies, Adverse Reactions, Alerts Substance Reaction Severity Status sulfa drugs1 Active codeine Active Vicodin Active Celebrex Active Albuterol Sulfate Active 1Data migrated from [facility] on 04/30/15. Originally documented as SULFA. Dermatological problems, e.g., rash, hives Medications amLODIPine 10 mg, 1 tab, Route: PO, Drug form: TAB, Daily, Dosing Weight 89.091, kg, Start date: 02/14/18 9:00:00 CDT, Duration: 30 day, Stop date: 03/15/18 9:00:00 CDT Notes: (Same as: Norvasc) Start Date: 02/14/18 Stop Date: 02/13/18 Status: Canceled amLODIPine 10 mg oral tablet 10 mg=1 tab, PO, Daily, # 30 tab, 0 Refill(s) Start Date: 02/13/18 Status: Ordered aspirin 81 mg tablet, enteric coated 81 mg, 1 tab, Route: PO, Drug form: ECTAB, Bedtime, Dosing Weight 89.091, kg, St art date: 02/13/18 21:00:00 CDT, Duration: 30 day, Stop date: 03/14/18 21:00:00 CDT Notes: Do not crush or chew.(Same As: Ecotrin) Start Date: 02/13/18 Stop Date: 02/13/18 Status: Discontinued atorvastatin 80 mg, 2 tab, Route: PO, Drug form: TAB, Bedtime, Dosing Weight 89.091, kg, Star t date: 02/13/18 21:00:00 CDT, Duration: 30 day, Stop date: 03/14/18 21:00:00 CD T Notes: (Same as: Lipitor) Start Date: 02/13/18 Stop Date: 02/13/18 Status: Discontinued levothyroxine 150 microgram, 1 tab, Route: PO, Drug form: TAB, Daily, Dosing Weight 89.091, kg , Start date: 02/14/18 6:30:00 CDT, Duration: 30 day, Stop date: 03/15/18 6:30:0 0 CDT Notes: Take 1 hour before or 2 hours after meal; Enteral feeds may interefere wi th the absorption of this medication. (Same as: Levothroid) Start Date: 02/14/18 Stop Date: 02/13/18 Status: Canceled losartan 100 mg, 1 tab, Route: PO, Drug form: TAB, Daily, Dosing Weight 89.091, kg, PRN H ypertension, Start date: 02/13/18 16:04:00 CDT, Duration: 30 day, Stop date: 16:03:00 CDT Notes: (Same as: Nae) Start Date: 02/13/18 Stop Date: 02/13/18 Status: Discontinued mycophenolate mofetil 1,000 mg, 2 tab, Route: PO, Drug form: TAB, Q12H, Dosing Weight 89.091, kg, Star t date: 02/13/18 21:00:00 CDT, Duration: 30 day, Stop date: 03/15/18 9:00:00 CDT Notes: SEPARATE ANTACIDS from [employer] by 2 hrs.(Same As: CellCept) Start Date: 02/13/18 Stop Date: 02/13/18 Status: Discontinued nitroglycerin SL Tab 0.4 mg, 1 tab, Route: SL, Drug form: TAB, Q5Min, Dosing Weight 89.091, kg, PRN C hest Pain, Start date: 02/13/18 16:05:00 CDT, Duration: 3 doses or times, Stop d ate: Limited # of times Notes: (Same as:Nitroquick, Nitrostat)"Do Not Crush" Sublingual tablet Start Date: 02/13/18 Stop Date: 02/13/18 Status: Discontinued NS 1,000 mL 1,000 mL, Rate: 100 ml/hr, Infuse over: 10 hr, Route: IV, Dosing Weight 89.091 k g, Total Volume: 1,000, Start date: 02/13/18 7:42:00 CDT, Duration: 30 day, Stop date: 03/15/18 7:41:00 CDT, 2.13, m2 Start Date: 02/13/18 Stop Date: 02/13/18 Status: Discontinued pantoprazole 40 mg, 1 tab, Route: PO, Drug form: ECTAB, BID-Before Meals, Dosing Weight 89.09 1, kg, Start date: 02/13/18 16:30:00 CDT, Duration: 30 day, Stop date: 03/15/18 7:30:00 CDT Notes: Tablet should not be chewed or crushed.(Same as: Protonix) Start Date: 02/13/18 Stop Date: 02/13/18 Status: Discontinued Results BLOOD BANK RESULTS Most recent to 1 oldest [Reference Range]: ABO/Rh A POS *Unknown* (02/13/18 7:51 AM) Antibody Scrn Negative (02/13/18 7:51 AM) ELECTROLYTES Most recent to 1 oldest [Reference Range]: Sodium Lvl [135-145 143 mEq/L mEq/L] (02/13/18 7:51 AM) Potassium Lvl 3.5 mEq/L [3.5-5.1 mEq/L] (02/13/18 7:51 AM) Chloride Lvl [95-109 105 mEq/L mEq/L] (02/13/18 7:51 AM) CO2 [24-32 mEq/L] 28 mEq/L (02/13/18 7:51 AM) AGAP [10.0-20.0 13.5 mEq/L mEq/L] (02/13/18 7:51 AM) CHEM PANEL Most recent to 1 oldest [Reference Range]: Creatinine Lvl 1.29 mg/dL [0.50-1.40 mg/dL] (02/13/18 7:51 AM) eGFR 41 mL/min/1.73m2 1 *NA* (02/13/18 7:51 AM) BUN [7-22 mg/dL] 16 mg/dL (02/13/18 7:51 AM) Glucose Lvl [70-99 117 mg/dL mg/dL] *HI* (02/13/18 7:51 AM) Calcium Lvl 9.4 mg/dL [8.5-10.5 mg/dL] (02/13/18 7:51 AM) Magnesium Lvl 2.0 mg/dL [1.8-2.4 mg/dL] (02/13/18 7:51 AM) 1Result Comment: The eGFR is calculated [...] 1 oldest [Reference Range]: WBC [3.7-10.4 K/CMM] 5.8 K/CMM (02/13/18 7:51 AM) RBC [4.20-5.40 4.04 M/CMM M/CMM] *LOW* (02/13/18:51 AM) Hgb [12.0-16.0 g/dL] 12.1 g/dL (02/13/18 7:51 AM) Hct [36.0-48.0 %] 36.8 % (02/13/18 7:51 AM) MCV [80.0-98.0 fL] 91.1 fL (02/13/18 7:51 AM) MCH [27.0-31.0 pg] 30.1 pg (02/13/18 7:51 AM) MCHC [32.0-36.0 33.0 g/dL g/dL] (02/13/18 7:51 AM) RDW [11.5-14.5 %] 15.8 % *HI* (02/13/18 7:51 AM) MPV [7.4-10.4 fL] 8.4 fL (02/13/18 7:51 AM) Platelet [133-450 203 K/CMM K/CMM] (02/13/18 7:51 AM) Segs [45.0-75.0 %] 66.9 % (02/13/18 7:51 AM) Lymphocytes 18.0 % [20.0-40.0 %] *LOW* (02/13/18 7:51 AM) Monocytes [2.0-12.0 10.8 % %] (02/13/18 7:51 AM) Eosinophils [0.0-4.0 3.6 % %] (02/13/18 7:51 AM) Basophils [0.0-1.0 0.7 % %] (02/13/18 7:51 AM) Segs-Bands # 3.9 K/CMM [1.5-8.1 K/CMM] (02/13/18 7:51 AM) Lymphocytes # 1.1 K/CMM [1.0-5.5 K/CMM] (02/13/18 7:51 AM) Monocytes # [0.0-0.8 0.6 K/CMM K/CMM] (02/13/18 7:51 AM) Eosinophils # 0.2 K/CMM [0.0-0.5 K/CMM] (02/13/18 7:51 AM) PT [12.0-14.7 13.2 seconds seconds] (02/13/18 7:51 AM) INR [0.85-1.17] 1.00 (02/13/18 7:51 AM) PTT [22.9-35.8 35.3 seconds seconds] (02/13/18 7:51 AM) Immunizations Given and Recorded Vaccine Date [...] No entered on: 02/13/18 Assessment and Plan No data available for this section
--- OUTSIDE RECORDS SUMMARY | 2019-02-05 08:58 | XMS REPORT ---
Author Author Jeanne Perera [facility] eClinicalWorks Address Unknown Phone Unavailable Care Team Providers Care Regional Recruiter Name Role Phone Jeanne Perera CP Unavailable Allergies, Adverse Reactions, Alerts Substance Reaction Event Type codeine Info Not Available Drug Allergy sulfa Info Not Available Drug Allergy Vicodin Info Not Available Drug Allergy Problems Problem Type Condition Code Onset Dates Condition Status Assessment Acute tracheobronchitis J20.9 Active Problem Pure hypercholesterolemia E78.00 Active Problem [...] Instructions Start Date End Date Status Dosage Promethazine-DM [facility] 65434263384 6.25-15 MG/5ML Orally twice a day (bid) as needed (prn) Nov 06, 2017 Nov 11, 2017 Active 5 ml as needed Mycophenolate Mofetil ND 94263568203 500 MG Orally Twice a day Active 2 tablets Benazepril HCl ND 63076711301 40 MG by mouth daily Active 1 tablet once a day orally 90 days Vagifem ND 49589716457 10 MCG Vaginal Active 1 tablet Levothyroxine Sodium ND 66138769566 150 MCG orally daily Active 1 TABLET ONCE A DAY ORALLY 90 DAYS Multi Vitamin Daily ND 32120358481 Orally Once a day Active 1 tablet LamISIL AT [place] ND 0 1 % Externally Twice a day Jun 28, 2017 December 25, 2017 Active 1 drop to affected area Losartan Potassium ND 58300101523 100 MG Orally Once a day Active 1 tablet Metoprolol Succinate ER ND 65045368788 50 MG Orally Once a day Active 1 tablet Amlodipine Besylate ND 85779177601 10 MG Orally Once a day Active 1 tablet Levaquin ND 39697075101 500 MG Orally Once a day Nov 06, 2017 Nov 16, 2017 Active 1 tablet Albuterol Sulfate HFA [facility] [address]-75 108 (90 Base) MCG/ACT Inhalation twice a day as needed Nov 06, 2017 Active 2 puffs as needed Q85-Wkzzys [facility] 35929060256 1 MG Orally Active not defined Benzonatate [facility] 90092274864 200 MG Orally Three times a day Active [address] [facility] 43681329166 4 MG Orally as directed Nov 06, 2017 Active as directed Baby Aspirin ND 0 Active not defined Atorvastatin Calcium [facility] 99168450058 80 MG Orally Once a day Active 1 tablet Vital Signs Date/Time: Nov 06, 2017 BMI 29.29 Index Weight 210 lbs Height 71 in Temperature 99.0 F Blood Pressure Diastolic 89 mm Hg Blood Pressure Systolic 164 mm Hg Results No Known Results Summary Purpose eClinicalWorks Submission
--- OUTSIDE RECORDS SUMMARY | 2019-02-05 08:58 | XMS REPORT ---
Author Author Jeanne Perera Organization [employer] Address Unknown Phone Unavailable Care Team Providers Care Record Press Supervisor Name Role Phone Jeanne Perera CP Unavailable Allergies No Known Allergies Problems Problem Type Condition Code Onset Dates Condition Status Problem Breast cancer screening Z12.39 Active Assessment Essential hypertension I10 Active Problem Other chronic pain G89.29 Active Problem Essential hypertension I10 Active Problem Difficulty walking R26.2 Active Problem Patient had no falls in past year Z78.9 Active Problem Screening for osteoporosis Z13.820 Active Problem Pure hypercholesterolemia E78.00 Active Problem Chronic kidney disease (CKD), stage III (moderate) N18.3 Active Medications Medication Code System Code Instructions Start Date End Date Status Dosage Losartan Potassium [facility] [address]-39 100 MG Orally Once a day Active 1 tablet Levothyroxine Sodium [facility] 33077697321 150 MCG orally daily Active 1 TABLET ONCE A DAY ORALLY 90 DAYS Results No Known Results Summary Purpose eClinicalWorks Submission
--- OUTSIDE RECORDS SUMMARY | 2019-02-05 08:59 | XMS REPORT ---
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 Problem Acquired hypothyroidism E03.9 Active Problem Age-related nuclear cataract of both eyes H25.13 Active Problem Essential hypertension I10 Active Problem Breast cancer screening Z12.39 Active Problem Other chronic pain G89.29 Active Problem Difficulty walking R26.2 Active Assessment Essential hypertension I10 Active Assessment Pure hypercholesterolemia E78.00 Active Assessment Age-related nuclear cataract of both eyes H25.13 Active Assessment Pre-operative clearance Z01.818 Active Assessment Acquired hypothyroidism E03.9 Active Assessment Chronic kidney disease (CKD), stage III (moderate) N18.3 Active Problem Chronic kidney disease (CKD), stage III (moderate) N18.3 Active Medications Medication Code System Code Instructions Start Date End Date Status Dosage Pantoprazole Sodium [facility] 39291661555 40 MG Orally BID Active 1 tablet Losartan Potassium ND 16439096953 100 MG orally daily Active 1 TABLET ONCE A DAY ORALLY 90 DAYS Levothyroxine Sodium ND 90278808727 150 MCG orally daily Active 1 TABLET ONCE A DAY ORALLY 90 DAYS Anoro Ellipta ND 08099897328 62.5-25 MCG/INH Inhalation Once a day Active 1 puff Multi Vitamin Daily ND 47113961084 Orally Once a day Active 1 tablet Vagifem ND 41512390612 10 MCG Vaginal Active 1 tablet L67-Oslqoz [facility] 07789815621 1 MG Orally Active not defined Atorvastatin Calcium ND 78620964731 40 MG Orally Once a day Active 1 tablet Metoprolol Succinate ER ND 84342596899 50 mg Orally Twice a day Active 1 tablet Breo Ellipta [facility] 18840694171 100-25 MCG/INH Inhalation Once a day Active 1 puff Amlodipine Besylate ND 35071209574 10 mg Orally bid Active 1 tablet Atorvastatin Calcium [facility] 33133407900 40 MG Orally Once a day Sep 17, 2018 Active 1 tablet Montelukast Sodium [facility] 74140978808 10 MG Orally Once a day Active 1 tablet Vital Signs Date/Time: January 15, 2019 BMI 29.98 Index Weight 215 lbs Height 71 in Temperature 98.3 F Blood Pressure Diastolic 77 mm Hg Blood Pressure Systolic 155 mm Hg Results Name Result Date Reference Range Unit Abnormality Flag TSH ----TSH 1.33 [id number] 0.40-4.50 mIU/L N LIPID PANEL ----CHOL/HDLC RATIO 3.7 87421180 <5.0 (calc) N ----LDL-CHOLESTEROL 86 88745486 mg/dL (calc) N ----NON HDL CHOLESTEROL 106 57779089 <130 mg/dL (calc) N ----CHOLESTEROL, TOTAL 146 60204364 <200 mg/dL N ----TRIGLYCERIDES 106 21246434 <150 mg/dL N ----HDL CHOLESTEROL 40 83758841 >50 mg/dL L COMPREHENSIVE METABOLIC PANEL ----ALBUMIN/GLOBULIN RATIO 1.7 87087702 1.0-2.5 (calc) N ----GLOBULIN 2.4 20957948 1.9-3.7 g/dL (calc) N ----ALKALINE PHOSPHATASE 63 85194498 33-130 U/L N ----BILIRUBIN, TOTAL 1.2 06746851 0.2-1.2 mg/dL N ----CHLORIDE 105 11922896 98-110 mmol/L N ----ALT 20 74612623 6-29 U/L N ----POTASSIUM 3.5 81431615 3.5-5.3 mmol/L N ----AST 23 02202856 10-35 U/L N ----SODIUM 141 87090702 135-146 mmol/L N ----BUN/CREATININE RATIO 18 88739369 6-22 (calc) N ----eGFR 67 93074571 > OR=60 mL/min/1.73m2 N ----CALCIUM 9.0 42090580 8.6-10.4 mg/dL N ----CARBON DIOXIDE 26 20190115 20-32 mmol/L N ----ALBUMIN 4.1 34310157 3.6-5.1 g/dL N ----PROTEIN, TOTAL 6.5 79528365 6.1-8.1 g/dL N ----GLUCOSE 93 23196650 65-99 mg/dL N ----UREA NITROGEN (BUN) 17 20190115 7-25 mg/dL N ----CREATININE 0.96 30475718 0.60-0.93 mg/dL H ----eGFR NON-AFR. CYMRO 58 95424411 > OR=60 mL/min/1.73m2 L T4, FREE ----T4, FREE 1.9 38746951 0.8-1.8 ng/dL H CBC (INCLUDES DIFF/PLT) ----RDW 13.9 58192138 11.0-15.0 % N ----MCHC 33.2 73379075 32.0-36.0 g/dL N ----MCH 30.4 24523876 27.0-33.0 pg N ----MCV 91.7 16660407 80.0-100.0 fL N ----HEMATOCRIT 37.4 20913460 35.0-45.0 % N ----HEMOGLOBIN 12.4 84735298 11.7-15.5 g/dL N ----BASOPHILS 0.6 54151271 % N ----RED BLOOD CELL COUNT 4.08 10805718 3.80-5.10 Million/uL N ----WHITE BLOOD CELL COUNT 6.3 98956683 3.8-10.8 Thousand/uL N ----MONOCYTES 9.5 40697048 % N ----ABSOLUTE EOSINOPHILS 170 62672961 15-500 cells/uL N ----EOSINOPHILS 2.7 47952686 % N ----ABSOLUTE BASOPHILS 38 89700245 0-200 cells/uL N ----NEUTROPHILS 65.6 97326242 % N ----LYMPHOCYTES 21.6 78213369 % N ----MPV 10.9 75743830 7.5-12.5 fL N ----ABSOLUTE NEUTROPHILS 4133 74046261 5977-6774 cells/uL N ----ABSOLUTE LYMPHOCYTES 1361 26745649 850-3900 cells/uL N ----ABSOLUTE MONOCYTES 599 66971920 200-950 cells/uL N ----PLATELET COUNT 251 83968866 140-400 Thousand/uL N Summary Purpose eClinicalWorks Submission
--- OUTSIDE RECORDS SUMMARY | 2019-02-05 08:59 | XMS REPORT ---
Author Author Jeanne Perera [facility] eClinicalWorks Address Unknown Phone Unavailable Care Team Providers Care Press Smith Helper Name Role Phone Trever Jeanne Unavailable Allergies, Adverse Reactions, Alerts Substance Reaction Event Type codeine Info Not Available Drug Allergy sulfa Info Not Available Drug Allergy Vicodin Info Not Available Drug Allergy Encounters Encounter Location Date Unknown [facility] Aug 13, 2014 New Refill Request [facility] May 20, 2015 New Refill Request [facility] Jun 19, 2015 sinus issues [facility] Nov 05, 2014 Unknown [facility] Sep 02, 2014 Unknown [facility] Oct 15, 2014 New Refill Request [facility] Nov 01, 2014 New Refill Request [facility] Nov 24, 2015 Unknown [facility] Jun 29, 2015 New Refill Request [facility] Aug 14, 2015 New Refill [facility] Nov 07, 2016 Handicap Placard [facility] Nov 10, 2016 Unknown [facility] Aug 03, 2016 New Refill Request [facility] Sep 04, 2016 New Refill Request [facility] March 29, 2016 New Refill Request [facility] Jul 20, 2016 Problems Problem Type Condition ICD-9 Code Onset Dates Condition Status Assessment Essential hypertension I10 Active Problem Breast cancer screening Z12.39 Active Assessment Difficulty walking R26.2 Active Problem Other chronic pain G89.29 Active Problem Essential hypertension I10 Active Problem Difficulty walking R26.2 Active Problem Patient had no falls in past year Z78.9 Active Problem Screening for osteoporosis Z13.820 Active Problem Pure hypercholesterolemia E78.00 Active Problem Chronic kidney disease (CKD), stage III (moderate) N18.3 Active Assessment Other chronic pain G89.29 Active Assessment Pain in left knee M25.562 Active Assessment At risk for falling Z91.81 Active Assessment Pure hypercholesterolemia E78.00 Active Medications Medication Code System Code Instructions Start Date End Date Status Dosage [id number] MEDISPAN 19596-53753 1 MG Orally Active Unknown Mycophenolate Mofetil [facility] [address]-07 500 MG Orally Twice a day Active 2 tablets Atorvastatin Calcium [facility] [address]-54 80 MG Orally Once a day Active 1 tablet Benazepril HCl [facility] [address]-74 40 MG Orally Once a day Active 1 tablet Vagifem [facility] [address]-75 10 MCG Vaginal Active 1 tablet Amlodipine Besylate [facility] [address]-35 10 MG Orally Once a day Active 1 tablet Multi Vitamin Daily [facility] 32011-12689 Orally Once a day Active 1 tablet Losartan Potassium [facility] [address]-59 100 MG Orally Once a day Active 1 tablet Metoprolol Succinate ER [facility] [address]-12 50 MG Orally Once a day Active 1 tablet Levothyroxine Sodium [facility] [address]-64 150 MCG Orally Once a day Active 1 tablet Baby Aspirin Unknown 0 Active Unknown Social History Social History Element Qualifiers Date Reported Tobacco Use: . Are you a: Former Smoker Nov 10, 2016 Alcohol Screening: . Points: 2, Interpretation: Negative Nov 10, 2016 Sexual Hx: . Have you ever had an STD?: Yes, Other?: Yes Nov 10, 2016 Marital Status: . Nov 10, 2016 Caffeine intake? . Status: No Nov 10, 2016 Do you exercise? . Answer: Yes Nov 10, 2016 Do you drink alcohol? . Do you drink alcohol? Yes Nov 10, 2016 Occupation: . Unemployed Nov 10, 2016 Vital Signs Date/Time: Nov 10, 2016 Weight 213 lbs Height 71 in Temperature 97.2 F Blood Pressure Diastolic 85 mm Hg Blood Pressure Systolic 164 mm Hg Summary Purpose eClinicalWorks Submission
--- OUTSIDE RECORDS SUMMARY | 2019-02-05 08:59 | XMS REPORT ---
Author Author Jeanne Perera [facility] eClinicalWorks Address Unknown Phone Unavailable Care Team Providers Care Deck Cadet Name Role Phone Jeanne Perera Unavailable Encounters Encounter Location Date Unknown [facility] Aug 13, 2014 New Refill Request [facility] May 20, 2015 New Refill Request [facility] Jun 19, 2015 sinus issues [facility] Nov 05, 2014 Unknown [facility] Sep 02, 2014 Unknown [facility] Oct 15, 2014 New Refill Request [facility] Nov 01, 2014 New Refill Request [facility] Nov 24, 2015 Unknown [facility] Jun 29, 2015 New Refill Request [facility] Aug 14, 2015 Unknown [facility] Aug 03, 2016 New Refill Request [facility] March 29, 2016 New Refill Request [facility] Jul 20, 2016 Problems Problem Type Condition ICD-9 Code Onset Dates Condition Status Problem Pure hypercholesterolemia E78.00 Active Problem Chronic kidney disease (CKD), stage III (moderate) N18.3 Active Problem Essential hypertension I10 Active Problem Breast cancer screening Z12.39 Active Problem Patient had no falls in past year Z78.9 Active Problem Screening for osteoporosis Z13.820 Active Social History Social History Element Qualifiers Date Reported Tobacco Use: . Are you a: Former Smoker Aug 01, 2016 Alcohol Screening: . Points: 2, Interpretation: Negative Aug 01, 2016 Sexual Hx: . Have you ever had an STD?: Yes, Other?: Yes Aug 01, 2016 Marital Status: . Aug 01, 2016 Caffeine intake? . Status: No Aug 01, 2016 Do you exercise? . Answer: Yes Aug 01, 2016 Do you drink alcohol? . Do you drink alcohol? Yes Aug 01, 2016 Occupation: . Unemployed Aug 01, 2016 Summary Purpose eClinicalWorks Submission
--- OUTSIDE RECORDS SUMMARY | 2019-02-05 08:59 | XMS REPORT ---
Author Author Jeanne Perera [facility] eClinicalWorks Address Unknown Phone Unavailable Care Team Providers Care Sandfill Operator Name Role Phone Jeanne Perera Unavailable Encounters Encounter Location Date Unknown [facility] Aug 13, 2014 New Refill Request [facility] May 20, 2015 New Refill Request [facility] Jun 19, 2015 sinus issues [facility] Nov 05, 2014 Unknown [facility] Sep 02, 2014 Unknown [facility] Oct 15, 2014 New Refill Request [facility] Nov 01, 2014 Unknown [facility] Jun 29, 2015 New Refill Request [facility] Aug 14, 2015 Problems Problem Type Condition ICD-9 Code Onset Dates Condition Status Problem Dysphagia 787.20 Active Problem HTN (hypertension) 401.9 Active Problem Hypothyroidism 244.9 Active Problem CKD (chronic kidney disease) 585.9 Active Problem Motion sickness 994.6 Active Problem HLD (hyperlipidemia) 272.4 Active Problem GERD (gastroesophageal reflux disease) 530.81 Active Medications Medication Code System Code Instructions Start Date End Date Status Dosage Lipitor MEDIAN [address]-49 80 mg Orally Once a day Active 1 tablet Social History Social History Element Qualifiers Date Reported Tobacco Use: . Are you a: former smoker, What year did you quit? 30 yrs ago Jun 29, 2015 Do you drink alcohol? . Status: Yes, Type: Beer, How Often? Socially, Quantity: 1 Jun 29, 2015 Summary Purpose eClinicalWorks Submission
--- OUTSIDE RECORDS SUMMARY | 2019-02-05 08:59 | XMS REPORT ---
Author Author Jeanne Perera Organization eClinicalWorks Address Unknown Phone Unavailable Care Team Providers Care Steam Conditioner Operator Name Role Phone Jeanne Perera CP Unavailable Allergies No Known Allergies Problems Problem Type Condition Code Onset Dates Condition Status Problem Chronic kidney disease (CKD), stage III (moderate) N18.3 Active Problem Screening for osteoporosis Z13.820 Active Problem Pure hypercholesterolemia E78.00 Active Assessment Chronic kidney disease (CKD), stage III (moderate) N18.3 Active Problem Acquired hypothyroidism E03.9 Active Problem Difficulty walking R26.2 Active Problem 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
--- OUTSIDE RECORDS SUMMARY | 2019-02-05 08:59 | XMS REPORT ---
Author Author Jeanne Perera Organization eClinicalWorks Address Unknown Phone Unavailable Care Team Providers Care Machine Castings Plasterer Name Role Phone Jeanne Perera CP Unavailable [...] Date End Date Status Dosage Levothyroxine Sodium [facility] 20759970375 150 MCG orally daily Active 1 TABLET ONCE A DAY ORALLY 90 DAYS Results No Known Results Summary Purpose eClinicalWorks Submission
--- OUTSIDE RECORDS SUMMARY | 2019-02-05 08:59 | XMS REPORT ---
Author Author Jeanne Perera Organization eClinicalWorks Address Unknown Phone Unavailable Care Team Providers Care Training Systems Officer Name Role Phone Jeanne Perera Unavailable Encounters Encounter Location Date Unknown [facility] Aug 13, 2014 New Refill Request [facility] May 20, 2015 New Refill Request [facility] Jun 19, 2015 sinus issues [facility] Nov 05, 2014 Unknown [facility] Sep 02, 2014 Unknown [facility] Oct 15, 2014 New Refill Request [facility] Nov 01, 2014 New Refill Request [facility] Nov 24, 2015 Unknown [facility] Jun 29, 2015 New Refill Request [facility] Aug 14, 2015 Unknown [facility] Aug 03, 2016 New Refill Request [facility] Sep 04, 2016 New Refill Request [facility] March 29, 2016 New Refill Request [facility] Jul 20, 2016 Problems Problem Type Condition ICD-9 Code Onset Dates Condition Status Problem Pure hypercholesterolemia E78.00 Active Problem Chronic kidney disease (CKD), stage III (moderate) N18.3 Active Problem Essential hypertension I10 Active Problem Breast cancer screening Z12.39 Active Problem Patient had no falls in past year Z78.9 Active Problem Screening for osteoporosis Z13.820 Active Medications Medication Code System Code Instructions Start Date End Date Status Dosage Atorvastatin Calcium MEDISPAN [address]-86 80 MG Orally Once a day Active [...]
--- OUTSIDE RECORDS SUMMARY | 2019-02-05 08:59 | XMS REPORT ---
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
--- OUTSIDE RECORDS SUMMARY | 2019-02-05 08:59 | XMS REPORT ---
Author Author Jeanne Perera Organization eClinicalWorks Address Unknown Phone Unavailable Care Team Providers Care Book Agent Name Role Phone Jeanne Perera CP Unavailable [...] G89.29 Active Problem Essential hypertension I10 Active Assessment Chronic kidney disease (CKD), stage III (moderate) N18.3 Active Assessment Pure hypercholesterolemia E78.00 Active Assessment Acquired hypothyroidism E03.9 Active Assessment Essential hypertension I10 Active Assessment Other chronic pain G89.29 Active Medications Medication Code System Code Instructions Start Date End Date Status Dosage Levothyroxine Sodium [facility] 68428113797 150 MCG orally daily Active 1 TABLET ONCE A DAY ORALLY 90 DAYS [id number] [facility] 93380265589 1 MG Orally Active not defined Losartan Potassium ND 77554666662 100 MG orally daily Active 1 TABLET ONCE A DAY ORALLY 90 DAYS Atorvastatin Calcium [facility] 32531172353 40 MG Orally Once a day Sep 17, 2018 Active 1 tablet Vagifem ND 52255602148 10 MCG Vaginal Active 1 tablet Pantoprazole Sodium [facility] [address]-21 40 MG Orally BID Active 1 tablet Montelukast Sodium ND 39857674137 10 MG Orally Once a day Active 1 tablet Metoprolol Succinate ER ND 05058647134 50 mg Orally Twice a day Active 1 tablet Amlodipine Besylate ND 42793902906 10 mg Orally bid Active 1 tablet Atorvastatin Calcium ND 18999993130 40 MG Orally Once a day Active 1 tablet Multi Vitamin Daily ND 26647424097 Orally Once a day Active 1 tablet Lanny Haynes [facility] 97969818870 100-25 MCG/INH Inhalation Once a day Active 1 puff Vital Signs Date/Time: Sep 17, 2018 BMI 31.38 Index Weight 225 lbs Height 71 in Temperature 98.0 F Blood Pressure Diastolic 73 mm Hg Blood Pressure Systolic 142 mm Hg Results No Known Results Summary Purpose eClinicalWorks Submission
--- OUTSIDE RECORDS SUMMARY | 2019-02-05 08:59 | XMS REPORT ---
Author Author Jeanne Perera [facility] eClinicalWorks Address Unknown Phone Unavailable Care Team Providers Care Distribution Supervisor Name Role Phone Jeanne Perera Unavailable Encounters Encounter Location Date Unknown [facility] Aug 13, 2014 New Refill Request [facility] May 20, 2015 Unknown [facility] Sep 02, 2014 Unknown [facility] Oct 15, 2014 New Refill Request [facility] Nov 01, 2014 Problems Problem Type Condition ICD-9 Code Onset Dates Condition Status Problem HLD (hyperlipidemia) 272.4 Active Problem GERD (gastroesophageal reflux disease) 530.81 Active Problem HTN (hypertension) 401.9 Active Problem CKD (chronic kidney disease) 585.9 Active Problem Motion sickness 994.6 Active Medications Medication Code System Code Instructions Start Date End Date Status Dosage Levothyroxine Sodium [facility] 73792394038 150 Active TAKE 1 TABLET BY MOUTH EVERY DAY Social History Social History Element Qualifiers Date Reported Tobacco Use: . Are you a: former smoker, What year did you quit? 30 yrs ago Nov 05, 2014 Do you drink alcohol? . Status: Yes, Type: Beer, How Often? Socially, Quantity: 1 Nov 05, 2014 Summary Purpose eClinicalWorks Submission
--- OUTSIDE RECORDS SUMMARY | 2019-02-05 08:59 | XMS REPORT | Summary of Care ---
Author Author Moise Lowe, December Unknown Address [facility] Phone Unavailable Care Team Providers Care Assistant Community Manager Name Role Phone ROBERTO CARLOS PRESTON M.D. Unavailable Unavailable JOSEP TAPIA MD Unavailable Unavailable Unavailable Unavailable Functional Status Name Dates Details Functional status health issues are not documented Status: Name Dates Details Cognitive status health issues are not documented Status: Problems Name Dates Details Carotid bruit (785.9, R09.89) Status: Active Essential (primary) hypertension (401.9, I10) Status: Active Hyperlipidemia (272.4, E78.5) Status: Active Lymphedema (457.1, I89.0) Status: Active Mitral valve disease (394.9, I05.9) Status: Active Murmur (785.2, R01.1) Status: Active PVD (peripheral vascular disease) (443.9, I73.9) Status: Active Tricuspid regurgitation (397.0, I07.1) Status: Active Medications Name Dates Details Levothyroxine Sodium 150 MCG Oral Tablet TAKE 1 TABLET DAILY. Active Cozaar 100 MG Oral Tablet TAKE 1 TABLET DAILY. * Refills: 0 Active Metoprolol Succinate ER 50 MG Oral Tablet Extended Release 24 Hour TAKE 1 TABLET TWICE DAILY * Quantity: 180 Refills: 0 ROBERTO CARLOS PRESTON M.D. Active Atorvastatin Calcium 40 MG Oral Tablet TAKE 1 TABLET BEDTIME * Quantity: 90 Refills: 1 ROBERTO CARLOS PRESTON M.D. Active Multivitamins TABS TAKE 1 TABLET DAILY. * Refills: 0 Active CellCept 500 MG Oral Tablet TAKE 1 TABLET DAILY DIRECTED. * Refills: 0 Active Pantoprazole Sodium 40 MG Oral Tablet Delayed Release TAKE 1 TABLET DAILY. * Refills: 0 Active AmLODIPine Besylate 10 MG Oral Tablet TAKE 1 TABLET DAILY. * Refills: 0 Active 30 Tablet Bottle Co Q-10 200 MG Oral Capsule TAKE 1 CAPSULE DAILY. * Refills: 0 Active Aspirin EC 81 MG Oral Tablet Delayed Release TAKE 1 TABLET DAILY * Refills: 0 ROBERTO CARLOS PRESTON M.D. * Start : 17-Jan-2018 Active HydroCHLOROthiazide 25 MG Oral Tablet TAKE 1 TABLET EVERY MORNING * Quantity: 30 Refills: 5 ROBERTO CARLOS PRESTON M.D. * Start : 30-Apr-2018 Active Allergies and Adverse Reactions Name Dates Details CeleBREX CAPS (Allergy) Status: Active Codeine Derivatives (Allergy) Status: Active Sulfa Drugs (Allergy) Status: Active Vicodin TABS (Allergy) Status: Active Past Medical History Name Dates Details History of essential hypertension (V12.59, Z86.79) Status: Resolved History of hyperlipidemia (V12.29, Z86.39) Status: Resolved History of hypothyroidism (V12.29, Z86.39) Status: Resolved History of Pulmonary Embolism (V12.51) Status: Resolved History of Renal failure (586, N19) Status: Resolved Procedures Procedure Dates Details History of Tonsillectomy Completed History of Breast Surgery Lumpectomy Completed History of Appendectomy Completed History of Hysterectomy Completed History of Laminectomy Lumbar Completed History of Knee Replacement Completed History of Open Renal Biopsy Completed History of Percutaneous Vertebral Augmentation Kyphoplasty Completed Immunization Name Dates Details Immunizations not documented Family History Name Dates Details Family history of Heart Disease (V17.49) Status: Active Social History Name Dates Details - Status: Name Dates Details Former smoker Vital Signs Date Test Result Details No Known Vitals to report Results Date Description Value Details Results not documented Plan of Care Name Dates Details Planned Observations Planned Goals not documented Planned Encounters Appointment; ROBERTO CARLOS PRESTON M.D. On: 12-Jun-2018 14:50 Interventions Provided Plan* HTN * - Well controlled, continue Norvasc 10 mg daily, Losartan 100 mg daily + Toprol XL * - Low salt diet * MEMBRANOUS NEPHROPATHY * - follows with renal - DR Cummins * PALPITATIONS * - s/p ablation afib with aberrancy by EP - Dr Gann * - corangio shows non flow limiting CAD. * - Recent TTE with Doppler showed preserved LVEF * BIGEMINY * - Resolved * HLD * - On lipitor, check lipid panel * LEG EDEMA * - s/p endovenous RFA of left and right SSV ablation. * - Still has pressed or blown glass worker vein patent in left calf. Will start HCTZ and recheck US in 1 month to reassess pressed or blown glass worker patency. If patent, will ablate * - Continue compression stockings * RTC 1 month Discussion/Summary* Reviewed and discussed clinical cardiac findings and medications. * EKG reviewed. Instructions Name Dates Details Instructions not documented Encounters Appointment; ROBERTO CARLOS PRESTON M.D. Encounter Diagnosis: Problem not documented On: 20-Dec-2017 14:30 Appointment; ANDERSON VIGIL M.D. Encounter Diagnosis: Problem not documented On: 04-Jan-2018 14:00 Appointment; ROBERTO CARLOS PRESTON M.D. Encounter Diagnosis: Problem not documented On: 17-Jan-2018 13:30 Appointment; ROBERTO CARLOS PRESTON M.D. Encounter Diagnosis: Problem not documented On: 19-Jan-2018 14:00 Appointment; ZULMA GANN Encounter Diagnosis: Problem not documented On: 25-Jan-2018 15:00 Appointment; ROBERTO CARLOS PRESTON M.D. Encounter Diagnosis: Problem not documented On: 09-Feb-2018 13:00 Appointment; ROBERTO CARLOS PRESTON M.D. Encounter Diagnosis: Problem not documented On: 14-Feb-2018 15:00 Appointment; ROBERTO CARLOS PRESTON M.D. Encounter Diagnosis: Problem not documented On: 28-Feb-2018 14:30 Appointment; ZULMA GANN Encounter Diagnosis: Problem not documented On: 15-Mar-2018 14:15 Appointment; ROBERTO CARLOS PRESTON M.D. Encounter Diagnosis: Problem not documented On: 29-Mar-2018 11:30 Appointment; ROBERTO CARLOS PRESTON M.D. Encounter Diagnosis: Problem not documented On: 06-Apr-2018 14:00 Appointment; SE, VENOUS Encounter Diagnosis: Problem not documented On: 11-Apr-2018 15:00 Appointment; SE, [facility] Encounter Diagnosis: Problem not documented On: 13-Apr-2018 14:00 Appointment; SE, [facility] Encounter Diagnosis: Problem not documented On: 18-Apr-2018 14:00 Appointment; ROBERTO CARLOS PRESTON M.D. Encounter Diagnosis: Problem not documented On: 30-Apr-2018 15:00 Appointment; [facility], [facility] Encounter Diagnosis: Problem not documented On: 06-Jun-2018 14:00 Appointment; ROBERTO CARLOS PRSETON M.D. Encounter Diagnosis: Problem not documented On: 12-Jun-2018 14:50
--- OUTSIDE RECORDS SUMMARY | 2019-02-05 08:59 | XMS REPORT ---
Author Author Jeanne Perera [facility] eClinicalWorks Address Unknown Phone Unavailable Care Team Providers Care Electrician Name Role Phone Jeanne Perera Unavailable Encounters Encounter Location Date Unknown [facility] Aug 13, 2014 New Refill Request [facility] May 20, 2015 New Refill Request [facility] Jun 19, 2015 sinus issues [facility] Nov 05, 2014 Unknown [facility] Sep 02, 2014 New Refill Request [facility] March 29, 2016 Unknown [facility] Oct 15, 2014 New Refill Request [facility] Nov 01, 2014 New Refill Request [facility] Nov 24, 2015 Unknown [facility] Jun 29, 2015 New Refill Request [facility] Aug 14, 2015 Problems Problem Type Condition [...] Date End Date Status Dosage Levothyroxine Sodium [facility] 54431921679 150 Active TAKE 1 TABLET BY MOUTH [...]
--- OUTSIDE RECORDS SUMMARY | 2019-02-05 08:59 | XMS REPORT ---
Author Author Jeanne Perera [facility] eClinicalWorks Address Unknown Phone Unavailable Care Team Providers Care Presiding Steward Name Role Phone Jeanne Perera Unavailable Encounters Encounter Location Date Unknown [facility] Aug 13, 2014 New Refill Request [facility] May 20, 2015 New Refill Request [facility] Jun 19, 2015 sinus issues [facility] Nov 05, 2014 Unknown [facility] Sep 02, 2014 New Refill Request [facility] March 29, 2016 Unknown [facility] Oct 15, 2014 New Refill Request [facility] Jul 20, 2016 New Refill Request [facility] Nov 01, 2014 New Refill Request [facility] Nov 24, 2015 Unknown [facility] Jun 29, 2015 New Refill Request [facility] Aug 14, 2015 Problems Problem Type Condition ICD-9 Code Onset Dates Condition Status Problem Dysphagia 787.20 Active Problem HTN (hypertension) 401.9 Active Problem Hypothyroidism 244.9 Active Problem CKD (chronic kidney disease) 585.9 Active Problem Motion sickness 994.6 Active Problem HLD (hyperlipidemia) 272.4 Active Problem GERD (gastroesophageal reflux disease) 530.81 Active Social History Social History Element Qualifiers Date Reported Tobacco Use: . Are you a: former smoker, What year did you quit? 30 yrs ago Jun 29, 2015 Do you drink alcohol? . Status: Yes, Type: Beer, How Often? Socially, Quantity: 1 Jun 29, 2015 Summary Purpose eClinicalWorks Submission
--- OUTSIDE RECORDS SUMMARY | 2019-02-05 08:59 | XMS REPORT ---
Author Author Jeanne Perera Organization [employer] Address Unknown Phone Unavailable Care Team Providers Care Rivet Hole Machine Operator Name Role Phone Jeanne Perera CP [...] Date End Date Status Dosage Levothyroxine Sodium [facility] 32822352391 150 MCG orally daily Active 1 TABLET ONCE A DAY ORALLY 90 DAYS Results No Known Results Summary Purpose eClinicalWorks Submission
--- OUTSIDE RECORDS SUMMARY | 2019-02-05 08:59 | XMS REPORT ---
Author Author Jeanne Perera Organization [employer] Address Unknown Phone Unavailable Care Team Providers Care Sample Patternmaker Name Role Phone Jeanne Perera CP Unavailable Encounters Encounter Location Date Unknown [facility] Sep 02, 2014 Problems Problem Type Condition ICD-9 Code Onset Dates Condition Status Problem HLD (hyperlipidemia) 272.4 Active Problem GERD (gastroesophageal reflux disease) 530.81 Active Problem HTN (hypertension) 401.9 Active Problem CKD (chronic kidney disease) 585.9 Active Problem Motion sickness 994.6 Active Medications Medication Code System Code Instructions Start Date End Date Status Dosage Amlodipine Besylate MED[facility] [address]-16 10 MG Orally Once a day Active 1 tablet Lipitor MED[facility] [address]-49 40 MG Orally Once a day Active 1 tablet Metoprolol Succinate ER [facility] [address]-55 50 MG Orally Once a day Active 1 tablet Losartan Potassium [facility] [address]-85 100 MG Orally Once a day Active 1 tablet Social History Social History Element Qualifiers Date Reported Tobacco Use: . Are you a: former smoker, What year did you quit? 30 yrs ago Aug 13, 2014 Do you drink alcohol? . Status: Yes, Type: Beer, How Often? Socially, Quantity: 1 Aug 13, 2014 Summary Purpose eClinicalWorks Submission
--- OUTSIDE RECORDS SUMMARY | 2019-02-05 08:59 | XMS REPORT ---
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
--- OUTSIDE RECORDS SUMMARY | 2019-02-05 08:59 | XMS REPORT ---
Author Author Jeanne Perera Organization [employer] Address Unknown Phone Unavailable Care Team Providers Care Aircraft Structural Repair Mechanic Name Role Phone Jeanne Perera Unavailable Encounters Encounter Location Date Unknown [facility] Aug 13, 2014 New Refill Request [facility] May 20, 2015 New Refill Request [facility] Jun 19, 2015 sinus issues [facility] Nov 05, 2014 Unknown [facility] Sep 02, 2014 Unknown [facility] Oct 15, 2014 New Refill Request [facility] Nov 01, 2014 New Refill Request [facility] Nov 24, 2015 Unknown [facility] Jun 29, 2015 New Refill Request [facility] Aug 14, 2015 [facility] Nov 07, 2016 [facility] Aug 03, 2016 New Refill Request [facility] Sep 04, 2016 New Refill Request [facility] March 29, 2016 New Refill Request [facility] Jul 20, 2016 Problems Problem Type Condition ICD-9 Code Onset Dates Condition Status Problem Pure hypercholesterolemia E78.00 Active Problem Chronic kidney disease (CKD), stage III (moderate) N18.3 Active Problem Essential hypertension I10 Active Problem Breast cancer screening Z12.39 Active Assessment Essential hypertension I10 Active Problem Patient had no falls in [...]
--- OUTSIDE RECORDS SUMMARY | 2019-02-05 08:59 | XMS REPORT ---
Author Author Jeanne Perera Organization [employer] Address Unknown Phone Unavailable Care Team Providers Care Textile Clothing And Footwear Mechanic Name Role Phone Jeanne Perera Unavailable Encounters Encounter Location Date Unknown [facility] Aug 13, 2014 New Refill Request [facility] May 20, 2015 New Refill Request [facility] Jun 19, 2015 sinus issues [facility] Nov 05, 2014 Unknown [facility] Sep 02, 2014 Unknown [facility] Oct 15, 2014 New Refill Request [facility] Nov 01, 2014 New Refill Request [facility] Nov 24, 2015 Unknown [facility] Jun 29, 2015 New Refill Request [facility] Aug 14, 2015 Problems Problem Type [...]
--- OUTSIDE RECORDS SUMMARY | 2019-02-05 08:59 | XMS REPORT ---
Author Author Jeanne Perera Organization [employer] Address Unknown Phone Unavailable Care Team Providers Care Finish Filer Name Role Phone Jeanne Perera CP Unavailable Allergies, Adverse Reactions, Alerts Substance Reaction Event Type codeine Info Not Available Drug Allergy sulfa Info Not Available Drug Allergy Vicodin Info Not Available Drug Allergy Problems Problem Type Condition Code Onset Dates Condition Status Assessment Community acquired pneumonia of left upper lobe of lung J18.1 Active Problem Pure hypercholesterolemia E78.00 Active Problem Chronic kidney disease (CKD), stage III (moderate) N18.3 Active Assessment SOB (shortness of breath) R06.02 Active Problem Other chronic pain G89.29 Active Problem Difficulty walking R26.2 Active Problem Acquired hypothyroidism E03.9 Active Problem Patient had no falls in past year Z78.9 Active Problem Screening for osteoporosis Z13.820 Active Problem Essential hypertension I10 Active Problem Breast cancer screening Z12.39 Active Medications Medication Code System Code Instructions Start Date End Date Status Dosage Multi Vitamin Daily [facility] 85569991112 Orally Once a day Active 1 tablet Metoprolol Succinate ER ND 95966319813 50 mg Orally Twice a day Active 1/2 tablet Fluticasone Propionate ND 68122003270 50 MCG/ACT Nasally Once a day Nov 28, 2017 Active 1 spray in each nostril Albuterol Sulfate HFA [facility] [address]-90 108 (90 Base) MCG/ACT Inhalation twice a day as needed Nov 06, 2017 Active 2 puffs as needed Benazepril HCl ND 29553550021 40 mg by mouth daily Active 1 tablet once a day orally 90 days Mycophenolate Mofetil ND 25647504680 500 MG Orally Active 2 tablets in the morning and 1 tablet at night time Amlodipine Besylate ND 18030143749 10 mg Orally Once a day as needed Active 1/2 tablet Fexofenadine HCl ND 48586704045 60 MG Orally Twice a day Nov 28, 2017 January 27, 2018 Active 1 tablet as needed Baby Aspirin NDC 0 Active not defined Benzonatate [facility] 65898202414 200 MG Orally Three times a day Active 1 capsule Levothyroxine Sodium [facility] 78487896652 150 MCG orally daily Active 1 TABLET ONCE A DAY ORALLY 90 DAYS Atorvastatin Calcium [facility] 52251621614 80 mg Orally at bedtime Active 1/2 tablet D63-Ecmvgk [facility] 38875973243 1 MG Orally Active not defined Vagifem [facility] 36834952733 10 MCG Vaginal Active 1 tablet PredniSONE [facility] 30017330195 20 mg Orally 40mg, 30 mg 20 mg , 10 mg, taper dose January 12, 2018 January 17, 2018 Active as directed Medrol [facility] 09525731540 4 MG Orally as directed Nov 06, 2017 Active as directed Losartan Potassium [facility] 20243582252 100 mg Orally Once a day Active 1 tablet Atrovent HFA [facility] 75565213694 17 MCG/ACT Inhalation Four times a day as needed Nov 28, 2017 January 27, 2018 Active 2 puffs Azithromycin [facility] 72718347961 500 MG Orally daily January 12, 2018 January 22, 2018 Active 1 tab Vital Signs Date/Time: January 12, 2018 BMI 26.78 Index Weight 192 lbs Height 71 in Temperature 102.6 F Blood Pressure Diastolic 63 mm Hg Blood Pressure Systolic 125 mm Hg Results No Known Results Summary Purpose eClinicalWorks Submission
--- OUTSIDE RECORDS SUMMARY | 2019-02-05 08:59 | XMS REPORT ---
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 Assessment Pure hypercholesterolemia E78.00 Active Assessment Fatigue due to excessive exertion, subsequent encounter T73.3XXD Active Assessment Essential hypertension I10 Active Medications Medication Code System Code Instructions Start Date End Date Status Dosage Benzonatate [facility] 92430553558 200 MG Orally Three times a day Active 1 capsule Baby Aspirin ND 0 Active not defined Benazepril HCl [facility] 42561816465 40 mg by mouth daily Active 1 tablet once a day orally 90 days S95-Lopohd [facility] 20331318230 1 MG Orally Active not defined Atorvastatin Calcium [facility] 25241323286 80 mg Orally at bedtime Active 1/2 tablet Mycophenolate Mofetil [facility] [address]-34 500 mg Orally daily Active 1 tablet Metoprolol Succinate ER [facility] [address]-92 50 mg Orally Twice a day Active 1 tablet Amlodipine Besylate [facility] [address]-93 10 mg Orally Once a day as needed Active 1 tablet Vagifem [facility] 97921429454 10 MCG Vaginal Active 1 tablet Multi Vitamin Daily [facility] 75567729947 Orally Once a day Active 1 tablet Fluticasone Propionate [facility] 30499224091 50 MCG/ACT Nasally Once a day Nov 28, 2017 Active 1 spray in each nostril Levothyroxine Sodium [facility] 33997151514 150 MCG orally daily Active 1 TABLET ONCE A DAY ORALLY 90 DAYS Albuterol Sulfate HFA [facility] [address]-03 108 (90 Base) MCG/ACT Inhalation twice a day as needed Nov 06, 2017 Active 2 puffs as needed Medrol [facility] 50715713863 4 MG Orally as directed Nov 06, 2017 Active as directed Losartan Potassium [facility] 22433242249 100 mg Orally Once a day Active 1 tablet Vital Signs Date/Time: February 01, 2018 BMI 27.75 Index Weight 199 lbs Height 71 in Temperature 97.8 F Blood Pressure Diastolic 70 mm Hg Blood Pressure Systolic 136 mm Hg Results No Known Results Summary Purpose eClinicalWorks Submission
--- OUTSIDE RECORDS SUMMARY | 2019-02-05 08:59 | XMS REPORT ---
Author Author Jeanne ePrera Organization [employer] Address Unknown Phone Unavailable Care Team Providers Care Host/Hostess Name Role Phone Jeanne Perera Unavailable Encounters Encounter Location Date Unknown [facility] Sep 02, 2014 Unknown [facility] Oct 15, 2014 Social History Social History Element Qualifiers Date Reported Tobacco Use: . Are you a: former smoker, What year did you quit? 30 yrs ago Aug 13, 2014 Do you drink alcohol? . Status: Yes, Type: Beer, How Often? Socially, Quantity: 1 Aug 13, 2014 Summary Purpose eClinicalWorks Submission
[2019-02-05 11:52] VITALS: BP 163/78
== END | disposition home or self-care (01) ==
LOC: OR 08:52
PROVIDERS: ATTEND Ophthalmology
DX: H25.11 Age-related nuclear cataract, right eye (principal); I25.2 Old myocardial infarction; E78.5 Hyperlipidemia, unspecified; K21.9 Gastro-esophageal reflux disease without esophagitis; K44.9 Diaphragmatic hernia without obstruction or gangrene; K57.90 Diverticulosis of intestine, part unspecified, without perforation or abscess without bleeding; I12.9 Hypertensive chronic kidney disease with stage 1 through stage 4 chronic kidney disease, or unspecified chronic kidney disease; N18.3 Chronic kidney disease, stage 3 (moderate); H91.90 Unspecified hearing loss, unspecified ear; M54.9 Dorsalgia, unspecified; R06.02 Shortness of breath; E78.00 Pure hypercholesterolemia, unspecified; E03.9 Hypothyroidism, unspecified; Z88.6 Allergy status to analgesic agent; Z88.1 Allergy status to other antibiotic agents; Z88.2 Allergy status to sulfonamides; Z88.8 Allergy status to other drugs, medicaments and biological substances; Z79.82 Long term (current) use of aspirin; Z87.01 Personal history of pneumonia (recurrent); Z86.711 Personal history of pulmonary embolism; Z87.891 Personal history of nicotine dependence
CPT/HCPCS: 66984; J2250; V2632

== ENCOUNTER → 2019-02-19 | Day surgery (SDC) | payer MEDICARE, OTHER ==
[~2019-02-19] MED LIST changes: +HYDRALAZINE HCL 20 MG/ML VIAL ONE; +HYDRALAZINE HCL10 MG PO; -POVIDONE IODINE 5% (OPTH) 30 ML BTL ONE
[2019-02-19 12:50] VITALS: BP 159/73
== END | disposition home or self-care (01) ==
LOC: OR 10:04
PROVIDERS: ATTEND Ophthalmology
DX: H25.12 Age-related nuclear cataract, left eye (principal); E78.5 Hyperlipidemia, unspecified; I25.2 Old myocardial infarction; E03.9 Hypothyroidism, unspecified; K21.9 Gastro-esophageal reflux disease without esophagitis; K44.9 Diaphragmatic hernia without obstruction or gangrene; K76.9 Liver disease, unspecified; I12.9 Hypertensive chronic kidney disease with stage 1 through stage 4 chronic kidney disease, or unspecified chronic kidney disease; N18.9 Chronic kidney disease, unspecified; Z88.6 Allergy status to analgesic agent; Z88.1 Allergy status to other antibiotic agents; Z88.2 Allergy status to sulfonamides; Z88.8 Allergy status to other drugs, medicaments and biological substances; Z79.82 Long term (current) use of aspirin; Z87.891 Personal history of nicotine dependence
CPT/HCPCS: 66984; J0360; J2250; V2632